=== PATIENT | male | born 1955 | race African-American/Black ===

== ENCOUNTER 2016-10-24 07:45 | Inpatient (IN) | payer OTHER ==
[~2016-10-24] VITALS: Ht 167.6 cm; Wt 65.9 kg
[~2016-10-24 07:45] MED LIST: ASPI-556 PO; METF1000 PO; SIMV-261 PO; TRIL8 PO
[2016-10-24] MEDS ORDERED: BENZ0.5T6 PO (07:58)
[2016-10-24] MEDS ORDERED: GLIP5 PO (07:58)
[2016-10-24 08:06] LABS: BASOPHILS # (AUTO) 0.03 K/uL (0.00-0.20); BASOPHILS % (AUTO) 0.3 % (0.0-2.0); EOSINOPHILS # (AUTO) 0.08 K/uL (0.00-0.70); EOSINOPHILS % (AUTO) 0.86 % (1.0-6.0); HEMATOCRIT 41.6 % (41-53); LYMPHOCYTES # (AUTO) 1.4 K/uL (1.0-4.8); LYMPHOCYTES % (AUTO) 14.7 % (22.0-44.0); MEAN CORPUSCULAR HEMOGLOBIN 28.6 pg (26.0-34.0); MEAN CORPUSCULAR HGB CONC 33.6 G/dL (31.0-37.0); MEAN CORPUSCULAR VOLUME 85 fL (80-100); MONOCYTES # (AUTO) 0.2 K/uL (0.1-1.0); MONOCYTES % (AUTO) 2.2 % (2.0-9.0); NEUTROPHILS # (AUTO) 7.8 K/uL (1.8-7.7); PLATELET COUNT (AUTO) 394 K/uL (150-450); RED BLOOD CELL COUNT(AUTO) 4.88 MIL/uL (4.50-5.90); RED CELL DISTRIBUTION WIDTH 14.5 % (11.5-14.5); WHITE BLOOD COUNT (AUTO) 9.5 K/uL (4.5-11.0)
[2016-10-24 08:06] LABS: GLUCOSE,POINT OF CARE 411 MG/DL (70-110)
[2016-10-24] MEDS ORDERED: LORazepam 2 MG/ML VIAL ONE (08:09)
[2016-10-24] MEDS ORDERED: DiphenhydrAMINE HCL 50 MG/ML VIAL ONE (08:09)
[2016-10-24] MEDS ORDERED: HALOPERIDOL LACTATE 5 MG/ML VIAL ONE (08:09)
[2016-10-24] MEDS ORDERED: INSULIN REGULAR, HUMAN 100 UNITS/ML IVP ONE (08:15)
[2016-10-24] MEDS ORDERED: HALOPERIDOL LACTATE 5 MG/ML VIAL IM ONE (08:15)
[2016-10-24] MEDS ORDERED: SODIUM CHLORIDE 0.9% 500 ML IV ONE (08:15)
[2016-10-24] MEDS ORDERED: LORazepam 2 MG/ML VIAL IM ONE (08:15)
[2016-10-24] MEDS ORDERED: DiphenhydrAMINE HCL 50 MG/ML VIAL IM ONE (08:15)
[2016-10-24 08:37] LABS: ALANINE AMINOTRANSFERASE 22 U/L (12-78); ALBUMIN 3.2 g/dL (3.4-5.0); ANION GAP 5 mmol/L (8-16); ASPARTATE AMINOTRANSFERASE 12 U/L (15-37); BILIRUBIN,TOTAL 0.3 mg/dL (0.1-1.0); CALCIUM, TOTAL 9.2 mg/dL (8.8-10.5); CARBON DIOXIDE 31 mmol/L (22-29); CHLORIDE 100 mmol/L (98-107); CREATININE 1.58 mg/dL (0.60-1.30); GLOMERULAR FILTR. RATE CALC 54 mL/min (>60); POTASSIUM 5.1 mmol/L (3.5-5.1); SODIUM SERUM 136 mmol/L (136-145); TOTAL PROTEIN, SERUM 8.5 g/dL (6.4-8.2); UREA NITROGEN, BLOOD 24 mg/dL (7-18)
[2016-10-24] MEDS ORDERED: ZOLPIDEM TARTRATE 10 MG TABLET PO PRN (09:00)
[2016-10-24] MEDS ORDERED: ACETAMINOPHEN 325 MG TABLET PO PRN (09:00)
[2016-10-24] MEDS: PANTOPRAZOLE SODIUM 40 MG DR TABLET PO SCH (09:00)
[2016-10-24] MEDS ORDERED: OxyCODONE HCL/ACETAMINOPHEN 5-325 MG TABLET PO PRN (09:00)
[2016-10-24] MEDS: BENZTROPINE MESYLATE 0.5 MG TABLET PO SCH (09:00)
[2016-10-24] MEDS ORDERED: DEXTROSE 50%-WATER 25 GM/50 ML SYRINGE IVP PRN (09:00)
[2016-10-24] MEDS: PIPERACILLIN/TAZO 3.375 GM/D5W 50 ML IV SCH ×3 (09:52→21:05)
[2016-10-24] MEDS ORDERED: VANCOMYCIN HCL 1 GM/D5% WATER 200 ML IV ONE (10:00)
[2016-10-24 10:07] LABS: GLUCOSE,POINT OF CARE 136 MG/DL (70-110)
[2016-10-24] MEDS ORDERED: IOVERSOL 350 MG/ML 100 ML VIAL ONE (10:25)
[2016-10-24] MEDS ORDERED: SODIUM CHLORIDE 0.9% 100 ML ONE (10:25)
[2016-10-24] MEDS ORDERED: VANCOMYCIN HCL 1.5 GM in DEXTROSE 5%-WATER 250 ML IV ONE (10:30)
[2016-10-24 12:07] VITALS: BP 141/95
[2016-10-24 15:06] LABS: GLUCOSE COMMENT 1 Received Meds; GLUCOSE,POINT OF CARE 153 MG/DL (70-110)
[2016-10-24] MEDS: MetFORMIN HCL 500 MG TABLET PO SCH (15:46)
[2016-10-24 15:51] VITALS: BP 119/68
[2016-10-24] MEDS: HEPARIN SODIUM,PORCINE 5,000 UNITS/ML VIAL SQ SCH ×2 (16:08→23:33)
[2016-10-24] MEDS: INSULIN ASPART 100 UNITS/ML SQ PRN ×2 (16:09→17:41)
[2016-10-24] MEDS: GlipiZIDE 5 MG TABLET PO SCH (17:39)
[2016-10-24 17:51] LABS: GLUCOSE COMMENT 1 Received Meds; GLUCOSE,POINT OF CARE 162 MG/DL (70-110)
[2016-10-24 19:20] VITALS: BP 138/72
[2016-10-24] MEDS: ASPIRIN 81 MG EC TABLET PO SCH (21:04)
[2016-10-24] MEDS: SIMVASTATIN 40 MG TABLET PO SCH (21:04)
[2016-10-24] MEDS: PERPHENAZINE 8 MG TABLET PO SCH (21:04)
[2016-10-24 23:37] VITALS: BP 118/78
[2016-10-24 23:42] LABS: GLUCOSE,POINT OF CARE 126 MG/DL (70-110)
[2016-10-25] MEDS: PIPERACILLIN/TAZO 3.375 GM/D5W 50 ML IV SCH ×4 (04:00→21:47)
[2016-10-25 04:46] VITALS: BP 122/76
[2016-10-25] MEDS: GlipiZIDE 5 MG TABLET PO SCH ×2 (06:19→16:10)
[2016-10-25 07:18] VITALS: BP 128/80
[2016-10-25] MEDS: MetFORMIN HCL 500 MG TABLET PO SCH ×2 (07:54→16:10)
[2016-10-25] MEDS: BENZTROPINE MESYLATE 0.5 MG TABLET PO SCH (07:54)
[2016-10-25] MEDS: PANTOPRAZOLE SODIUM 40 MG DR TABLET PO SCH (07:54)
[2016-10-25] MEDS: HEPARIN SODIUM,PORCINE 5,000 UNITS/ML VIAL SQ SCH ×3 (07:54→23:39)
[2016-10-25] MEDS ORDERED: VANCOMYCIN HCL 1.25 GM in DEXTROSE 5%-WATER 250 ML IV SCH (08:00)
[2016-10-25 10:09] LABS: BASOPHILS # (AUTO) 0.05 K/uL (0.00-0.20); BASOPHILS % (AUTO) 0.6 % (0.0-2.0); EOSINOPHILS # (AUTO) 0.06 K/uL (0.00-0.70); EOSINOPHILS % (AUTO) 0.71 % (1.0-6.0); HEMATOCRIT 37.1 % (41-53); HEMOGLOBIN 12.4 g/dL (13.5-17.5); LYMPHOCYTES # (AUTO) 1.8 K/uL (1.0-4.8); LYMPHOCYTES % (AUTO) 20.8 % (22.0-44.0); MEAN CORPUSCULAR HEMOGLOBIN 28.5 pg (26.0-34.0); MEAN CORPUSCULAR HGB CONC 33.4 G/dL (31.0-37.0); MEAN CORPUSCULAR VOLUME 85 fL (80-100); MONOCYTES # (AUTO) 0.3 K/uL (0.1-1.0); MONOCYTES % (AUTO) 3.8 % (2.0-9.0); NEUTROPHILS # (AUTO) 6.3 K/uL (1.8-7.7); NEUTROPHILS % (AUTO) 74.2 % (40.0-70.0); PLATELET COUNT (AUTO) 353 K/uL (150-450); RED BLOOD CELL COUNT(AUTO) 4.35 MIL/uL (4.50-5.90); RED CELL DISTRIBUTION WIDTH 13.6 % (11.5-14.5); WHITE BLOOD COUNT (AUTO) 8.5 K/uL (4.5-11.0)
[2016-10-25 10:19] LABS: HEMOGLOBIN A1C 11.1 % (4.5-6.2)
[2016-10-25 10:20] LABS: APPEARANCE,URINE CLEAR (CLEAR); GLUCOSE, URINE (UA) 500 mg/dL (NEGATIVE); KETONES,URINE NEGATIVE (NEGATIVE); LEUKOCYTE ESTERASE ,URINE NEGATIVE (NEGATIVE); OCCULT BLOOD,URINE NEGATIVE (NEGATIVE); PH,URINE 5.5 (5.0-8.0); PROTEIN,URINE TRACE (NEGATIVE)
[2016-10-25 10:21] LABS: ADD UA MICROSCOPIC YES
[2016-10-25 10:28] LABS: ALBUMIN 2.3 g/dL (3.4-5.0); BILIRUBIN,TOTAL 0.3 mg/dL (0.1-1.0); CALCIUM, TOTAL 8.3 mg/dL (8.8-10.5); CREATININE 1.46 mg/dL (0.60-1.30); POTASSIUM 4.6 mmol/L (3.5-5.1); TOTAL PROTEIN, SERUM 6.7 g/dL (6.4-8.2)
[2016-10-25 10:29] LABS: RBC,URINE None Seen /HPF (0-2); SQUAMOUS EPITHELIAL CELL,UR Few /LPF (None Seen); WBC,URINE None Seen /HPF (0-5)
[2016-10-25] MEDS: INSULIN ASPART 100 UNITS/ML SQ PRN ×2 (11:29→20:24)
[2016-10-25 11:51] VITALS: BP 125/75
[2016-10-25 12:52] LABS: GLUCOSE COMMENT 1 Received Meds; GLUCOSE,POINT OF CARE 194 MG/DL (70-110)
[2016-10-25 16:15] VITALS: BP 130/81
[2016-10-25] MEDS ORDERED: 0.9% SODIUM CHLORIDE 10 ML SYRINGE IVP PRN (19:30)
[2016-10-25 19:46] VITALS: BP 139/79
[2016-10-25] MEDS: SIMVASTATIN 40 MG TABLET PO SCH (20:22)
[2016-10-25] MEDS: ASPIRIN 81 MG EC TABLET PO SCH (20:22)
[2016-10-25] MEDS: PERPHENAZINE 8 MG TABLET PO SCH (20:22)
[2016-10-25 23:52] VITALS: BP 137/75
[2016-10-26 00:17] LABS: GLUCOSE COMMENT 1 Received Meds; GLUCOSE,POINT OF CARE 175 MG/DL (70-110)
[2016-10-26] MEDS: PIPERACILLIN/TAZO 3.375 GM/D5W 50 ML IV SCH ×4 (03:18→22:00)
[2016-10-26 05:27] VITALS: BP 133/72
[2016-10-26] MEDS: GlipiZIDE 5 MG TABLET PO SCH ×2 (05:31→16:43)
[2016-10-26] MEDS: INSULIN ASPART 100 UNITS/ML SQ PRN ×3 (05:32→20:14)
[2016-10-26 06:06] LABS: GLUCOSE COMMENT 1 Received Meds; GLUCOSE,POINT OF CARE 222 MG/DL (70-110)
[2016-10-26 07:32] LABS: BASOPHILS # (AUTO) 0.06 K/uL (0.00-0.20); BASOPHILS % (AUTO) 1.1 % (0.0-2.0); EOSINOPHILS # (AUTO) 0.06 K/uL (0.00-0.70); EOSINOPHILS % (AUTO) 1.02 % (1.0-6.0); HEMATOCRIT 34.8 % (41-53); HEMOGLOBIN 11.7 g/dL (13.5-17.5); LYMPHOCYTES # (AUTO) 1.7 K/uL (1.0-4.8); MEAN CORPUSCULAR HEMOGLOBIN 28.5 pg (26.0-34.0); MEAN CORPUSCULAR HGB CONC 33.5 G/dL (31.0-37.0); MEAN CORPUSCULAR VOLUME 85 fL (80-100); MONOCYTES # (AUTO) 0.3 K/uL (0.1-1.0); MONOCYTES % (AUTO) 5.4 % (2.0-9.0); NEUTROPHILS # (AUTO) 3.8 K/uL (1.8-7.7); NEUTROPHILS % (AUTO) 64.5 % (40.0-70.0); PLATELET COUNT (AUTO) 319 K/uL (150-450); RED BLOOD CELL COUNT(AUTO) 4.09 MIL/uL (4.50-5.90); RED CELL DISTRIBUTION WIDTH 13.9 % (11.5-14.5); WHITE BLOOD COUNT (AUTO) 5.9 K/uL (4.5-11.0)
[2016-10-26 07:35] VITALS: BP 153/84
[2016-10-26] MEDS ORDERED: VANCOMYCIN HCL 1.5 GM in DEXTROSE 5%-WATER 250 ML IV SCH (08:00)
[2016-10-26 08:01] LABS: ALANINE AMINOTRANSFERASE 16 U/L (12-78); ALBUMIN 2.3 g/dL (3.4-5.0); ANION GAP 8 mmol/L (8-16); ASPARTATE AMINOTRANSFERASE 17 U/L (15-37); BILIRUBIN,TOTAL 0.2 mg/dL (0.1-1.0); CALCIUM, TOTAL 8.1 mg/dL (8.8-10.5); CARBON DIOXIDE 25 mmol/L (22-29); CHLORIDE 100 mmol/L (98-107); CREATININE 1.28 mg/dL (0.60-1.30); GLOMERULAR FILTR. RATE CALC > 60 mL/min (>60); SODIUM SERUM 133 mmol/L (136-145); TOTAL PROTEIN, SERUM 6.5 g/dL (6.4-8.2); UREA NITROGEN, BLOOD 20 mg/dL (7-18)
[2016-10-26] MEDS: MetFORMIN HCL 500 MG TABLET PO SCH ×2 (08:28→16:44)
[2016-10-26] MEDS: HEPARIN SODIUM,PORCINE 5,000 UNITS/ML VIAL SQ SCH ×3 (08:29→23:43)
[2016-10-26] MEDS: PANTOPRAZOLE SODIUM 40 MG DR TABLET PO SCH (08:29)
[2016-10-26] MEDS: BENZTROPINE MESYLATE 0.5 MG TABLET PO SCH (08:29)
[2016-10-26] MEDS ORDERED: SODIUM CHLORIDE 0.9% 500 ML IV ONE (09:04)
[2016-10-26] MEDS ORDERED: INFLUENZA VIRUS VACCINE QVS 2016-17 (3YR+)/PF 60 MCG/0.5 ML SYRINGE IM ONE (12:00)
[2016-10-26] MEDS ORDERED: LIDOCAINE HCL 1% 10 ML VIAL INJ ONE (14:00)
[2016-10-26] MEDS: NYSTATIN 15 GM POWDER BOTTLE TP SCH (15:04)
[2016-10-26] MEDS ORDERED: SODIUM CL IRRIG SOLN BOTTLE 250 ML IRRIG ONE (15:43)
[2016-10-26 16:33] VITALS: BP 145/75
[2016-10-26] MEDS ORDERED: DEXTROSE 5%-0.45% SODIUM CHL 1,000 ML IV SCH (18:30)
[2016-10-26 19:00] VITALS: BP 139/78
[2016-10-26 19:16] LABS: GLUCOSE COMMENT 1 Received Meds; GLUCOSE,POINT OF CARE 200 MG/DL (70-110)
[2016-10-26] MEDS: PERPHENAZINE 8 MG TABLET PO SCH (20:12)
[2016-10-26] MEDS: SIMVASTATIN 40 MG TABLET PO SCH (20:13)
[2016-10-26] MEDS: ASPIRIN 81 MG EC TABLET PO SCH (20:13)
[2016-10-27] VITALS: BP 141/75
[2016-10-27] MEDS: PIPERACILLIN/TAZO 3.375 GM/D5W 50 ML IV SCH ×3 (03:20→15:13)
[2016-10-27 05:22] VITALS: BP 131/72
[2016-10-27 06:02] LABS: GLUCOSE COMMENT 1 Received Meds; GLUCOSE,POINT OF CARE 259 MG/DL (70-110)
[2016-10-27 06:11] LABS: GLUCOSE COMMENT 1 Received Meds; GLUCOSE,POINT OF CARE 164 MG/DL (70-110)
[2016-10-27 06:11] LABS: BASOPHILS % (AUTO) 0.8 % (0.0-2.0); EOSINOPHILS % (AUTO) 1.3 % (1.0-6.0); HEMATOCRIT 35.1 % (41-53); HEMOGLOBIN 11.4 g/dL (13.5-17.5); LYMPHOCYTES # (AUTO) 1.3 K/uL (1.0-4.8); LYMPHOCYTES % (AUTO) 26.8 % (22.0-44.0); MEAN CORPUSCULAR HEMOGLOBIN 27.9 pg (26.0-34.0); MEAN CORPUSCULAR HGB CONC 32.5 G/dL (31.0-37.0); MEAN CORPUSCULAR VOLUME 86 fL (80-100); MONOCYTES # (AUTO) 0.3 K/uL (0.1-1.0); MONOCYTES % (AUTO) 5.7 % (2.0-9.0); NEUTROPHILS # (AUTO) 3.3 K/uL (1.8-7.7); NEUTROPHILS % (AUTO) 65.4 % (40.0-70.0); PLATELET COUNT (AUTO) 310 K/uL (150-450); RED BLOOD CELL COUNT(AUTO) 4.08 MIL/uL (4.50-5.90); RED CELL DISTRIBUTION WIDTH 13.4 % (11.5-14.5)
[2016-10-27] MEDS: GlipiZIDE 5 MG TABLET PO SCH (06:24)
[2016-10-27] MEDS: INSULIN ASPART 100 UNITS/ML SQ PRN (06:26)
[2016-10-27 07:12] LABS: ALANINE AMINOTRANSFERASE 15 U/L (12-78); ALBUMIN 2.3 g/dL (3.4-5.0); ANION GAP 6 mmol/L (8-16); ASPARTATE AMINOTRANSFERASE 15 U/L (15-37); BILIRUBIN,TOTAL 0.2 mg/dL (0.1-1.0); CALCIUM, TOTAL 8.3 mg/dL (8.8-10.5); CARBON DIOXIDE 28 mmol/L (22-29); CHLORIDE 100 mmol/L (98-107); CREATININE 1.25 mg/dL (0.60-1.30); GLOMERULAR FILTR. RATE CALC > 60 mL/min (>60); POTASSIUM 4.6 mmol/L (3.5-5.1); SODIUM SERUM 134 mmol/L (136-145); TOTAL PROTEIN, SERUM 6.4 g/dL (6.4-8.2); UREA NITROGEN, BLOOD 13 mg/dL (7-18)
[2016-10-27 07:36] VITALS: BP 139/81
[2016-10-27] MEDS: HEPARIN SODIUM,PORCINE 5,000 UNITS/ML VIAL SQ SCH (08:00)
[2016-10-27] MEDS: MetFORMIN HCL 500 MG TABLET PO SCH (08:00)
[2016-10-27] MEDS ORDERED: VANCOMYCIN HCL 1 GM/D5% WATER 200 ML IV SCH (08:00)
[2016-10-27] MEDS: PANTOPRAZOLE SODIUM 40 MG DR TABLET PO SCH (09:00)
[2016-10-27] MEDS: BENZTROPINE MESYLATE 0.5 MG TABLET PO SCH (09:00)
[2016-10-27] MEDS: NYSTATIN 15 GM POWDER BOTTLE TP SCH (09:00)
[2016-10-27 11:57] LABS: GLUCOSE,POINT OF CARE 106 MG/DL (70-110)
[2016-10-27] MEDS ORDERED: LIDOCAINE HCL/PF 1% 30 ML VIAL ONE (13:15)
[2016-10-27] MEDS ORDERED: SODIUM CL IRRIG SOLN BAG 0 ML IRRIG ONE (13:16)
[2016-10-27] MEDS ORDERED: BACITRACIN 50,000 UNITS/VIAL ONE (13:17)
[2016-10-27] MEDS ORDERED: SODIUM CHLORIDE 0.9% 0 ML ONE (13:17)
[2016-10-27] MEDS ORDERED: BUPIVACAINE HCL/PF 0.25% 30 ML VIAL ONE (13:26)
[2016-10-27] MEDS ORDERED: RINGERS SOLUTION,LACTATED 1,000 ML IV ONE (15:12)
[2016-10-27 15:33] VITALS: BP 158/91
== END 2016-10-27 16:00 | disposition left against medical advice (07) | DRG 728 ==
LOC: EMS 07:47 → 6N 10:53
PROVIDERS: ADMIT Hospitalist; ATTEND Hospitalist
PROC: 0V95XZZ Drainage of Scrotum, External Approach (ICD-10-PCS; principal; 2016-10-24)
DX: N49.2 Inflammatory disorders of scrotum (principal); L03.314 Cellulitis of groin; E44.1 Mild protein-calorie malnutrition; F20.0 Paranoid schizophrenia; N18.9 Chronic kidney disease, unspecified; I25.10 Atherosclerotic heart disease of native coronary artery without angina pectoris; I12.9 Hypertensive chronic kidney disease with stage 1 through stage 4 chronic kidney disease, or unspecified chronic kidney disease; F31.9 Bipolar disorder, unspecified; E78.5 Hyperlipidemia, unspecified; E88.09 Other disorders of plasma-protein metabolism, not elsewhere classified; E78.00 Pure hypercholesterolemia, unspecified; K76.9 Liver disease, unspecified; E11.65 Type 2 diabetes mellitus with hyperglycemia; I25.2 Old myocardial infarction; E11.22 Type 2 diabetes mellitus with diabetic chronic kidney disease; Z95.5 Presence of coronary angioplasty implant and graft; Z79.82 Long term (current) use of aspirin; Z79.899 Other long term (current) drug therapy; Z91.14 Patient's other noncompliance with medication regimen; Z87.01 Personal history of pneumonia (recurrent); Z68.23 Body mass index [BMI] 23.0-23.9, adult
CPT/HCPCS: 74177; 76870; 82962; 83036; 87040; 87070; 87205; 90471; 96361; 96365; 96372; 96375; 99285; G0480; J1200; J1630; J1644; J2060; J2543; J3370; J3490; J7040; J7050; J7060; J7120

== ENCOUNTER 2016-11-01 03:01 | Inpatient (IN) | payer OTHER ==
[~2016-11-01] VITALS: Ht 167.6 cm; Wt 73.4 kg
[~2016-11-01 03:01] MED LIST changes: +BENZ0.5T6 PO; +GLIP5 PO
[2016-11-01] MEDS ORDERED: INSULIN REGULAR, HUMAN 100 UNITS/ML IVP ONE (03:30)
[2016-11-01] MEDS ORDERED: SODIUM CHLORIDE 0.9% 500 ML IV ONE (03:30)
[2016-11-01 04:07] LABS: BASOPHILS % (AUTO) 0.9 % (0.0-2.0); EOSINOPHILS % (AUTO) 1.1 % (1.0-6.0); HEMATOCRIT 40.1 % (41-53); LYMPHOCYTES # (AUTO) 1.5 K/uL (1.0-4.8); LYMPHOCYTES % (AUTO) 21.1 % (22.0-44.0); MEAN CORPUSCULAR HEMOGLOBIN 27.8 pg (26.0-34.0); MEAN CORPUSCULAR HGB CONC 32.4 G/dL (31.0-37.0); MEAN CORPUSCULAR VOLUME 86 fL (80-100); MONOCYTES # (AUTO) 0.3 K/uL (0.1-1.0); MONOCYTES % (AUTO) 4.4 % (2.0-9.0); NEUTROPHILS # (AUTO) 5.3 K/uL (1.8-7.7); NEUTROPHILS % (AUTO) 72.5 % (40.0-70.0); PLATELET COUNT (AUTO) 401 K/uL (150-450); RED BLOOD CELL COUNT(AUTO) 4.68 MIL/uL (4.50-5.90); RED CELL DISTRIBUTION WIDTH 14.2 % (11.5-14.5); WHITE BLOOD COUNT (AUTO) 7.3 K/uL (4.5-11.0)
[2016-11-01 04:22] LABS: ANION GAP 10 mmol/L (8-16); CALCIUM, TOTAL 9.7 mg/dL (8.8-10.5); CARBON DIOXIDE 28 mmol/L (22-29); CHLORIDE 102 mmol/L (98-107); CREATININE 1.37 mg/dL (0.60-1.30); GLOMERULAR FILTR. RATE CALC > 60 mL/min (>60); POTASSIUM 4.4 mmol/L (3.5-5.1); SODIUM SERUM 140 mmol/L (136-145); UREA NITROGEN, BLOOD 34 mg/dL (7-18)
[2016-11-01 04:30] LABS: ALANINE AMINOTRANSFERASE 25 U/L (12-78); ALBUMIN 3.6 g/dL (3.4-5.0); ASPARTATE AMINOTRANSFERASE 17 U/L (15-37); BILIRUBIN,TOTAL 0.2 mg/dL (0.1-1.0); TOTAL PROTEIN, SERUM 8.7 g/dL (6.4-8.2)
[2016-11-01] MEDS ORDERED: LORazepam 2 MG/ML VIAL IM ONE (05:00)
[2016-11-01] MEDS ORDERED: HALOPERIDOL LACTATE 5 MG/ML VIAL IM ONE (05:00)
[2016-11-01] MEDS ORDERED: DiphenhydrAMINE HCL 50 MG/ML VIAL IM ONE (05:00)
[2016-11-01 05:19] LABS: APPEARANCE,URINE CLEAR (CLEAR); GLUCOSE, URINE (UA) >=1000 mg/dL (NEGATIVE); KETONES,URINE NEGATIVE (NEGATIVE); LEUKOCYTE ESTERASE ,URINE NEGATIVE (NEGATIVE); OCCULT BLOOD,URINE MODERATE (NEGATIVE); PH,URINE 6.5 (5.0-8.0); PROTEIN,URINE POS 1+ (NEGATIVE)
[2016-11-01 05:23] LABS: ADD UA MICROSCOPIC YES
[2016-11-01 05:39] LABS: SQUAMOUS EPITHELIAL CELL,UR Rare /LPF (None Seen)
[2016-11-01 06:42] LABS: GLUCOSE,POINT OF CARE 108 MG/DL (70-110)
[2016-11-01] MEDS ORDERED: LORazepam 2 MG TABLET PO PRN (07:45)
[2016-11-01] MEDS ORDERED: HALOPERIDOL 5 MG TABLET PO PRN (07:45)
[2016-11-01] MEDS ORDERED: ZOLPIDEM TARTRATE 10 MG TABLET PO PRN (07:45)
[2016-11-01 12:51] LABS: GLUCOSE,POINT OF CARE 252 MG/DL (70-110)
[2016-11-01] MEDS ORDERED: INSULIN REGULAR, HUMAN 100 UNITS/ML SQ ONE (13:00)
[2016-11-01 13:21] LABS: GLUCOSE,POINT OF CARE 306 MG/DL (70-110)
[2016-11-01 13:57] LABS: GLUCOSE,POINT OF CARE 228 MG/DL (70-110)
[2016-11-01 14:31] VITALS: BP 126/85
[2016-11-01] MEDS ORDERED: INFLUENZA VIRUS VACCINE QVS 2016-17 (3YR+)/PF 60 MCG/0.5 ML SYRINGE IM ONE (15:15)
[2016-11-01] MEDS ORDERED: PNEUMOCOCCAL VACCINE POLYVALENT 0.5 ML VIAL [PPSV23] IM ONE (15:15)
[2016-11-01] MEDS ORDERED: DEXTROSE 50%-WATER 25 GM/50 ML SYRINGE IVP PRN (16:00)
[2016-11-01] MEDS ORDERED: INSULIN ASPART 100 UNITS/ML SQ PRN (16:00)
[2016-11-01] MEDS: MetFORMIN HCL 500 MG TABLET PO SCH (17:53)
[2016-11-01] MEDS: GlipiZIDE 5 MG TABLET PO SCH (17:53)
[2016-11-01] MEDS: DOXYCYCLINE 100 MG CAPSULE PO SCH (20:59)
[2016-11-01] MEDS ORDERED: SIMVASTATIN 40 MG TABLET PO SCH (21:00)
[2016-11-01 21:07] LABS: GLUCOSE,POINT OF CARE 127 MG/DL (70-110)
[2016-11-01 21:07] LABS: GLUCOSE,POINT OF CARE 122 MG/DL (70-110)
[2016-11-02 06:32] LABS: GLUCOSE COMMENT 1 Juice/Food/D50 Given; GLUCOSE,POINT OF CARE 65 MG/DL (70-110)
[2016-11-02 06:32] LABS: GLUCOSE COMMENT 1 Repeated; GLUCOSE,POINT OF CARE 142 MG/DL (70-110)
[2016-11-02] MEDS: GlipiZIDE 5 MG TABLET PO SCH ×2 (06:38→16:44)
[2016-11-02] MEDS: MetFORMIN HCL 500 MG TABLET PO SCH ×2 (06:38→16:44)
[2016-11-02 08:00] VITALS: BP 128/74
[2016-11-02] MEDS: ASPIRIN 81 MG CHEWABLE TABLET PO SCH (09:35)
[2016-11-02] MEDS: DOXYCYCLINE 100 MG CAPSULE PO SCH ×2 (09:35→20:41)
[2016-11-02 12:07] LABS: GLUCOSE,POINT OF CARE 67 MG/DL (70-110)
[2016-11-02] MEDS ORDERED: PERPHENAZINE 4 MG TABLET PO SCH (13:00)
[2016-11-02 13:16] LABS: GLUCOSE,POINT OF CARE 111 MG/DL (70-110)
[2016-11-02 16:00] VITALS: BP 130/90
[2016-11-02 16:52] LABS: GLUCOSE COMMENT 1 Received Meds; GLUCOSE,POINT OF CARE 92 MG/DL (70-110)
[2016-11-02] MEDS ORDERED: DEXTROSE 50%-WATER 25 GM/50 ML SYRINGE IVP PRN (20:00)
[2016-11-02 20:17] LABS: GLUCOSE,POINT OF CARE 165 MG/DL (70-110)
[2016-11-02] MEDS: SIMVASTATIN 20 MG TABLET PO SCH (20:42)
[2016-11-02] MEDS: BENZTROPINE MESYLATE 1 MG TABLET PO SCH (20:43)
[2016-11-02] MEDS: HALOPERIDOL 5 MG TABLET PO SCH (20:43)
[2016-11-02] MEDS ORDERED: BENZTROPINE MESYLATE 1 MG TABLET PO SCH (21:00)
[2016-11-03 05:48] LABS: GLUCOSE,POINT OF CARE 208 MG/DL (70-110)
[2016-11-03] MEDS: INSULIN ASPART 100 UNITS/ML SQ PRN ×4 (07:09→20:45)
[2016-11-03 08:38] VITALS: BP 140/69
[2016-11-03] MEDS: DOXYCYCLINE 100 MG CAPSULE PO SCH ×2 (09:18→21:52)
[2016-11-03] MEDS: ASPIRIN 81 MG CHEWABLE TABLET PO SCH (09:18)
[2016-11-03 11:42] LABS: GLUCOSE,POINT OF CARE 147 MG/DL (70-110)
[2016-11-03 16:00] VITALS: BP 133/79
[2016-11-03 16:11] LABS: GLUCOSE COMMENT 1 Received Meds; GLUCOSE,POINT OF CARE 182 MG/DL (70-110)
[2016-11-03 20:47] LABS: GLUCOSE COMMENT 1 Received Meds; GLUCOSE,POINT OF CARE 191 MG/DL (70-110)
[2016-11-03] MEDS: BENZTROPINE MESYLATE 1 MG TABLET PO SCH (21:51)
[2016-11-03] MEDS: HALOPERIDOL 5 MG TABLET PO SCH (21:52)
[2016-11-03] MEDS: SIMVASTATIN 20 MG TABLET PO SCH (21:53)
[2016-11-03 22:49] VITALS: BP 137/90
[2016-11-04 05:22] LABS: GLUCOSE,POINT OF CARE 148 MG/DL (70-110)
[2016-11-04] MEDS: INSULIN ASPART 100 UNITS/ML SQ PRN ×2 (06:55→11:49)
[2016-11-04 08:00] VITALS: BP 130/76
[2016-11-04] MEDS: DOXYCYCLINE 100 MG CAPSULE PO SCH ×2 (08:45→22:05)
[2016-11-04] MEDS: ASPIRIN 81 MG CHEWABLE TABLET PO SCH (08:45)
[2016-11-04 11:36] LABS: GLUCOSE,POINT OF CARE 166 MG/DL (70-110)
[2016-11-04 16:31] VITALS: BP 149/79
[2016-11-04 18:27] LABS: GLUCOSE COMMENT 1 FASTING; GLUCOSE,POINT OF CARE 87 MG/DL (70-110)
[2016-11-04] MEDS: BENZTROPINE MESYLATE 1 MG TABLET PO SCH (22:05)
[2016-11-04] MEDS: SIMVASTATIN 20 MG TABLET PO SCH (22:05)
[2016-11-04] MEDS: HALOPERIDOL 5 MG TABLET PO SCH (22:05)
[2016-11-04 22:26] LABS: GLUCOSE,POINT OF CARE 138 MG/DL (70-110)
[2016-11-05 06:32] LABS: GLUCOSE,POINT OF CARE 188 MG/DL (70-110)
[2016-11-05] MEDS: INSULIN ASPART 100 UNITS/ML SQ PRN ×3 (07:05→17:52)
[2016-11-05 08:33] VITALS: BP 152/83
[2016-11-05] MEDS: ASPIRIN 81 MG CHEWABLE TABLET PO SCH (08:53)
[2016-11-05] MEDS: DOXYCYCLINE 100 MG CAPSULE PO SCH ×2 (08:53→20:14)
[2016-11-05 11:32] LABS: GLUCOSE,POINT OF CARE 155 MG/DL (70-110)
[2016-11-05 17:36] LABS: GLUCOSE COMMENT 1 FASTING; GLUCOSE,POINT OF CARE 253 MG/DL (70-110)
[2016-11-05] MEDS: HALOPERIDOL 5 MG TABLET PO SCH (20:14)
[2016-11-05] MEDS: SIMVASTATIN 20 MG TABLET PO SCH (20:14)
[2016-11-05] MEDS: BENZTROPINE MESYLATE 1 MG TABLET PO SCH (20:14)
[2016-11-05 22:41] LABS: GLUCOSE COMMENT 1 FASTING; GLUCOSE,POINT OF CARE 129 MG/DL (70-110)
[2016-11-05 22:42] VITALS: BP 117/74
[2016-11-06 05:52] LABS: GLUCOSE,POINT OF CARE 156 MG/DL (70-110)
[2016-11-06] MEDS: INSULIN ASPART 100 UNITS/ML SQ PRN ×2 (07:07→12:46)
[2016-11-06] MEDS: ASPIRIN 81 MG CHEWABLE TABLET PO SCH (08:03)
[2016-11-06] MEDS: DOXYCYCLINE 100 MG CAPSULE PO SCH (08:03)
[2016-11-06 08:13] VITALS: BP 140/85
[2016-11-06] MEDS ORDERED: HALO5 PO (12:08)
[2016-11-06] MEDS ORDERED: BENZ1TAB10 PO (12:08)
[2016-11-06] MEDS ORDERED: DOXY100C PO (12:17)
[2016-11-06] MEDS ORDERED: SIMV-260 PO (12:17)
[2016-11-06 12:51] LABS: GLUCOSE,POINT OF CARE 242 MG/DL (70-110)
== END 2016-11-06 14:10 | disposition home or self-care (01) | DRG 885 ==
LOC: EMS 03:02 → 3EC 12:00
DX: F25.0 Schizoaffective disorder, bipolar type (principal); I25.10 Atherosclerotic heart disease of native coronary artery without angina pectoris; E78.00 Pure hypercholesterolemia, unspecified; I25.2 Old myocardial infarction; K76.9 Liver disease, unspecified; F15.10 Other stimulant abuse, uncomplicated; N49.2 Inflammatory disorders of scrotum; B95.62 Methicillin resistant Staphylococcus aureus infection as the cause of diseases classified elsewhere; N18.9 Chronic kidney disease, unspecified; E78.5 Hyperlipidemia, unspecified; N50.89 Other specified disorders of the male genital organs; I12.9 Hypertensive chronic kidney disease with stage 1 through stage 4 chronic kidney disease, or unspecified chronic kidney disease; E11.22 Type 2 diabetes mellitus with diabetic chronic kidney disease; Z71.51 Drug abuse counseling and surveillance of drug abuser; Z79.899 Other long term (current) drug therapy; Z79.82 Long term (current) use of aspirin; Z79.84 Long term (current) use of oral hypoglycemic drugs; Z95.5 Presence of coronary angioplasty implant and graft; Z98.890 Other specified postprocedural states; Z28.21 Immunization not carried out because of patient refusal; Z59.0 Homelessness; Z87.09 Personal history of other diseases of the respiratory system; Z87.01 Personal history of pneumonia (recurrent); Z81.8 Family history of other mental and behavioral disorders
CPT/HCPCS: 82962; 87070; 87081; 87147; 87205; 96372; 96374; 99285; G0480; J1200; J1630; J1815; J2060; J7040

== ENCOUNTER 2017-01-09 11:00 | Inpatient (IN) | payer OTHER ==
[~2017-01-09] VITALS: Ht 170.2 cm; Wt 77.3 kg
[~2017-01-09 11:00] MED LIST changes: -BENZ0.5T6 PO; +BENZ1TAB10 PO; +DOXY100C PO; -GLIP5 PO; +HALO5 PO; -METF1000 PO; +SIMV-260 PO; -SIMV-261 PO; -TRIL8 PO
[2017-01-09 11:12] LABS: GLUCOSE,POINT OF CARE 132 MG/DL (70-110)
[2017-01-09] MEDS ORDERED: HALOPERIDOL LACTATE 5 MG/ML VIAL IM ONE (11:30)
[2017-01-09] MEDS ORDERED: LORazepam 2 MG/ML VIAL IM ONE (11:30)
[2017-01-09] MEDS ORDERED: DiphenhydrAMINE HCL 50 MG/ML VIAL IM ONE (11:30)
[2017-01-09 11:37] LABS: BASOPHILS # (AUTO) 0.03 K/uL (0.00-0.20); BASOPHILS % (AUTO) 0.6 % (0.0-2.0); EOSINOPHILS # (AUTO) 0.05 K/uL (0.00-0.70); EOSINOPHILS % (AUTO) 0.87 % (1.0-6.0); HEMATOCRIT 41.1 % (41-53); HEMOGLOBIN 13.4 g/dL (13.5-17.5); LYMPHOCYTES # (AUTO) 1.9 K/uL (1.0-4.8); LYMPHOCYTES % (AUTO) 34.8 % (22.0-44.0); MEAN CORPUSCULAR HEMOGLOBIN 28.4 pg (26.0-34.0); MEAN CORPUSCULAR HGB CONC 32.5 G/dL (31.0-37.0); MEAN CORPUSCULAR VOLUME 87 fL (80-100); MONOCYTES # (AUTO) 0.2 K/uL (0.1-1.0); NEUTROPHILS # (AUTO) 3.3 K/uL (1.8-7.7); NEUTROPHILS % (AUTO) 59.8 % (40.0-70.0); PLATELET COUNT (AUTO) 294 K/uL (150-450); RED BLOOD CELL COUNT(AUTO) 4.71 MIL/uL (4.50-5.90); RED CELL DISTRIBUTION WIDTH 14.3 % (11.5-14.5); WHITE BLOOD COUNT (AUTO) 5.6 K/uL (4.5-11.0)
[2017-01-09 11:52] LABS: ANION GAP 8 mmol/L (8-16); CALCIUM, TOTAL 8.9 mg/dL (8.8-10.5); CARBON DIOXIDE 27 mmol/L (22-29); CHLORIDE 103 mmol/L (98-107); CREATININE 1.02 mg/dL (0.60-1.30); GLOMERULAR FILTR. RATE CALC > 60 mL/min (>60); POTASSIUM 3.8 mmol/L (3.5-5.1); SODIUM SERUM 138 mmol/L (136-145); UREA NITROGEN, BLOOD 17 mg/dL (7-18)
[2017-01-09 11:58] LABS: ALANINE AMINOTRANSFERASE 25 U/L (12-78); ALBUMIN 3.6 g/dL (3.4-5.0); ASPARTATE AMINOTRANSFERASE 18 U/L (15-37); BILIRUBIN,TOTAL 0.4 mg/dL (0.1-1.0); TOTAL PROTEIN, SERUM 7.5 g/dL (6.4-8.2)
[2017-01-09] MEDS ORDERED: ZOLPIDEM TARTRATE 10 MG TABLET PO PRN (13:30)
[2017-01-10] MEDS: HALOPERIDOL 5 MG TABLET PO PRN (20:51)
[2017-01-10] MEDS: LORazepam 2 MG TABLET PO PRN (20:51)
[2017-01-10 22:00] VITALS: BP 138/86
[2017-01-10] MEDS ORDERED: DEXTROSE 50%-WATER 25 GM/50 ML SYRINGE IVP PRN (22:30)
[2017-01-10 22:35] VITALS: BP 132/95
[2017-01-11 05:58] LABS: GLUCOSE,POINT OF CARE 141 MG/DL (70-110)
[2017-01-11] MEDS: GlipiZIDE 5 MG TABLET PO SCH ×2 (06:57→17:00)
[2017-01-11] MEDS: MetFORMIN HCL 500 MG TABLET PO SCH ×2 (06:57→17:30)
[2017-01-11] MEDS: INSULIN ASPART 100 UNITS/ML SQ PRN (07:06)
[2017-01-11 07:35] LABS: CHOL/HDL RATIO 6.2 (4.2-7.3)
[2017-01-11] MEDS: ASPIRIN 81 MG CHEWABLE TABLET PO SCH (08:16)
[2017-01-11 08:30] VITALS: BP 142/84
[2017-01-11 11:17] LABS: GLUCOSE,POINT OF CARE 78 MG/DL (70-110)
[2017-01-11] MEDS ORDERED: LORazepam 2 MG/ML VIAL ONE (16:28)
[2017-01-11] MEDS ORDERED: HALOPERIDOL LACTATE 5 MG/ML VIAL ONE (16:28)
[2017-01-11] MEDS ORDERED: DiphenhydrAMINE HCL 50 MG/ML VIAL ONE (16:29)
[2017-01-11] MEDS ORDERED: LORazepam 2 MG/ML VIAL IM ONE (16:30)
[2017-01-11] MEDS ORDERED: DiphenhydrAMINE HCL 50 MG/ML VIAL IM ONE (16:30)
[2017-01-11] MEDS ORDERED: HALOPERIDOL LACTATE 5 MG/ML VIAL IM ONE (16:30)
[2017-01-11 17:09] VITALS: BP 126/96
[2017-01-11] MEDS: SIMVASTATIN 40 MG TABLET PO SCH (20:40)
[2017-01-11] MEDS: OLANZapine 7.5 MG TABLET PO SCH (20:41)
[2017-01-11 20:47] LABS: GLUCOSE,POINT OF CARE 78 MG/DL (70-110)
[2017-01-12] MEDS: GlipiZIDE 5 MG TABLET PO SCH ×2 (06:53→17:12)
[2017-01-12] MEDS: MetFORMIN HCL 500 MG TABLET PO SCH ×2 (06:53→17:12)
[2017-01-12 06:57] LABS: GLUCOSE,POINT OF CARE 136 MG/DL (70-110)
[2017-01-12 08:58] VITALS: BP 152/95
[2017-01-12] MEDS: ASPIRIN 81 MG CHEWABLE TABLET PO SCH (09:28)
[2017-01-12] MEDS: LORazepam 2 MG TABLET PO PRN (09:28)
[2017-01-12] MEDS: HALOPERIDOL 5 MG TABLET PO PRN (09:28)
[2017-01-12] MEDS: MUPIROCIN CALCIUM 2% 22 GM OINTMENT NASAL SCH ×2 (09:32→17:12)
[2017-01-12 11:41] LABS: GLUCOSE,POINT OF CARE 82 MG/DL (70-110)
[2017-01-12 17:17] LABS: GLUCOSE,POINT OF CARE 80 MG/DL (70-110)
[2017-01-12] MEDS: SIMVASTATIN 40 MG TABLET PO SCH (20:57)
[2017-01-12] MEDS: OLANZapine 7.5 MG TABLET PO SCH (20:57)
[2017-01-12 21:03] LABS: GLUCOSE,POINT OF CARE 132 MG/DL (70-110)
[2017-01-13 05:52] LABS: GLUCOSE,POINT OF CARE 77 MG/DL (70-110)
[2017-01-13] MEDS: MetFORMIN HCL 500 MG TABLET PO SCH ×2 (07:04→17:16)
[2017-01-13] MEDS: GlipiZIDE 5 MG TABLET PO SCH ×2 (07:04→16:34)
[2017-01-13] MEDS: INSULIN ASPART 100 UNITS/ML SQ PRN (07:05)
[2017-01-13 08:04] VITALS: BP 165/93
[2017-01-13] MEDS: MUPIROCIN CALCIUM 2% 22 GM OINTMENT NASAL SCH ×2 (08:05→16:34)
[2017-01-13] MEDS: ASPIRIN 81 MG CHEWABLE TABLET PO SCH (08:05)
[2017-01-13 11:27] LABS: GLUCOSE,POINT OF CARE 100 MG/DL (70-110)
[2017-01-13 16:11] LABS: GLUCOSE,POINT OF CARE 134 MG/DL (70-110)
[2017-01-13 19:34] VITALS: BP 156/94
[2017-01-13] MEDS: OLANZapine 7.5 MG TABLET PO SCH (21:10)
[2017-01-13] MEDS: SIMVASTATIN 40 MG TABLET PO SCH (21:10)
[2017-01-14 05:17] LABS: GLUCOSE,POINT OF CARE 136 MG/DL (70-110)
[2017-01-14] MEDS: GlipiZIDE 5 MG TABLET PO SCH ×2 (07:01→16:16)
[2017-01-14] MEDS: MetFORMIN HCL 500 MG TABLET PO SCH ×2 (07:01→16:16)
[2017-01-14] MEDS: INSULIN ASPART 100 UNITS/ML SQ PRN ×2 (07:03→17:47)
[2017-01-14 08:02] VITALS: BP 167/86
[2017-01-14] MEDS: ASPIRIN 81 MG CHEWABLE TABLET PO SCH (09:31)
[2017-01-14] MEDS: MUPIROCIN CALCIUM 2% 22 GM OINTMENT NASAL SCH ×2 (09:32→16:16)
[2017-01-14 16:28] LABS: GLUCOSE COMMENT 1 FASTING; GLUCOSE,POINT OF CARE 141 MG/DL (70-110)
[2017-01-14] MEDS ORDERED: OLAN7.5T2 PO (17:52)
[2017-01-14] MEDS ORDERED: SIMV-261 PO (17:54)
[2017-01-14] MEDS ORDERED: ASPI81TA2 PO (17:55)
[2017-01-14] MEDS ORDERED: METF500T4 PO (17:56)
[2017-01-14] MEDS ORDERED: GLIP5 PO (17:56)
[2017-01-14] MEDS ORDERED: MUPI1OIN5 NASAL (18:07)
== END 2017-01-14 19:00 | disposition home or self-care (01) | DRG 885 ==
LOC: EMS 11:01 → EEVIPCON 11:01 → 3EC 01-10 20:24
PROVIDERS: ADMIT Psychiatry & Neurology Psychiatry; ATTEND Psychiatry & Neurology Psychiatry
DX: F20.0 Paranoid schizophrenia (principal); R45.851 Suicidal ideations; I25.10 Atherosclerotic heart disease of native coronary artery without angina pectoris; E11.9 Type 2 diabetes mellitus without complications; E78.00 Pure hypercholesterolemia, unspecified; I10 Essential (primary) hypertension; K76.9 Liver disease, unspecified; I25.2 Old myocardial infarction; F15.90 Other stimulant use, unspecified, uncomplicated; F31.9 Bipolar disorder, unspecified; Z95.5 Presence of coronary angioplasty implant and graft; Z87.01 Personal history of pneumonia (recurrent)
CPT/HCPCS: 82962; 83036; 87081; 96372; 99285; G0480; J1200; J1630; J2060

== ENCOUNTER 2017-12-27 14:40 | Inpatient (IN) | payer MEDICAID ==
[~2017-12-27] VITALS: Ht 170.2 cm; Wt 79.4 kg
[~2017-12-27 14:40] MED LIST changes: -ASPI-556 PO; -BENZ1TAB10 PO; +DIVA500T52 PO; -DOXY100C PO; +GLIP5 PO; -HALO5 PO; +METF500T6 PO; +OLAN5TAB40 PO; +OLAN7.5T2 PO; -SIMV-260 PO; +SIMV-261 PO
[2017-12-27 16:43] LABS: GLUCOSE,POINT OF CARE 237 MG/DL (70-110)
[2017-12-27] MEDS ORDERED: DiphenhydrAMINE HCL 50 MG/ML VIAL IM ONE (16:45)
[2017-12-27] MEDS ORDERED: LORazepam 2 MG/ML VIAL IM ONE (16:45)
[2017-12-27] MEDS ORDERED: HALOPERIDOL LACTATE 5 MG/ML VIAL IM ONE (16:45)
[2017-12-27] MEDS ORDERED: OLAN10TA3 PO (16:45)
[2017-12-27 16:56] LABS: BASOPHILS % (AUTO) 0.5 % (0.0-2.0); EOSINOPHILS % (AUTO) 0.4 % (1.0-6.0); HEMATOCRIT 47.7 % (41-53); HEMOGLOBIN 16.7 g/dL (13.5-17.5); LYMPHOCYTES # (AUTO) 0.8 K/uL (1.0-4.8); LYMPHOCYTES % (AUTO) 8.8 % (22.0-44.0); MEAN CORPUSCULAR HEMOGLOBIN 29.9 pg (26.0-34.0); MEAN CORPUSCULAR VOLUME 86 fL (80-100); MONOCYTES # (AUTO) 0.5 K/uL (0.1-1.0); MONOCYTES % (AUTO) 5.2 % (2.0-9.0); NEUTROPHILS # (AUTO) 7.5 K/uL (1.8-7.7); NEUTROPHILS % (AUTO) 85.1 % (40.0-70.0); PLATELET COUNT (AUTO) 273 K/uL (150-450); RED BLOOD CELL COUNT(AUTO) 5.57 MIL/uL (4.50-5.90); RED CELL DISTRIBUTION WIDTH 13.1 % (11.5-14.5)
[2017-12-27] MEDS ORDERED: LOPERAMIDE HCL 2 MG CAPSULE PO PRN (17:00)
[2017-12-27] MEDS ORDERED: MAGNESIUM HYDROXIDE SUSPENSION 30 ML UDCUP PO PRN (17:00)
[2017-12-27] MEDS ORDERED: TUBERCULIN, PURIFIED PROTEIN DERIVATIVE 5 TU/0.1 ML SYG ID ONE (17:00)
[2017-12-27] MEDS ORDERED: ZOLPIDEM TARTRATE 10 MG TABLET PO PRN (17:00)
[2017-12-27] MEDS ORDERED: GuaiFENesin/D-METHORPHAN [SUGAR-FREE] 200-20MG/10 ML SYRUP UDCUP PO PRN (17:00)
[2017-12-27] MEDS ORDERED: PROMETHAZINE HCL 25 MG TABLET PO PRN (17:00)
[2017-12-27] MEDS ORDERED: ACETAMINOPHEN 325 MG TABLET PO PRN (17:00)
[2017-12-27] MEDS ORDERED: MAG HYDROX/AL HYDROX/SIMETH ES 30 ML SUSPENSION UDCUP PO PRN (17:00)
[2017-12-27 17:06] LABS: ANION GAP 10 mmol/L (8-16); CALCIUM, TOTAL 9.4 mg/dL (8.8-10.5); CARBON DIOXIDE 27 mmol/L (22-29); CHLORIDE 98 mmol/L (98-107); CREATININE 1.72 mg/dL (0.60-1.30); GLOMERULAR FILTR. RATE CALC 49 mL/min (>60); GLUCOSE,RANDOM 242 mg/dL (70-110); POTASSIUM 4.1 mmol/L (3.5-5.1); SODIUM SERUM 135 mmol/L (136-145); UREA NITROGEN, BLOOD 38 mg/dL (7-18)
[2017-12-27 17:12] LABS: ALANINE AMINOTRANSFERASE 25 U/L (12-78); ALBUMIN 3.9 g/dL (3.4-5.0); ALKALINE PHOSPHATASE 110 U/L (46-116); ASPARTATE AMINOTRANSFERASE 18 U/L (15-37); BILIRUBIN,TOTAL 0.3 mg/dL (0.1-1.0); TOTAL PROTEIN, SERUM 7.9 g/dL (6.4-8.2)
[2017-12-27 17:36] LABS: VALPROIC ACID 4 mcg/mL (50-100)
[2017-12-28 09:16] LABS: BASOPHILS % (AUTO) 0.7 % (0.0-2.0); EOSINOPHILS % (AUTO) 0.6 % (1.0-6.0); HEMATOCRIT 45.9 % (41-53); HEMOGLOBIN 15.9 g/dL (13.5-17.5); LYMPHOCYTES % (AUTO) 17.6 % (22.0-44.0); MEAN CORPUSCULAR HEMOGLOBIN 29.7 pg (26.0-34.0); MEAN CORPUSCULAR HGB CONC 34.7 G/dL (31.0-37.0); MEAN CORPUSCULAR VOLUME 86 fL (80-100); MONOCYTES # (AUTO) 0.3 K/uL (0.1-1.0); NEUTROPHILS # (AUTO) 4.3 K/uL (1.8-7.7); NEUTROPHILS % (AUTO) 75.1 % (40.0-70.0); PLATELET COUNT (AUTO) 251 K/uL (150-450); RED BLOOD CELL COUNT(AUTO) 5.37 MIL/uL (4.50-5.90); RED CELL DISTRIBUTION WIDTH 13.1 % (11.5-14.5)
[2017-12-28] MEDS: NALTREXONE HCL 50 MG TABLET PO SCH (09:18)
[2017-12-28] MEDS: MULTIVITAMINS WITH MINERALS, THERAPEUTIC TABLET PO SCH (09:18)
[2017-12-28 09:19] LABS: GLUCOSE,POINT OF CARE 265 MG/DL (70-110)
[2017-12-28] MEDS: FOLIC ACID 1 MG TABLET PO SCH (09:20)
[2017-12-28] MEDS: THIAMINE HCL 100 MG TABLET PO SCH ×3 (09:20→17:28)
[2017-12-28 09:29] LABS: HEMOGLOBIN A1C 9.3 % (4.5-6.2)
[2017-12-28 09:40] LABS: ALANINE AMINOTRANSFERASE 23 U/L (12-78); ALBUMIN 3.5 g/dL (3.4-5.0); ALKALINE PHOSPHATASE 94 U/L (46-116); ANION GAP 8 mmol/L (8-16); ASPARTATE AMINOTRANSFERASE 18 U/L (15-37); BILIRUBIN,TOTAL 0.4 mg/dL (0.1-1.0); CARBON DIOXIDE 29 mmol/L (22-29); CHLORIDE 100 mmol/L (98-107); CHOL/HDL RATIO 4.9 (4.2-7.3); CHOLESTEROL 186 mg/dL (131-200); CREATININE 1.46 mg/dL (0.60-1.30); FREE T4 (FREE THYROXINE) 0.95 ng/dL (0.76-1.46); GLOMERULAR FILTR. RATE CALC 59 mL/min (>60); GLUCOSE,RANDOM 229 mg/dL (70-110); HDL CHOLESTEROL 38 mg/dL (40-60); LDL CHOL (CALC.) 122 mg/dL (0-130); POTASSIUM 3.4 mmol/L (3.5-5.1); SODIUM SERUM 137 mmol/L (136-145); THYROID STIMULATING HORMONE 0.58 uIU/mL (0.36-3.74); TOTAL PROTEIN, SERUM 7.4 g/dL (6.4-8.2); TRIGLYCERIDES 131 mg/dL (15-150); UREA NITROGEN, BLOOD 40 mg/dL (7-18); VALPROIC ACID < 3 mcg/mL (50-100)
[2017-12-28] MEDS ORDERED: GLUCAGON,HUMAN RECOMBINANT 1 MG VIAL IM PRN (10:00)
[2017-12-28 12:38] LABS: GLUCOSE,POINT OF CARE 326 MG/DL (70-110)
[2017-12-28] MEDS: MetFORMIN HCL 500 MG TABLET PO SCH ×2 (12:53→17:00)
[2017-12-28] MEDS: INSULIN LISPRO 100 UNITS/ML SQ PRN (13:01)
[2017-12-28 15:28] LABS: AMPHET/METH SCREEN,URINE POSITIVE (NEGATIVE); BARBITURATE SCREEN, URINE NEGATIVE (NEGATIVE); BENZODIAZEPINES SCREEN,URINE NEGATIVE (NEGATIVE); CANNABINOID SCREEN,URINE NEGATIVE (NEGATIVE); COCAINE SCREEN,URINE NEGATIVE (NEGATIVE); METHADONE SCREEN, URINE NEGATIVE (NEGATIVE); OPIATE SCREEN,URINE NEGATIVE (NEGATIVE)
[2017-12-28 15:30] LABS: PHENCYCLIDINE SCREEN,URINE NEGATIVE (NEGATIVE)
[2017-12-28 16:18] VITALS: BP 142/84
[2017-12-28] MEDS ORDERED: LORazepam 2 MG/ML VIAL IM ONE (19:15)
[2017-12-28] MEDS ORDERED: HALOPERIDOL LACTATE 5 MG/ML VIAL IM ONE (19:15)
[2017-12-28] MEDS ORDERED: DiphenhydrAMINE HCL 50 MG/ML VIAL IM ONE (19:15)
[2017-12-28] MEDS: OLANZapine 5 MG RAPDIS TABLET PO SCH (20:41)
[2017-12-28] MEDS: DIVALPROEX SODIUM 500 MG ER TABLET PO SCH (20:41)
[2017-12-29] MEDS: MetFORMIN HCL 500 MG TABLET PO SCH ×2 (06:53→16:52)
[2017-12-29] MEDS: INSULIN LISPRO 100 UNITS/ML SQ PRN (06:57)
[2017-12-29 07:12] LABS: GLUCOMETER DEV NAME(LOC) BV3N5; GLUCOSE,POINT OF CARE 193 MG/DL (70-110)
[2017-12-29 08:08] VITALS: BP 117/73
[2017-12-29] MEDS: OLANZapine 5 MG RAPDIS TABLET PO PRN ×2 (08:32→10:31)
[2017-12-29] MEDS: NALTREXONE HCL 50 MG TABLET PO SCH (08:32)
[2017-12-29] MEDS: FOLIC ACID 1 MG TABLET PO SCH (08:33)
[2017-12-29] MEDS: MULTIVITAMINS WITH MINERALS, THERAPEUTIC TABLET PO SCH (08:33)
[2017-12-29] MEDS: THIAMINE HCL 100 MG TABLET PO SCH ×2 (08:33→16:52)
[2017-12-29] MEDS: LORazepam 2 MG TABLET PO PRN ×2 (08:33→10:31)
[2017-12-29] MEDS: POTASSIUM CHLORIDE 20 MEQ ER TABLET PO ONE ×2 (08:33→16:51)
[2017-12-29] MEDS ORDERED: ALBUTEROL SULFATE HFA 90 MCG/PUFF 8 GM INHALER IH PRN (09:30)
[2017-12-29] MEDS ORDERED: CloNIDine HCL 0.1 MG TABLET PO PRN (09:30)
[2017-12-29 11:48] LABS: GLUCOMETER DEV NAME(LOC) BV3N5; GLUCOSE,POINT OF CARE 114 MG/DL (70-110)
[2017-12-29] MEDS: DOXYCYCLINE 100 MG CAPSULE PO SCH (16:52)
[2017-12-29] MEDS: OLANZapine 5 MG RAPDIS TABLET PO SCH (21:00)
[2017-12-29] MEDS: DIVALPROEX SODIUM 500 MG ER TABLET PO SCH (21:00)
[2017-12-30 06:38] LABS: GLUCOMETER DEV NAME(LOC) BV3N5; GLUCOSE,POINT OF CARE 125 MG/DL (70-110)
[2017-12-30] MEDS: MetFORMIN HCL 500 MG TABLET PO SCH ×2 (06:40→17:07)
[2017-12-30 08:00] VITALS: BP 145/86
[2017-12-30] MEDS: DOXYCYCLINE 100 MG CAPSULE PO SCH ×2 (08:36→17:07)
[2017-12-30] MEDS: MULTIVITAMINS WITH MINERALS, THERAPEUTIC TABLET PO SCH (08:36)
[2017-12-30] MEDS: FOLIC ACID 1 MG TABLET PO SCH (08:36)
[2017-12-30] MEDS: NALTREXONE HCL 50 MG TABLET PO SCH (08:36)
[2017-12-30] MEDS: ATENOLOL 25 MG TABLET PO SCH (08:36)
[2017-12-30] MEDS: THIAMINE HCL 100 MG TABLET PO SCH ×2 (08:37→17:07)
[2017-12-30 09:48] LABS: ANION GAP 8 mmol/L (8-16); CALCIUM, TOTAL 8.8 mg/dL (8.8-10.5); CARBON DIOXIDE 29 mmol/L (22-29); CHLORIDE 102 mmol/L (98-107); CREATININE 1.33 mg/dL (0.60-1.30); GLOMERULAR FILTR. RATE CALC > 60 mL/min (>60); GLUCOSE,RANDOM 218 mg/dL (70-110); POTASSIUM 3.9 mmol/L (3.5-5.1); SODIUM SERUM 139 mmol/L (136-145); UREA NITROGEN, BLOOD 32 mg/dL (7-18)
[2017-12-30 11:22] LABS: GLUCOMETER DEV NAME(LOC) BV3N5; GLUCOSE,POINT OF CARE 192 MG/DL (70-110)
[2017-12-30] MEDS: INSULIN LISPRO 100 UNITS/ML SQ PRN ×3 (11:33→20:46)
[2017-12-30 16:44] VITALS: BP 139/82
[2017-12-30] MEDS: HydrOXYzine PAMOATE 50 MG CAPSULE PO PRN (17:07)
[2017-12-30] MEDS: LORazepam 2 MG TABLET PO PRN (17:07)
[2017-12-30] MEDS: DIVALPROEX SODIUM 500 MG ER TABLET PO SCH (20:43)
[2017-12-30] MEDS: OLANZapine 5 MG RAPDIS TABLET PO SCH (20:44)
[2017-12-30 21:22] LABS: GLUCOMETER DEV NAME(LOC) BV3N5; GLUCOSE,POINT OF CARE 170 MG/DL (70-110)
[2017-12-30 21:22] LABS: GLUCOMETER DEV NAME(LOC) BV3N5; GLUCOSE,POINT OF CARE 147 MG/DL (70-110)
[2017-12-31] MEDS: MetFORMIN HCL 500 MG TABLET PO SCH ×2 (06:03→16:59)
[2017-12-31 06:07] LABS: GLUCOMETER DEV NAME(LOC) BV3N5; GLUCOSE,POINT OF CARE 111 MG/DL (70-110)
[2017-12-31 06:32] VITALS: BP 136/76
[2017-12-31 08:14] VITALS: BP 140/60
[2017-12-31] MEDS: MULTIVITAMINS WITH MINERALS, THERAPEUTIC TABLET PO SCH (08:20)
[2017-12-31] MEDS: FOLIC ACID 1 MG TABLET PO SCH (08:20)
[2017-12-31] MEDS: ATENOLOL 25 MG TABLET PO SCH (08:20)
[2017-12-31] MEDS: NALTREXONE HCL 50 MG TABLET PO SCH (08:20)
[2017-12-31] MEDS: DOXYCYCLINE 100 MG CAPSULE PO SCH ×2 (08:20→17:00)
[2017-12-31] MEDS: THIAMINE HCL 100 MG TABLET PO SCH ×2 (08:20→17:00)
[2017-12-31] MEDS: INSULIN LISPRO 100 UNITS/ML SQ PRN (11:29)
[2017-12-31 11:32] LABS: GLUCOMETER DEV NAME(LOC) BV3N5; GLUCOSE,POINT OF CARE 174 MG/DL (70-110)
[2017-12-31 16:20] VITALS: BP 138/82
[2017-12-31 16:53] LABS: GLUCOMETER DEV NAME(LOC) BV3N5; GLUCOSE,POINT OF CARE 119 MG/DL (70-110)
[2017-12-31] MEDS: LORazepam 2 MG TABLET PO PRN (16:59)
[2017-12-31] MEDS: HydrOXYzine PAMOATE 50 MG CAPSULE PO PRN (16:59)
[2017-12-31] MEDS: MUPIROCIN CALCIUM 2% 22 GM OINTMENT NASAL SCH (17:00)
[2017-12-31] MEDS: OLANZapine 10 MG RAPDIS TABLET PO SCH (20:22)
[2017-12-31] MEDS: DIVALPROEX SODIUM 500 MG ER TABLET PO SCH (20:22)
[2018-01-01] MEDS: MetFORMIN HCL 500 MG TABLET PO SCH ×2 (06:28→17:14)
[2018-01-01 06:32] LABS: GLUCOMETER DEV NAME(LOC) BV3N5; GLUCOSE,POINT OF CARE 109 MG/DL (70-110)
[2018-01-01 06:34] VITALS: BP 140/77
[2018-01-01 08:23] VITALS: BP 144/79
[2018-01-01] MEDS: NALTREXONE HCL 50 MG TABLET PO SCH (08:46)
[2018-01-01] MEDS: MULTIVITAMINS WITH MINERALS, THERAPEUTIC TABLET PO SCH (08:46)
[2018-01-01] MEDS: ATENOLOL 25 MG TABLET PO SCH (08:46)
[2018-01-01] MEDS: MUPIROCIN CALCIUM 2% 22 GM OINTMENT NASAL SCH ×2 (08:46→17:14)
[2018-01-01] MEDS: FOLIC ACID 1 MG TABLET PO SCH (08:46)
[2018-01-01] MEDS: LORazepam 2 MG TABLET PO PRN ×2 (08:47→17:15)
[2018-01-01] MEDS: DOXYCYCLINE 100 MG CAPSULE PO SCH ×2 (08:47→17:14)
[2018-01-01] MEDS: THIAMINE HCL 100 MG TABLET PO SCH ×2 (08:47→17:14)
[2018-01-01] MEDS: INSULIN LISPRO 100 UNITS/ML SQ PRN ×2 (11:55→17:16)
[2018-01-01 12:17] LABS: GLUCOMETER DEV NAME(LOC) BV3N5; GLUCOSE,POINT OF CARE 177 MG/DL (70-110)
[2018-01-01 16:10] VITALS: BP 135/83
[2018-01-01 17:26] LABS: GLUCOMETER DEV NAME(LOC) BV3N5; GLUCOSE,POINT OF CARE 158 MG/DL (70-110)
[2018-01-01] MEDS: DIVALPROEX SODIUM 500 MG ER TABLET PO SCH (20:34)
[2018-01-01] MEDS: OLANZapine 10 MG RAPDIS TABLET PO SCH (20:34)
[2018-01-01 20:47] LABS: GLUCOMETER DEV NAME(LOC) BV3N5; GLUCOSE,POINT OF CARE 97 MG/DL (70-110)
[2018-01-02 06:23] VITALS: BP 140/85
[2018-01-02 06:28] LABS: GLUCOMETER DEV NAME(LOC) BV3N5; GLUCOSE,POINT OF CARE 129 MG/DL (70-110)
[2018-01-02] MEDS: MetFORMIN HCL 500 MG TABLET PO SCH ×2 (06:28→17:09)
[2018-01-02 08:15] VITALS: BP 138/75
[2018-01-02] MEDS: ATENOLOL 25 MG TABLET PO SCH (09:06)
[2018-01-02] MEDS: NALTREXONE HCL 50 MG TABLET PO SCH (09:06)
[2018-01-02] MEDS: FOLIC ACID 1 MG TABLET PO SCH (09:06)
[2018-01-02] MEDS: THIAMINE HCL 100 MG TABLET PO SCH ×2 (09:06→17:09)
[2018-01-02] MEDS: MULTIVITAMINS WITH MINERALS, THERAPEUTIC TABLET PO SCH (09:06)
[2018-01-02] MEDS: DOXYCYCLINE 100 MG CAPSULE PO SCH ×2 (09:06→17:08)
[2018-01-02] MEDS: MUPIROCIN CALCIUM 2% 22 GM OINTMENT NASAL SCH ×2 (09:07→17:08)
[2018-01-02] MEDS ORDERED: ONDANSETRON HCL 4 MG TABLET PO PRN (11:30)
[2018-01-02 12:23] LABS: GLUCOMETER DEV NAME(LOC) BV3N5; GLUCOSE,POINT OF CARE 131 MG/DL (70-110)
[2018-01-02 16:30] VITALS: BP 141/85
[2018-01-02] MEDS: LORazepam 2 MG TABLET PO PRN (17:09)
[2018-01-02] MEDS: OLANZapine 10 MG RAPDIS TABLET PO SCH (20:37)
[2018-01-02] MEDS: DIVALPROEX SODIUM 500 MG ER TABLET PO SCH (20:37)
[2018-01-02] MEDS: INSULIN LISPRO 100 UNITS/ML SQ PRN (20:40)
[2018-01-02 21:02] LABS: GLUCOMETER DEV NAME(LOC) BV3N5; GLUCOSE,POINT OF CARE 158 MG/DL (70-110)
[2018-01-02 21:02] LABS: GLUCOMETER DEV NAME(LOC) BV3N5; GLUCOSE,POINT OF CARE 90 MG/DL (70-110)
[2018-01-03 06:13] VITALS: BP 135/88
[2018-01-03 06:22] LABS: GLUCOMETER DEV NAME(LOC) BV3N5; GLUCOSE,POINT OF CARE 103 MG/DL (70-110)
[2018-01-03] MEDS: MetFORMIN HCL 500 MG TABLET PO SCH ×2 (06:33→16:30)
[2018-01-03 08:19] VITALS: BP 137/79
[2018-01-03] MEDS: MUPIROCIN CALCIUM 2% 22 GM OINTMENT NASAL SCH ×2 (08:27→16:30)
[2018-01-03] MEDS: NALTREXONE HCL 50 MG TABLET PO SCH (08:27)
[2018-01-03] MEDS: FOLIC ACID 1 MG TABLET PO SCH (08:27)
[2018-01-03] MEDS: DOXYCYCLINE 100 MG CAPSULE PO SCH ×2 (08:27→16:30)
[2018-01-03] MEDS: THIAMINE HCL 100 MG TABLET PO SCH ×2 (08:27→16:30)
[2018-01-03] MEDS: ATENOLOL 25 MG TABLET PO SCH (08:27)
[2018-01-03] MEDS: MULTIVITAMINS WITH MINERALS, THERAPEUTIC TABLET PO SCH (08:27)
[2018-01-03 08:40] LABS: ANION GAP 7 mmol/L (8-16); CALCIUM, TOTAL 9.5 mg/dL (8.8-10.5); CARBON DIOXIDE 29 mmol/L (22-29); CHLORIDE 104 mmol/L (98-107); CREATININE 1.13 mg/dL (0.60-1.30); GLOMERULAR FILTR. RATE CALC > 60 mL/min (>60); GLUCOSE,RANDOM 98 mg/dL (70-110); POTASSIUM 4.4 mmol/L (3.5-5.1); SODIUM SERUM 140 mmol/L (136-145); UREA NITROGEN, BLOOD 24 mg/dL (7-18); VALPROIC ACID 70 mcg/mL (50-100)
[2018-01-03 11:13] LABS: GLUCOMETER DEV NAME(LOC) BV3N5; GLUCOSE,POINT OF CARE 110 MG/DL (70-110)
[2018-01-03] MEDS ORDERED: OLAN10TA22 PO (13:46)
[2018-01-03] MEDS ORDERED: NALT50TA PO (13:46)
[2018-01-03] MEDS ORDERED: DIVA500T52 PO (13:46)
[2018-01-03] MEDS ORDERED: DOXY150T PO (16:12)
[2018-01-03] MEDS ORDERED: METF500T6 PO (16:12)
[2018-01-03] MEDS ORDERED: ATEN25TA PO (16:13)
[2018-01-03] MEDS ORDERED: MUPI15CR TP (16:16)
== END 2018-01-03 16:55 | disposition home or self-care (01) | DRG 885 ==
LOC: EMS 14:41 → B3A 12-28 13:58
PROVIDERS: ADMIT Psychiatry & Neurology Psychiatry; ATTEND Psychiatry & Neurology Psychiatry
DX: F20.0 Paranoid schizophrenia (principal); N17.9 Acute kidney failure, unspecified; E11.65 Type 2 diabetes mellitus with hyperglycemia; R45.850 Homicidal ideations; R45.851 Suicidal ideations; F39 Unspecified mood [affective] disorder; E55.9 Vitamin D deficiency, unspecified; E78.00 Pure hypercholesterolemia, unspecified; E78.5 Hyperlipidemia, unspecified; E87.6 Hypokalemia; J44.9 Chronic obstructive pulmonary disease, unspecified; F17.210 Nicotine dependence, cigarettes, uncomplicated; F15.10 Other stimulant abuse, uncomplicated; K76.9 Liver disease, unspecified; G47.00 Insomnia, unspecified; I10 Essential (primary) hypertension; I25.10 Atherosclerotic heart disease of native coronary artery without angina pectoris; I25.2 Old myocardial infarction; Z65.3 Problems related to other legal circumstances; Z79.82 Long term (current) use of aspirin; Z79.84 Long term (current) use of oral hypoglycemic drugs; Z79.899 Other long term (current) drug therapy; Z82.49 Family history of ischemic heart disease and other diseases of the circulatory system; Z83.3 Family history of diabetes mellitus; Z91.14 Patient's other noncompliance with medication regimen; Z91.19 Patient's noncompliance with other medical treatment and regimen; Z91.5 Personal history of self-harm; Z95.5 Presence of coronary angioplasty implant and graft
CPT/HCPCS: 83036; 84439; 84443; 86592; 87081; 99285; G0480; J1200; J1630; J1815; J2060

== ENCOUNTER 2020-08-19 10:52 | Inpatient (IN) | payer MEDICAID ==
[~2020-08-19] VITALS: Ht 160 cm; Wt 83.9 kg
[~2020-08-19 10:52] MED LIST changes: +ATEN-73 PO; +DIVA-80 PO; -DIVA500T52 PO; +DOXY150T5 PO; -GLIP5 PO; +METF-960 PO; -METF500T6 PO; +MUPI15CR TP; +NALT50TA PO; +OLAN10TA22 PO; -OLAN5TAB40 PO; -OLAN7.5T2 PO; -SIMV-261 PO
[2020-08-19] MEDS ORDERED: HALO5TAB2 PO (15:31)
[2020-08-19 18:43] LABS: BASOPHILS % (AUTO) 0.7 % (0.0-2.0); EOSINOPHILS % (AUTO) 0.8 % (1.0-6.0); HEMATOCRIT 39.7 % (41-53); HEMOGLOBIN 12.9 g/dL (13.5-17.5); LYMPHOCYTES # (AUTO) 1.5 K/uL (1.0-4.8); LYMPHOCYTES % (AUTO) 25.7 % (22.0-44.0); MEAN CORPUSCULAR HEMOGLOBIN 29.2 pg (26.0-34.0); MEAN CORPUSCULAR HGB CONC 32.4 G/dL (31.0-37.0); MEAN CORPUSCULAR VOLUME 90 fL (80-100); MONOCYTES # (AUTO) 0.5 K/uL (0.1-1.0); MONOCYTES % (AUTO) 8.4 % (2.0-9.0); NEUTROPHILS # (AUTO) 3.8 K/uL (1.8-7.7); NEUTROPHILS % (AUTO) 64.4 % (40.0-70.0); PLATELET COUNT (AUTO) 344 K/uL (150-450); RED BLOOD CELL COUNT(AUTO) 4.42 MIL/uL (4.50-5.90); RED CELL DISTRIBUTION WIDTH 13.9 % (11.5-14.5)
[2020-08-19 18:53] LABS: ANION GAP 8 mmol/L (8-16); CALCIUM, TOTAL 8.8 mg/dL (8.8-10.5); CARBON DIOXIDE 26 mmol/L (22-29); CHLORIDE 107 mmol/L (98-107); CREATININE 1.13 mg/dL (0.60-1.30); GLOMERULAR FILTR. RATE CALC > 60 mL/min (>60); GLUCOSE,RANDOM 141 mg/dL (70-110); POTASSIUM 4.6 mmol/L (3.5-5.1); SODIUM SERUM 141 mmol/L (136-145); UREA NITROGEN, BLOOD 26 mg/dL (7-18)
[2020-08-19 18:55] LABS: ALANINE AMINOTRANSFERASE 76 U/L (12-78); ALBUMIN 3.3 g/dL (3.4-5.0); ALKALINE PHOSPHATASE 105 U/L (46-116); ASPARTATE AMINOTRANSFERASE 34 U/L (15-37); BILIRUBIN,TOTAL 0.6 mg/dL (0.1-1.0); TOTAL PROTEIN, SERUM 7.2 g/dL (6.4-8.2)
[2020-08-19] MEDS: LORazepam 2 MG/ML VIAL IM ONE ×2 (19:31→20:40)
[2020-08-19] MEDS: HALOPERIDOL LACTATE 5 MG/ML VIAL IM ONE ×2 (19:32→20:41)
[2020-08-19] MEDS: DiphenhydrAMINE HCL 50 MG/ML VIAL IM ONE ×2 (19:32→20:41)
[2020-08-19 20:04] LABS: AMPHET/METH SCREEN,URINE NEGATIVE (NEGATIVE); BARBITURATE SCREEN, URINE NEGATIVE (NEGATIVE); BENZODIAZEPINES SCREEN,URINE NEGATIVE (NEGATIVE); CANNABINOID SCREEN,URINE NEGATIVE (NEGATIVE); COCAINE SCREEN,URINE NEGATIVE (NEGATIVE); METHADONE SCREEN, URINE NEGATIVE (NEGATIVE); OPIATE SCREEN,URINE NEGATIVE (NEGATIVE)
[2020-08-19 20:06] LABS: PHENCYCLIDINE SCREEN,URINE NEGATIVE (NEGATIVE)
[2020-08-19] MEDS ORDERED: SODIUM CHLORIDE 0.9% 500 ML IV ONE (20:46)
[2020-08-19 21:07] LABS: COVID AG,FIA SOURCE NASOPHARYNGEAL
[2020-08-19] MEDS ORDERED: PROMETHAZINE HCL 25 MG TABLET PO PRN (21:45)
[2020-08-19] MEDS ORDERED: ACETAMINOPHEN 325 MG TABLET PO PRN (21:45)
[2020-08-19] MEDS ORDERED: GuaiFENesin/D-METHORPHAN [SUGAR-FREE] 200-20MG/10 ML SYRUP UDCUP PO PRN (21:45)
[2020-08-19] MEDS ORDERED: TUBERCULIN, PURIFIED PROTEIN DERIVATIVE 5 TU/0.1 ML SYRINGE ID ONE (21:45)
[2020-08-19] MEDS ORDERED: MAG HYDROX/AL HYDROX/SIMETH ES 30 ML SUSPENSION UDCUP PO PRN (21:45)
[2020-08-19] MEDS ORDERED: LOPERAMIDE HCL 2 MG CAPSULE PO PRN (21:45)
[2020-08-20] MEDS ORDERED: ZOLPIDEM TARTRATE 10 MG TABLET PO PRN
[2020-08-20] MEDS ORDERED: INFLUENZA VIRUS VACCINE QVS 2020-21 (6MO+)/PF 60 MCG/0.5 ML SYRINGE IM ONE (01:00)
[2020-08-20] MEDS ORDERED: -PHARMACY VACCINE NOTE- MISC ONE (01:00)
[2020-08-20 08:00] VITALS: BP 149/87
[2020-08-20] MEDS: NALTREXONE HCL 50 MG TABLET PO SCH (08:32)
[2020-08-20] MEDS: FOLIC ACID 1 MG TABLET PO SCH (08:33)
[2020-08-20] MEDS: THIAMINE 100 MG TABLET PO SCH ×2 (08:33→16:51)
[2020-08-20] MEDS: MULTIVITAMINS WITH MINERALS, THERAPEUTIC TABLET PO SCH (08:33)
[2020-08-20] MEDS: FLUoxetine HCL 20 MG CAPSULE PO SCH (08:33)
[2020-08-20] MEDS: OMEGA-3/DHA/EPA/FISH OIL 1,000 MG CAPSULE PO SCH (08:33)
[2020-08-20] MEDS: ATENOLOL 25 MG TABLET PO SCH (09:41)
[2020-08-20] MEDS ORDERED: DEXTROSE 50%-WATER 25 GM/50 ML SYRINGE IVP PRN (09:45)
[2020-08-20 11:33] LABS: GLUCOMETER DEV NAME(LOC) 3E.C; GLUCOSE,POINT OF CARE 254 MG/DL (70-110)
[2020-08-20] MEDS: INSULIN LISPRO 100 UNITS/ML SQ PRN ×3 (12:17→20:47)
[2020-08-20 16:23] LABS: GLUCOMETER DEV NAME(LOC) 3E.C; GLUCOSE,POINT OF CARE 173 MG/DL (70-110)
[2020-08-20 16:42] VITALS: BP 112/60
[2020-08-20] MEDS: MetFORMIN HCL 500 MG TABLET PO SCH (16:51)
[2020-08-20] MEDS: OLANZapine 5 MG RAPDIS TABLET PO SCH (20:39)
[2020-08-20 20:54] LABS: GLUCOMETER DEV NAME(LOC) 3E.C; GLUCOSE,POINT OF CARE 229 MG/DL (70-110)
[2020-08-21 06:50] LABS: GLUCOMETER DEV NAME(LOC) 3E.C; GLUCOSE,POINT OF CARE 183 MG/DL (70-110)
[2020-08-21] MEDS: MetFORMIN HCL 500 MG TABLET PO SCH ×2 (06:52→17:30)
[2020-08-21] MEDS: INSULIN LISPRO 100 UNITS/ML SQ PRN ×2 (06:53→11:53)
[2020-08-21] MEDS: FOLIC ACID 1 MG TABLET PO SCH (10:14)
[2020-08-21] MEDS: OMEGA-3/DHA/EPA/FISH OIL 1,000 MG CAPSULE PO SCH (10:14)
[2020-08-21] MEDS: THIAMINE 100 MG TABLET PO SCH ×2 (10:14→17:00)
[2020-08-21] MEDS: FLUoxetine HCL 20 MG CAPSULE PO SCH (10:14)
[2020-08-21] MEDS: ATENOLOL 25 MG TABLET PO SCH (10:14)
[2020-08-21] MEDS: MULTIVITAMINS WITH MINERALS, THERAPEUTIC TABLET PO SCH (10:14)
[2020-08-21] MEDS: NALTREXONE HCL 50 MG TABLET PO SCH (10:14)
[2020-08-21 12:02] LABS: GLUCOMETER DEV NAME(LOC) 3E.C; GLUCOSE,POINT OF CARE 196 MG/DL (70-110)
[2020-08-21 17:08] VITALS: BP 105/60
[2020-08-21] MEDS: OLANZapine 5 MG RAPDIS TABLET PO SCH (21:00)
[2020-08-21] MEDS: DIVALPROEX SODIUM 500 MG ER TABLET PO SCH (21:00)
[2020-08-22 06:36] LABS: GLUCOMETER DEV NAME(LOC) 3E.C; GLUCOSE,POINT OF CARE 156 MG/DL (70-110)
[2020-08-22] MEDS: INSULIN LISPRO 100 UNITS/ML SQ PRN ×3 (06:55→21:28)
[2020-08-22] MEDS: MetFORMIN HCL 500 MG TABLET PO SCH ×2 (06:59→16:56)
[2020-08-22] MEDS: FLUoxetine HCL 20 MG CAPSULE PO SCH (07:39)
[2020-08-22] MEDS: FOLIC ACID 1 MG TABLET PO SCH (07:39)
[2020-08-22] MEDS: OMEGA-3/DHA/EPA/FISH OIL 1,000 MG CAPSULE PO SCH (07:39)
[2020-08-22] MEDS: MULTIVITAMINS WITH MINERALS, THERAPEUTIC TABLET PO SCH (07:39)
[2020-08-22] MEDS: THIAMINE 100 MG TABLET PO SCH ×2 (07:39→16:56)
[2020-08-22] MEDS: OLANZapine 5 MG RAPDIS TABLET PO PRN (07:39)
[2020-08-22] MEDS: ATENOLOL 25 MG TABLET PO SCH (07:39)
[2020-08-22] MEDS: HydrOXYzine PAMOATE 50 MG CAPSULE PO PRN ×2 (07:39→16:56)
[2020-08-22 08:00] VITALS: BP 163/84
[2020-08-22] MEDS: NALTREXONE HCL 50 MG TABLET PO SCH (08:29)
[2020-08-22 11:58] LABS: GLUCOMETER DEV NAME(LOC) 3E.C; GLUCOSE,POINT OF CARE 329 MG/DL (70-110)
[2020-08-22 16:13] VITALS: BP 130/74
[2020-08-22] MEDS: LORazepam 2 MG TABLET PO PRN (16:56)
[2020-08-22 17:07] LABS: GLUCOMETER DEV NAME(LOC) 3E.C; GLUCOSE,POINT OF CARE 105 MG/DL (70-110)
[2020-08-22] MEDS: OLANZapine 5 MG RAPDIS TABLET PO SCH (20:23)
[2020-08-22] MEDS: DIVALPROEX SODIUM 500 MG ER TABLET PO SCH (20:23)
[2020-08-22 21:33] LABS: GLUCOMETER DEV NAME(LOC) 3E.C; GLUCOSE,POINT OF CARE 228 MG/DL (70-110)
[2020-08-22] MEDS: OLANZapine 10 MG RAPDIS TABLET PO SCH (21:35)
[2020-08-23 05:28] LABS: GLUCOMETER DEV NAME(LOC) 3E.C; GLUCOSE,POINT OF CARE 190 MG/DL (70-110)
[2020-08-23 05:41] VITALS: BP 180/92
[2020-08-23] MEDS: MetFORMIN HCL 500 MG TABLET PO SCH ×2 (06:44→16:38)
[2020-08-23] MEDS: INSULIN LISPRO 100 UNITS/ML SQ PRN ×4 (06:45→21:00)
[2020-08-23 08:00] VITALS: BP 191/96
[2020-08-23] MEDS: OMEGA-3/DHA/EPA/FISH OIL 1,000 MG CAPSULE PO SCH (08:23)
[2020-08-23] MEDS: ATENOLOL 25 MG TABLET PO SCH (08:23)
[2020-08-23] MEDS: MULTIVITAMINS WITH MINERALS, THERAPEUTIC TABLET PO SCH (08:23)
[2020-08-23] MEDS: FOLIC ACID 1 MG TABLET PO SCH (08:23)
[2020-08-23] MEDS: FLUoxetine HCL 20 MG CAPSULE PO SCH (08:23)
[2020-08-23] MEDS: NALTREXONE HCL 50 MG TABLET PO SCH (08:23)
[2020-08-23] MEDS: OLANZapine 5 MG RAPDIS TABLET PO PRN (08:25)
[2020-08-23] MEDS: LORazepam 2 MG TABLET PO PRN (08:25)
[2020-08-23] MEDS: THIAMINE 100 MG TABLET PO SCH ×2 (08:28→16:38)
[2020-08-23 11:35] LABS: GLUCOMETER DEV NAME(LOC) 3E.C; GLUCOSE,POINT OF CARE 290 MG/DL (70-110)
[2020-08-23 16:00] VITALS: BP 136/84
[2020-08-23 17:17] LABS: GLUCOMETER DEV NAME(LOC) 3E.C; GLUCOSE,POINT OF CARE 268 MG/DL (70-110)
[2020-08-23] MEDS: OLANZapine 10 MG RAPDIS TABLET PO SCH (20:41)
[2020-08-23] MEDS: DIVALPROEX SODIUM 500 MG ER TABLET PO SCH (20:41)
[2020-08-23 21:32] LABS: GLUCOMETER DEV NAME(LOC) 3E.C; GLUCOSE,POINT OF CARE 205 MG/DL (70-110)
[2020-08-24] MEDS: LORazepam 2 MG TABLET PO PRN ×2 (02:14→08:44)
[2020-08-24] MEDS: MetFORMIN HCL 500 MG TABLET PO SCH ×2 (07:08→16:32)
[2020-08-24] MEDS: INSULIN LISPRO 100 UNITS/ML SQ PRN ×4 (07:09→21:01)
[2020-08-24 07:30] LABS: GLUCOMETER DEV NAME(LOC) 3E.C; GLUCOSE,POINT OF CARE 315 MG/DL (70-110)
[2020-08-24 08:00] VITALS: BP 173/96
[2020-08-24] MEDS: ATENOLOL 25 MG TABLET PO SCH (08:35)
[2020-08-24] MEDS: OMEGA-3/DHA/EPA/FISH OIL 1,000 MG CAPSULE PO SCH (08:35)
[2020-08-24] MEDS: FLUoxetine HCL 20 MG CAPSULE PO SCH (08:35)
[2020-08-24] MEDS: MULTIVITAMINS WITH MINERALS, THERAPEUTIC TABLET PO SCH (08:35)
[2020-08-24] MEDS: FOLIC ACID 1 MG TABLET PO SCH (08:35)
[2020-08-24] MEDS: THIAMINE 100 MG TABLET PO SCH ×2 (08:35→16:32)
[2020-08-24] MEDS: NALTREXONE HCL 50 MG TABLET PO SCH (08:35)
[2020-08-24 11:54] LABS: GLUCOMETER DEV NAME(LOC) 3E.C; GLUCOSE,POINT OF CARE 279 MG/DL (70-110)
[2020-08-24 16:13] VITALS: BP 129/78
[2020-08-24 17:13] LABS: GLUCOMETER DEV NAME(LOC) 3E.C; GLUCOSE,POINT OF CARE 205 MG/DL (70-110)
[2020-08-24] MEDS: OLANZapine 10 MG RAPDIS TABLET PO SCH (20:29)
[2020-08-24] MEDS: DIVALPROEX SODIUM 500 MG ER TABLET PO SCH (20:29)
[2020-08-24 21:23] LABS: GLUCOMETER DEV NAME(LOC) 3E.C; GLUCOSE,POINT OF CARE 171 MG/DL (70-110)
[2020-08-25 05:43] VITALS: BP 182/100
[2020-08-25 06:01] LABS: GLUCOMETER DEV NAME(LOC) 3E.C; GLUCOSE,POINT OF CARE 193 MG/DL (70-110)
[2020-08-25] MEDS: INSULIN LISPRO 100 UNITS/ML SQ PRN ×4 (06:47→21:30)
[2020-08-25] MEDS: MetFORMIN HCL 500 MG TABLET PO SCH ×2 (06:47→16:32)
[2020-08-25] MEDS: OMEGA-3/DHA/EPA/FISH OIL 1,000 MG CAPSULE PO SCH (08:32)
[2020-08-25] MEDS: FOLIC ACID 1 MG TABLET PO SCH (08:32)
[2020-08-25] MEDS: NALTREXONE HCL 50 MG TABLET PO SCH (08:33)
[2020-08-25] MEDS: LORazepam 2 MG TABLET PO PRN (08:33)
[2020-08-25] MEDS: ATENOLOL 25 MG TABLET PO SCH (08:33)
[2020-08-25] MEDS: MULTIVITAMINS WITH MINERALS, THERAPEUTIC TABLET PO SCH (08:33)
[2020-08-25] MEDS: FLUoxetine HCL 20 MG CAPSULE PO SCH (08:33)
[2020-08-25] MEDS: OLANZapine 5 MG RAPDIS TABLET PO PRN (08:33)
[2020-08-25] MEDS: THIAMINE 100 MG TABLET PO SCH ×2 (08:33→16:32)
[2020-08-25 09:07] VITALS: BP 171/86
[2020-08-25 12:12] LABS: GLUCOMETER DEV NAME(LOC) 3E.C; GLUCOSE,POINT OF CARE 301 MG/DL (70-110)
[2020-08-25 16:44] VITALS: BP 147/75
[2020-08-25 17:14] LABS: GLUCOMETER DEV NAME(LOC) 3E.C; GLUCOSE,POINT OF CARE 261 MG/DL (70-110)
[2020-08-25 19:50] LABS: COVID AG,FIA SOURCE NASOPHARYNGEAL
[2020-08-25] MEDS: DIVALPROEX SODIUM 500 MG ER TABLET PO SCH (20:56)
[2020-08-25] MEDS: OLANZapine 10 MG RAPDIS TABLET PO SCH (20:56)
[2020-08-25 21:50] LABS: GLUCOMETER DEV NAME(LOC) 3E.C; GLUCOSE,POINT OF CARE 218 MG/DL (70-110)
[2020-08-26 06:37] LABS: GLUCOMETER DEV NAME(LOC) 3E.C; GLUCOSE,POINT OF CARE 304 MG/DL (70-110)
[2020-08-26] MEDS: MetFORMIN HCL 500 MG TABLET PO SCH ×2 (06:53→16:41)
[2020-08-26] MEDS: INSULIN LISPRO 100 UNITS/ML SQ PRN ×4 (06:54→21:43)
[2020-08-26 08:00] VITALS: BP 143/74
[2020-08-26] MEDS: FLUoxetine HCL 20 MG CAPSULE PO SCH (08:36)
[2020-08-26] MEDS: MULTIVITAMINS WITH MINERALS, THERAPEUTIC TABLET PO SCH (08:36)
[2020-08-26] MEDS: OMEGA-3/DHA/EPA/FISH OIL 1,000 MG CAPSULE PO SCH (08:36)
[2020-08-26] MEDS: NALTREXONE HCL 50 MG TABLET PO SCH (08:36)
[2020-08-26] MEDS: FOLIC ACID 1 MG TABLET PO SCH (08:36)
[2020-08-26] MEDS: THIAMINE 100 MG TABLET PO SCH ×2 (08:36→16:41)
[2020-08-26] MEDS: ATENOLOL 25 MG TABLET PO SCH (08:37)
[2020-08-26 10:56] LABS: GLUCOMETER DEV NAME(LOC) 3E.C; GLUCOSE,POINT OF CARE 296 MG/DL (70-110)
[2020-08-26] MEDS: LORazepam 2 MG TABLET PO PRN (13:56)
[2020-08-26] MEDS: OLANZapine 5 MG RAPDIS TABLET PO PRN (16:41)
[2020-08-26 16:45] LABS: GLUCOMETER DEV NAME(LOC) 3E.C; GLUCOSE,POINT OF CARE 321 MG/DL (70-110)
[2020-08-26 17:04] VITALS: BP 154/84
[2020-08-26] MEDS ORDERED: OMEG-135 PO (18:33)
[2020-08-26] MEDS ORDERED: FLUO-191 PO (18:33)
[2020-08-26] MEDS ORDERED: DIVA-80 PO (18:33)
[2020-08-26] MEDS ORDERED: NALT50TA PO (18:33)
[2020-08-26] MEDS ORDERED: OLAN10TA22 PO (18:33)
[2020-08-26 20:46] LABS: GLUCOMETER DEV NAME(LOC) 3E.C; GLUCOSE,POINT OF CARE 204 MG/DL (70-110)
[2020-08-26] MEDS: DIVALPROEX SODIUM 500 MG ER TABLET PO SCH (21:14)
[2020-08-26] MEDS: OLANZapine 10 MG RAPDIS TABLET PO SCH (21:14)
[2020-08-27 06:09] LABS: GLUCOMETER DEV NAME(LOC) 3E.C; GLUCOSE,POINT OF CARE 274 MG/DL (70-110)
[2020-08-27] MEDS: MetFORMIN HCL 500 MG TABLET PO SCH ×2 (07:01→16:46)
[2020-08-27] MEDS: INSULIN LISPRO 100 UNITS/ML SQ PRN ×4 (07:04→21:15)
[2020-08-27] MEDS: FOLIC ACID 1 MG TABLET PO SCH (09:34)
[2020-08-27] MEDS: OLANZapine 5 MG RAPDIS TABLET PO PRN ×2 (09:34→16:46)
[2020-08-27] MEDS: FLUoxetine HCL 20 MG CAPSULE PO SCH (09:34)
[2020-08-27] MEDS: LORazepam 2 MG TABLET PO PRN (09:35)
[2020-08-27] MEDS: THIAMINE 100 MG TABLET PO SCH ×2 (09:35→16:46)
[2020-08-27] MEDS: MULTIVITAMINS WITH MINERALS, THERAPEUTIC TABLET PO SCH (09:35)
[2020-08-27] MEDS: OMEGA-3/DHA/EPA/FISH OIL 1,000 MG CAPSULE PO SCH (09:35)
[2020-08-27] MEDS: NALTREXONE HCL 50 MG TABLET PO SCH (09:35)
[2020-08-27] MEDS: ATENOLOL 25 MG TABLET PO SCH ×2 (09:35→16:57)
[2020-08-27 11:25] LABS: GLUCOMETER DEV NAME(LOC) 3E.C; GLUCOSE,POINT OF CARE 306 MG/DL (70-110)
[2020-08-27 16:51] LABS: GLUCOMETER DEV NAME(LOC) 3E.C; GLUCOSE,POINT OF CARE 288 MG/DL (70-110)
[2020-08-27 16:55] VITALS: BP 109/63
[2020-08-27] MEDS ORDERED: NYSTATIN 15 GM POWDER BOTTLE TP SCH (17:00)
[2020-08-27] MEDS: DIVALPROEX SODIUM 500 MG ER TABLET PO SCH (20:51)
[2020-08-27] MEDS: OLANZapine 10 MG RAPDIS TABLET PO SCH (20:51)
[2020-08-27] MEDS ORDERED: INSULIN GLARGINE,HUM.REC.ANLOG 100 UNITS/ML SQ SCH (21:00)
[2020-08-27 21:03] LABS: GLUCOMETER DEV NAME(LOC) 3E.C; GLUCOSE,POINT OF CARE 244 MG/DL (70-110)
[2020-08-28] MEDS: MetFORMIN HCL 500 MG TABLET PO SCH (07:05)
[2020-08-28] MEDS: INSULIN LISPRO 100 UNITS/ML SQ PRN ×2 (07:10→13:09)
[2020-08-28 07:54] LABS: GLUCOMETER DEV NAME(LOC) 3E.C; GLUCOSE,POINT OF CARE 202 MG/DL (70-110)
[2020-08-28 08:00] VITALS: BP 171/87
[2020-08-28] MEDS: FLUoxetine HCL 20 MG CAPSULE PO SCH (08:43)
[2020-08-28] MEDS: ATENOLOL 25 MG TABLET PO SCH (08:43)
[2020-08-28] MEDS: NALTREXONE HCL 50 MG TABLET PO SCH (08:43)
[2020-08-28] MEDS: FOLIC ACID 1 MG TABLET PO SCH (08:43)
[2020-08-28] MEDS: OMEGA-3/DHA/EPA/FISH OIL 1,000 MG CAPSULE PO SCH (08:43)
[2020-08-28] MEDS: THIAMINE 100 MG TABLET PO SCH (08:43)
[2020-08-28] MEDS: MULTIVITAMINS WITH MINERALS, THERAPEUTIC TABLET PO SCH (08:43)
[2020-08-28] MEDS ORDERED: ATEN-73 PO (10:48)
[2020-08-28] MEDS ORDERED: INSLAN SQ (10:49)
[2020-08-28] MEDS ORDERED: OMEG-136 PO (10:51)
[2020-08-28 11:54] LABS: GLUCOMETER DEV NAME(LOC) 3E.C; GLUCOSE,POINT OF CARE 298 MG/DL (70-110)
== END 2020-08-28 15:00 | disposition home or self-care (01) | DRG 750 ==
LOC: EMS 10:53 → 3EC 22:57
PROVIDERS: ADMIT Psychiatry & Neurology Psychiatry; ATTEND Psychiatry & Neurology Psychiatry
DX: F25.1 Schizoaffective disorder, depressive type (principal); J44.9 Chronic obstructive pulmonary disease, unspecified; E11.22 Type 2 diabetes mellitus with diabetic chronic kidney disease; I12.9 Hypertensive chronic kidney disease with stage 1 through stage 4 chronic kidney disease, or unspecified chronic kidney disease; E78.00 Pure hypercholesterolemia, unspecified; D64.9 Anemia, unspecified; Z87.01 Personal history of pneumonia (recurrent); E78.5 Hyperlipidemia, unspecified; N18.9 Chronic kidney disease, unspecified; F15.90 Other stimulant use, unspecified, uncomplicated; Z59.0 Homelessness; Z91.14 Patient's other noncompliance with medication regimen; I25.2 Old myocardial infarction; I25.10 Atherosclerotic heart disease of native coronary artery without angina pectoris; K76.9 Liver disease, unspecified; F17.210 Nicotine dependence, cigarettes, uncomplicated; Z91.19 Patient's noncompliance with other medical treatment and regimen; B35.3 Tinea pedis; Z20.828 Contact with and (suspected) exposure to other viral communicable diseases; Z23 Encounter for immunization
CPT/HCPCS: 87081; 87426; 90686; 99291; G0480; J1200; J1630; J1815; J2060; J7040

== ENCOUNTER 2020-09-14 20:31 | Emergency (ER) | payer MEDICAID ==
[~2020-09-14] VITALS: Ht 170.2 cm; Wt 79.1 kg
[~2020-09-14 20:31] MED LIST changes: -DOXY150T5 PO; +FLUO-191 PO; -MUPI15CR TP; +OMEG-135 PO
[2020-09-14 20:42] VITALS: BP 126/74
== END 2020-09-14 23:00 | disposition left against medical advice (07) ==
LOC: EMS 20:33
DX: M79.89 Other specified soft tissue disorders (principal); Z53.21 Procedure and treatment not carried out due to patient leaving prior to being seen by health care provider

== ENCOUNTER 2021-08-10 23:49 | Inpatient (IN) | payer MEDICAID ==
[~2021-08-10] VITALS: Ht 170.2 cm; Wt 81.2 kg
[~2021-08-10 23:49] MED LIST changes: +METF-1211 PO; -METF-960 PO
[2021-08-11] MEDS ORDERED: SODIUM CHLORIDE 0.9% 1,000 ML IV ONE ×2 (01:30→12:45)
[2021-08-11 01:35] LABS: BASOPHILS % (AUTO) 0.8 % (0.0-2.0); EOSINOPHILS % (AUTO) 0.6 % (1.0-6.0); HEMATOCRIT 42.3 % (41-53); HEMOGLOBIN 14.1 g/dL (13.5-17.5); LYMPHOCYTES # (AUTO) 1.4 K/uL (1.0-4.8); LYMPHOCYTES % (AUTO) 16.5 % (22.0-44.0); MEAN CORPUSCULAR HEMOGLOBIN 29.5 pg (26.0-34.0); MEAN CORPUSCULAR HGB CONC 33.2 G/dL (31.0-37.0); MEAN CORPUSCULAR VOLUME 89 fL (80-100); MONOCYTES # (AUTO) 0.5 K/uL (0.1-1.0); MONOCYTES % (AUTO) 5.5 % (2.0-9.0); NEUTROPHILS # (AUTO) 6.5 K/uL (1.8-7.7); NEUTROPHILS % (AUTO) 76.6 % (40.0-70.0); PLATELET COUNT (AUTO) 257 K/uL (150-450); RED BLOOD CELL COUNT(AUTO) 4.76 MIL/uL (4.50-5.90)
[2021-08-11 01:36] LABS: GLUCOMETER DEV NAME(LOC) ERT.5; GLUCOSE,POINT OF CARE > 600 MG/DL (70-110)
[2021-08-11 01:49] LABS: ALANINE AMINOTRANSFERASE 22 U/L (12-78); ALKALINE PHOSPHATASE 208 U/L (46-116); ANION GAP 8 mmol/L (8-16); ASPARTATE AMINOTRANSFERASE 10 U/L (15-37); BILIRUBIN,TOTAL 0.2 mg/dL (0.1-1.0); CARBON DIOXIDE 27 mmol/L (22-29); CHLORIDE 94 mmol/L (98-107); CREATININE 2.07 mg/dL (0.60-1.30); GLOMERULAR FILTR. RATE CALC 39 mL/min (>60); SODIUM SERUM 129 mmol/L (136-145); TOTAL PROTEIN, SERUM 6.9 g/dL (6.4-8.2); UREA NITROGEN, BLOOD 37 mg/dL (7-18)
[2021-08-11 01:51] LABS: ACETONE,BLOOD NEGATIVE (NEGATIVE)
[2021-08-11] MEDS ORDERED: INSULIN REGULAR, HUMAN 100 UNITS/ML IVP ONE (02:00)
[2021-08-11 02:04] LABS: POTASSIUM 6.2 mmol/L (3.5-5.1)
[2021-08-11 02:05] LABS: GLUCOSE,RANDOM 841 mg/dL (70-110)
[2021-08-11] MEDS ORDERED: CALCIUM GLUCONATE 0.465 MEQ/ML 10 ML VIAL IVP ONE (02:15)
[2021-08-11] MEDS ORDERED: ALBUTEROL SULFATE 2.5 MG/0.5 ML NEB SOLUTION NEB ONE (02:15)
[2021-08-11] MEDS ORDERED: 0.9% SODIUM CHLORIDE 5 ML NEB SOLUTION NEB ONE (02:40)
[2021-08-11] MEDS ORDERED: ONDANSETRON HCL 4 MG/2 ML VIAL IVP PRN ×2 (03:00→08:00)
[2021-08-11] MEDS ORDERED: ACETAMINOPHEN 325 MG TABLET PO PRN ×2 (03:00→08:00)
[2021-08-11] MEDS ORDERED: 0.9% SODIUM CHLORIDE 10 ML SYRINGE IVP PRN (03:00)
[2021-08-11 03:55] LABS: GLUCOMETER DEV NAME(LOC) ERT.5; GLUCOSE,POINT OF CARE 524 MG/DL (70-110)
[2021-08-11 04:27] LABS: GLUCOMETER DEV NAME(LOC) ERT.5; GLUCOSE,POINT OF CARE 408 MG/DL (70-110)
[2021-08-11 07:52] LABS: GLUCOSE,POINT OF CARE 340 MG/DL (70-110)
[2021-08-11 07:54] LABS: COVID AG,FIA SOURCE NASOPHARYNGEAL
[2021-08-11] MEDS ORDERED: CloNIDine HCL 0.1 MG TABLET PO PRN (08:00)
[2021-08-11] MEDS ORDERED: DEXTROSE 50%-WATER 25 GM/50 ML SYRINGE IVP PRN ×2 (08:00→12:15)
[2021-08-11] MEDS ORDERED: HEPARIN SODIUM,PORCINE 5,000 UNITS/ML VIAL SQ SCH (08:00)
[2021-08-11] MEDS ORDERED: SODIUM CHLORIDE 0.9% 1,000 ML IV SCH (08:00)
[2021-08-11] MEDS ORDERED: INSULIN LISPRO 100 UNITS/ML SQ PRN ×2 (08:00→12:15)
[2021-08-11] MEDS ORDERED: FAMOTIDINE 20 MG TABLET PO SCH (09:00)
[2021-08-11] MEDS ORDERED: INSULIN GLARGINE,HUM.REC.ANLOG 100 UNITS/ML SQ SCH ×2 (09:00→21:00)
[2021-08-11] MEDS ORDERED: AmLODIPine BESYLATE 10 MG TABLET PO SCH (09:00)
[2021-08-11] MEDS ORDERED: ASPIRIN 81 MG CHEWABLE TABLET PO SCH (09:00)
[2021-08-11] MEDS ORDERED: DOCUSATE SODIUM 100 MG CAPSULE PO SCH (09:00)
[2021-08-11 09:09] VITALS: BP 147/82
[2021-08-11 11:28] VITALS: BP 159/99
[2021-08-11] MEDS ORDERED: INSULIN LISPRO 100 UNITS/ML SQ ONE ×2 (12:15→14:00)
[2021-08-11 13:49] LABS: CALCIUM, TOTAL 8.5 mg/dL (8.8-10.5); CREATININE 1.55 mg/dL (0.60-1.30); POTASSIUM 5.1 mmol/L (3.5-5.1)
[2021-08-11 15:35] VITALS: BP 159/73
[2021-08-12 06:43] LABS: GLUCOMETER DEV NAME(LOC) 5N.3; GLUCOSE,POINT OF CARE 478 MG/DL (70-110)
== END 2021-08-11 15:50 | disposition left against medical advice (07) | DRG 420 ==
LOC: EMS 23:49 → 5S 08-11 07:10
PROVIDERS: ADMIT Internal Medicine; ATTEND Internal Medicine
DX: E11.00 Type 2 diabetes mellitus with hyperosmolarity without nonketotic hyperglycemic-hyperosmolar coma (NKHHC) (principal); N17.9 Acute kidney failure, unspecified; E11.65 Type 2 diabetes mellitus with hyperglycemia; E87.5 Hyperkalemia; I25.10 Atherosclerotic heart disease of native coronary artery without angina pectoris; I10 Essential (primary) hypertension; F31.9 Bipolar disorder, unspecified; F17.200 Nicotine dependence, unspecified, uncomplicated; E78.00 Pure hypercholesterolemia, unspecified; Z20.822 Contact with and (suspected) exposure to COVID-19; Z53.29 Procedure and treatment not carried out because of patient's decision for other reasons; F20.9 Schizophrenia, unspecified; F19.10 Other psychoactive substance abuse, uncomplicated; Z91.19 Patient's noncompliance with other medical treatment and regimen; I25.2 Old myocardial infarction; Z87.01 Personal history of pneumonia (recurrent); Z79.4 Long term (current) use of insulin; Z79.899 Other long term (current) drug therapy
CPT/HCPCS: 76770; 80048; 80053; 82009; 82962; 83036; 85025; 93005; 93041; 94640; 99285; J0610; J1644; J1815; J7030

== ENCOUNTER 2023-06-30 15:06 | Inpatient (IN) | payer MEDICAID ==
[~2023-06-30] VITALS: Ht 177.8 cm; Wt 74.9 kg
[2023-06-30] VITALS (8 sets, daily range): BP systolic 86–153; BP diastolic 51–91; PULSE 75–114; RESP 16–25; TEMP 97.7–97.8; O2SAT 92–100
[~2023-06-30 15:06] MED LIST changes: -DIVA-80 PO; +DIVA500T53 PO; +FLUO-177 PO; -FLUO-191 PO
[2023-06-30] MEDS ORDERED: DEXTROSE 50%-WATER 25 GM/50 ML SYRINGE IVP ONE ×3 (15:39→16:45)
[2023-06-30] MEDS ORDERED: LABETALOL HCL 5 MG/ML 20 ML VIAL IVP ONE (15:45)
[2023-06-30] MEDS ORDERED: NiCARDipine HCL 25 MG in SODIUM CHLORIDE 0.9% 240 ML IV PRN (15:45)
[2023-06-30 16:00] LABS: BASOPHILS % (AUTO) 0.4 % (0.0-2.0); EOSINOPHILS % (AUTO) 0.1 % (1.0-6.0); HEMATOCRIT 42.4 % (41-53); LYMPHOCYTES # (AUTO) 0.4 K/uL (1.0-4.8); LYMPHOCYTES % (AUTO) 4.8 % (22.0-44.0); MEAN CORPUSCULAR HEMOGLOBIN 28.4 pg (26.0-34.0); MEAN CORPUSCULAR VOLUME 86 fL (80-100); MONOCYTES # (AUTO) 0.4 K/uL (0.1-1.0); MONOCYTES % (AUTO) 4.9 % (2.0-9.0); NEUTROPHILS # (AUTO) 8.2 K/uL (1.8-7.7); PLATELET COUNT (AUTO) 320 K/uL (150-450); RED BLOOD CELL COUNT(AUTO) 4.92 MIL/uL (4.50-5.90); RED CELL DISTRIBUTION WIDTH 14.4 % (11.5-14.5); WHITE BLOOD COUNT (AUTO) 9.1 K/uL (4.5-11.0)
[2023-06-30 16:02] LABS: NEUTROPHILS % (AUTO) 89.8 % (40.0-70.0)
[2023-06-30] MEDS ORDERED: HydrALAZINE HCL 20 MG/ML VIAL IVP PRN (16:15)
[2023-06-30] MEDS ORDERED: DEXTROSE 50%-WATER 25 GM/50 ML SYRINGE IVP PRN (16:15)
[2023-06-30] MEDS ORDERED: DEXTROSE 5%-0.45% SODIUM CHL 1,000 ML IV ONE (16:15)
[2023-06-30 16:17] LABS: AMMONIA 17 umol/L (11-32); TROPONIN I-HIGH SENSITIVITY 54 ng/L (<76)
[2023-06-30] MEDS: PROPOFOL 1000 MG/ISO-OSM 100 ML IV PRN ×2 (16:17→19:34)
[2023-06-30] MEDS ORDERED: BISACODYL 10 MG RECTAL RECTAL SUPPOSITORY PR PRN (16:30)
[2023-06-30] MEDS ORDERED: ONDANSETRON HCL 4 MG/2 ML VIAL IVP PRN (16:30)
[2023-06-30 16:34] LABS: ALANINE AMINOTRANSFERASE 23 U/L (12-78); ALBUMIN 3.9 g/dL (3.4-5.0); ALKALINE PHOSPHATASE 100 U/L (46-116); ANION GAP 12 mmol/L (8-16); ASPARTATE AMINOTRANSFERASE 36 U/L (15-37); BILIRUBIN,TOTAL 0.4 mg/dL (0.1-1.0); CALCIUM, TOTAL 9.1 mg/dL (8.8-10.5); CARBON DIOXIDE 22 mmol/L (22-29); CHLORIDE 104 mmol/L (98-107); CREATINE KINASE, TOTAL ONLY 675 U/L (39-308); CREATININE 1.82 mg/dL (0.60-1.30); GLOMERULAR FILTR. RATE CALC 45 mL/min (>60); PHOSPHORUS 2.2 mg/dL (2.5-4.9); POTASSIUM 3.4 mmol/L (3.5-5.1); SODIUM SERUM 138 mmol/L (136-145); TOTAL PROTEIN, SERUM 8.2 g/dL (6.4-8.2); UREA NITROGEN, BLOOD 42 mg/dL (7-18)
[2023-06-30 16:40] LABS: LACTIC ACID 1.1 mmol/L (0.4-2.0)
[2023-06-30 16:42] LABS: ALCOHOL, BLOOD (SERUM) < 3 mg/dL (0-10)
[2023-06-30] MEDS: CefTRIAXone SODIUM 2 GM in DEXTROSE 5%-WATER 50 ML IV SCH (16:42)
[2023-06-30 16:55] LABS: GLUCOSE,RANDOM 21 mg/dL (70-110)
[2023-06-30 16:56] LABS: ALCOHOL, URINE DRUG SCREEN NEGATIVE (NEGATIVE); AMPHET/METH SCREEN,URINE POSITIVE (NEGATIVE); BARBITURATE SCREEN, URINE NEGATIVE (NEGATIVE); BENZODIAZEPINES SCREEN,URINE NEGATIVE (NEGATIVE); CANNABINOID SCREEN,URINE NEGATIVE (NEGATIVE); COCAINE SCREEN,URINE NEGATIVE (NEGATIVE); METHADONE SCREEN, URINE NEGATIVE (NEGATIVE); OPIATE SCREEN,URINE NEGATIVE (NEGATIVE); PHENCYCLIDINE SCREEN,URINE NEGATIVE (NEGATIVE)
[2023-06-30] MEDS: DOXYCYCLINE HYCLATE 100 MG in DEXTROSE 5%-WATER 100 ML IV SCH (17:04)
[2023-06-30 17:09] LABS: APPEARANCE,URINE CLEAR (CLEAR); BILIRUBIN,URINE NEGATIVE (NEGATIVE); COLOR,URINE LIGHT YELLOW (YELLOW); GLUCOSE, URINE (UA) 70-100 mg/dL (NEGATIVE); KETONES,URINE NEGATIVE (NEGATIVE); LEUKOCYTE ESTERASE ,URINE NEGATIVE (NEGATIVE); NITRATE,URINE NEGATIVE (NEGATIVE); OCCULT BLOOD,URINE LARGE (NEGATIVE); PH,URINE 5.5 (5.0-8.0); PH,URINE DRUG SCREEN 5.5 (5.0-8.0); PROTEIN,URINE 100-200,SEE CONFIRM mg/dL (NEGATIVE); SPECIFIC GRAVITIY, URINE 1.018 (1.003-1.030); UROBILINOGEN,URINE <=1.0 mg/dL (<=1.0)
[2023-06-30 17:12] LABS: SULFOSALICYLIC ACID,URINE 4+ (Negative)
[2023-06-30 17:13] LABS: BACTERIA,URINE None Seen /HPF (None Seen); RBC,URINE 0-2 /HPF (0-2); WBC,URINE 0-2 /HPF (0-5)
[2023-06-30 17:21] LABS: ABG BASE EXCESS -6.3 mmol/L (-2.0-3.0); ABG CARBOXYHEMOGLOBIN 0.5 % (0.0-1.5); ABG HCO3 20.6 mmol/L (22.0-26.0); ABG METHEMOGLOBIN 0.3 % (0.0-1.5); ABG OXYGEN CONTENT 21.8 mL/dL (15.0-23.0); ABG OXYGEN SATURATION 99.8 % (95.0-98.0); ABG PCO2 28 mmHg (35-45); ABG PH 7.435 (7.35-7.450); ABG TOTAL HEMOGLOBIN 14.7 G/dL (12.0-18.0); PO2, ARTERIAL BG 503.1 mmHg (79.0-87.0); SOURCE, BLOOD GAS ARTERIAL; TEMPERATURE, FAHRENHEIT, BG 96.8 FAHREN (96.0-98.6)
[2023-06-30 17:22] LABS: ALLEN TEST, BLOOD GAS Positive; O2 DEVICE,BLOOD GAS VENTILATOR (ROOM AIR); SITE, BLOOD GAS LFT RADIAL
[2023-06-30 17:23] LABS: PEEP,BG 5 cm H2O; SPONTANEOUS VT, BG 698 ml; VT, ABG 500 ml
[2023-06-30 18:29] LABS: TROPONIN I-HIGH SENSITIVITY 49 ng/L (<76)
[2023-06-30 19:26] LABS: GLUCOMETER DEV NAME(LOC) ERT.5; GLUCOSE,POINT OF CARE 53 MG/DL (70-110)
[2023-06-30 19:26] LABS: GLUCOMETER DEV NAME(LOC) ERT.5; GLUCOSE,POINT OF CARE 126 MG/DL (70-110)
[2023-06-30] MEDS: ETHYL ALCOHOL 62% ANTISEPTIC NASAL SANITIZER 0.6 ML AMPUL NASAL SCH (21:08)
[2023-06-30 21:32] LABS: GLUCOSE,POINT OF CARE 58 MG/DL (70-110)
[2023-06-30 22:21] LABS: GLUCOMETER DEV NAME(LOC) ICUN.5; GLUCOSE,POINT OF CARE 127 MG/DL (70-110)
[2023-06-30 22:26] LABS: GLUCOSE,POINT OF CARE 98 MG/DL (70-110)
[2023-06-30] MEDS: DOCUSATE SODIUM 100 MG CAPSULE PO SCH (23:33)
[2023-06-30] MEDS: HEPARIN SODIUM,PORCINE 5,000 UNITS/ML VIAL SQ SCH (23:36)
[2023-07-01] VITALS (14 sets, daily range): BP systolic 60–156; BP diastolic 40–79; PULSE 65–84; RESP 10–16; TEMP 99.2–100.8; O2SAT 97–100
[2023-07-01] MEDS: PROPOFOL 1000 MG/ISO-OSM 100 ML IV PRN ×2 (00:10→08:51)
[2023-07-01 00:31] LABS: GLUCOSE,POINT OF CARE 109 MG/DL (70-110)
[2023-07-01] MEDS ORDERED: SODIUM CHLORIDE 0.9% 250 ML IV ONE ×2 (00:45)
[2023-07-01] MEDS: DEXMEDETOMIDINE HCL 400 MCG in SODIUM CHLORIDE 0.9% 96 ML IV PRN ×2 (01:44→12:10)
[2023-07-01] MEDS: ACETAMINOPHEN 325 MG TABLET PO PRN ×3 (02:27→21:44)
[2023-07-01] MEDS ORDERED: PHENYLEPHRINE 200 MG/D5%-WATER 250 ML IV PRN (04:15)
[2023-07-01] MEDS: DOXYCYCLINE HYCLATE 100 MG in DEXTROSE 5%-WATER 100 ML IV SCH ×2 (05:50→17:53)
[2023-07-01 05:59] LABS: BASOPHILS % (AUTO) 0.4 % (0.0-2.0); EOSINOPHILS % (AUTO) 0.1 % (1.0-6.0); HEMATOCRIT 36.6 % (41-53); HEMOGLOBIN 12.2 g/dL (13.5-17.5); LYMPHOCYTES # (AUTO) 0.9 K/uL (1.0-4.8); LYMPHOCYTES % (AUTO) 11.6 % (22.0-44.0); MEAN CORPUSCULAR HEMOGLOBIN 28.4 pg (26.0-34.0); MEAN CORPUSCULAR HGB CONC 33.3 G/dL (31.0-37.0); MEAN CORPUSCULAR VOLUME 85 fL (80-100); MONOCYTES # (AUTO) 0.8 K/uL (0.1-1.0); MONOCYTES % (AUTO) 10.2 % (2.0-9.0); NEUTROPHILS # (AUTO) 6.2 K/uL (1.8-7.7); NEUTROPHILS % (AUTO) 77.7 % (40.0-70.0); PLATELET COUNT (AUTO) 306 K/uL (150-450); RED BLOOD CELL COUNT(AUTO) 4.29 MIL/uL (4.50-5.90); RED CELL DISTRIBUTION WIDTH 14.4 % (11.5-14.5)
[2023-07-01 06:07] LABS: CALCIUM, TOTAL 8.7 mg/dL (8.8-10.5); CREATININE 2.57 mg/dL (0.60-1.30); POTASSIUM 3.7 mmol/L (3.5-5.1)
[2023-07-01 06:12] LABS: GLUCOSE,POINT OF CARE 125 MG/DL (70-110)
[2023-07-01 06:12] LABS: GLUCOMETER DEV NAME(LOC) ICUN.5; GLUCOSE,POINT OF CARE 93 MG/DL (70-110)
[2023-07-01] MEDS: HEPARIN SODIUM,PORCINE 5,000 UNITS/ML VIAL SQ SCH ×3 (08:49→23:56)
[2023-07-01] MEDS: PANTOPRAZOLE SODIUM 40 MG/VIAL IVP SCH (08:50)
[2023-07-01] MEDS: ETHYL ALCOHOL 62% ANTISEPTIC NASAL SANITIZER 0.6 ML AMPUL NASAL SCH ×2 (08:50→21:41)
[2023-07-01] MEDS: DOCUSATE SODIUM 100 MG CAPSULE PO SCH (08:50)
[2023-07-01] MEDS ORDERED: DEXTROSE 5%-0.45% SODIUM CHL 1,000 ML IV SCH (09:00)
[2023-07-01 12:27] LABS: GLUCOSE,POINT OF CARE 127 MG/DL (70-110)
[2023-07-01] MEDS: INSULIN LISPRO 100 UNITS/ML SQ PRN (12:35)
[2023-07-01 12:46] LABS: GLUCOMETER DEV NAME(LOC) ICUN.5; GLUCOSE,POINT OF CARE 169 MG/DL (70-110)
[2023-07-01] MEDS: CefTRIAXone SODIUM 2 GM in DEXTROSE 5%-WATER 50 ML IV SCH (16:12)
[2023-07-01 19:37] LABS: GLUCOSE,POINT OF CARE 140 MG/DL (70-110)
[2023-07-01] MEDS: DOCUSATE SODIUM 100 MG/10 ML LIQUID UDCUP NG SCH (21:42)
[2023-07-02] VITALS (14 sets, daily range): BP systolic 82–159; BP diastolic 56–90; PULSE 58–77; RESP 10–18; TEMP 98.3–99.5; O2SAT 97–100
[2023-07-02 01:16] LABS: GLUCOMETER DEV NAME(LOC) ICUN.5; GLUCOSE,POINT OF CARE 124 MG/DL (70-110)
[2023-07-02] MEDS: DOXYCYCLINE HYCLATE 100 MG in DEXTROSE 5%-WATER 100 ML IV SCH ×2 (04:31→17:22)
[2023-07-02 06:10] LABS: BASOPHILS % (AUTO) 0.8 % (0.0-2.0); EOSINOPHILS % (AUTO) 0.4 % (1.0-6.0); HEMATOCRIT 33.9 % (41-53); HEMOGLOBIN 11.2 g/dL (13.5-17.5); LYMPHOCYTES # (AUTO) 1.7 K/uL (1.0-4.8); LYMPHOCYTES % (AUTO) 28.5 % (22.0-44.0); MEAN CORPUSCULAR HEMOGLOBIN 28.3 pg (26.0-34.0); MEAN CORPUSCULAR HGB CONC 33.1 G/dL (31.0-37.0); MEAN CORPUSCULAR VOLUME 86 fL (80-100); MONOCYTES # (AUTO) 0.7 K/uL (0.1-1.0); MONOCYTES % (AUTO) 11.7 % (2.0-9.0); NEUTROPHILS # (AUTO) 3.6 K/uL (1.8-7.7); NEUTROPHILS % (AUTO) 58.6 % (40.0-70.0); PLATELET COUNT (AUTO) 234 K/uL (150-450); RED BLOOD CELL COUNT(AUTO) 3.96 MIL/uL (4.50-5.90); RED CELL DISTRIBUTION WIDTH 14.7 % (11.5-14.5); WHITE BLOOD COUNT (AUTO) 6.1 K/uL (4.5-11.0)
[2023-07-02 06:22] LABS: CALCIUM, TOTAL 8.6 mg/dL (8.8-10.5); CREATININE 2.8 mg/dL (0.60-1.30); PHOSPHORUS 3.8 mg/dL (2.5-4.9); POTASSIUM 3.7 mmol/L (3.5-5.1)
[2023-07-02 06:32] LABS: HEMOGLOBIN A1C 6.6 % (3.8-5.6)
[2023-07-02 07:06] LABS: GLUCOMETER DEV NAME(LOC) ICUN.5; GLUCOSE,POINT OF CARE 109 MG/DL (70-110)
[2023-07-02] MEDS: ETHYL ALCOHOL 62% ANTISEPTIC NASAL SANITIZER 0.6 ML AMPUL NASAL SCH ×2 (08:12→21:38)
[2023-07-02] MEDS: DOCUSATE SODIUM 100 MG/10 ML LIQUID UDCUP NG SCH ×2 (08:12→21:38)
[2023-07-02] MEDS: HEPARIN SODIUM,PORCINE 5,000 UNITS/ML VIAL SQ SCH ×3 (08:12→23:37)
[2023-07-02] MEDS: PANTOPRAZOLE SODIUM 40 MG/VIAL IVP SCH (08:12)
[2023-07-02] MEDS: MIDODRINE HCL 5 MG TABLET PO SCH ×2 (09:34→21:38)
[2023-07-02 12:58] LABS: ABG BASE EXCESS -5.6 mmol/L (-2.0-3.0); ABG CARBOXYHEMOGLOBIN 0.4 % (0.0-1.5); ABG HCO3 20.7 mmol/L (22.0-26.0); ABG METHEMOGLOBIN 0.3 % (0.0-1.5); ABG OXYGEN CONTENT 17.1 mL/dL (15.0-23.0); ABG OXYHEMOGLOBIN 98.3 % (94.0-100.0); ABG PCO2 31 mmHg (35-45); ABG PH 7.411 (7.35-7.450); ABG TOTAL HEMOGLOBIN 12.2 G/dL (12.0-18.0); PO2, ARTERIAL BG 151.2 mmHg (79.0-87.0); SOURCE, BLOOD GAS ARTERIAL; TEMPERATURE, FAHRENHEIT, BG 98.7 FAHREN (96.0-98.6)
[2023-07-02 12:59] LABS: ABG A-A DIFF O2 26.6 mmHg (10-20.0); ALLEN TEST, BLOOD GAS Positive; O2 DEVICE,BLOOD GAS VENTILATOR (ROOM AIR); PEEP,BG 0 cm H2O; PRESSURE SUPPORT, BG 8 cm H2O; SITE, BLOOD GAS LFT RADIAL; VENT MODE, BG Press. Support Vent. (ROOM AIR)
[2023-07-02 13:00] LABS: SPONTANEOUS VT, BG 1280 ml
[2023-07-02 15:56] LABS: GLUCOSE,POINT OF CARE 113 MG/DL (70-110)
[2023-07-02] MEDS: CefTRIAXone SODIUM 2 GM in DEXTROSE 5%-WATER 50 ML IV SCH (16:36)
[2023-07-02 18:17] LABS: GLUCOSE,POINT OF CARE 114 MG/DL (70-110)
[2023-07-02] MEDS: DEXMEDETOMIDINE HCL 400 MCG in SODIUM CHLORIDE 0.9% 96 ML IV PRN (19:37)
[2023-07-03] VITALS (10 sets, daily range): BP systolic 108–177; BP diastolic 64–99; PULSE 60–83; RESP 12–24; TEMP 97.1–99; O2SAT 99–100
[2023-07-03 00:17] LABS: GLUCOSE,POINT OF CARE 136 MG/DL (70-110)
[2023-07-03] MEDS: DOXYCYCLINE HYCLATE 100 MG in DEXTROSE 5%-WATER 100 ML IV SCH ×2 (04:30→16:52)
[2023-07-03] MEDS: INSULIN LISPRO 100 UNITS/ML SQ PRN (06:09)
[2023-07-03 06:22] LABS: GLUCOMETER DEV NAME(LOC) ICUN.5; GLUCOSE,POINT OF CARE 153 MG/DL (70-110)
[2023-07-03 06:35] LABS: CALCIUM, TOTAL 8.2 mg/dL (8.8-10.5); CREATININE 1.98 mg/dL (0.60-1.30)
[2023-07-03 06:40] LABS: BASOPHILS % (AUTO) 0.9 % (0.0-2.0); EOSINOPHILS % (AUTO) 0.6 % (1.0-6.0); HEMATOCRIT 31.8 % (41-53); HEMOGLOBIN 10.7 g/dL (13.5-17.5); LYMPHOCYTES # (AUTO) 1.3 K/uL (1.0-4.8); LYMPHOCYTES % (AUTO) 30.3 % (22.0-44.0); MEAN CORPUSCULAR HEMOGLOBIN 28.7 pg (26.0-34.0); MEAN CORPUSCULAR HGB CONC 33.6 G/dL (31.0-37.0); MEAN CORPUSCULAR VOLUME 85 fL (80-100); MONOCYTES # (AUTO) 0.4 K/uL (0.1-1.0); MONOCYTES % (AUTO) 9.1 % (2.0-9.0); NEUTROPHILS # (AUTO) 2.6 K/uL (1.8-7.7); NEUTROPHILS % (AUTO) 59.1 % (40.0-70.0); PLATELET COUNT (AUTO) 199 K/uL (150-450); RED BLOOD CELL COUNT(AUTO) 3.73 MIL/uL (4.50-5.90); RED CELL DISTRIBUTION WIDTH 14.5 % (11.5-14.5); WHITE BLOOD COUNT (AUTO) 4.4 K/uL (4.5-11.0)
[2023-07-03] MEDS: HEPARIN SODIUM,PORCINE 5,000 UNITS/ML VIAL SQ SCH ×2 (08:49→16:06)
[2023-07-03] MEDS: DOCUSATE SODIUM 100 MG/10 ML LIQUID UDCUP NG SCH ×2 (08:51→21:01)
[2023-07-03] MEDS: MIDODRINE HCL 5 MG TABLET PO SCH ×2 (08:51→21:01)
[2023-07-03] MEDS: PANTOPRAZOLE SODIUM 40 MG/VIAL IVP SCH (08:51)
[2023-07-03] MEDS: ETHYL ALCOHOL 62% ANTISEPTIC NASAL SANITIZER 0.6 ML AMPUL NASAL SCH ×2 (08:51→21:01)
[2023-07-03 09:40] LABS: ABG BASE EXCESS -3.5 mmol/L (-2.0-3.0); ABG CARBOXYHEMOGLOBIN 0.3 % (0.0-1.5); ABG HCO3 22.5 mmol/L (22.0-26.0); ABG METHEMOGLOBIN 0.1 % (0.0-1.5); ABG OXYGEN CONTENT 17.7 mL/dL (15.0-23.0); ABG OXYGEN SATURATION 99.2 % (95.0-98.0); ABG OXYHEMOGLOBIN 98.8 % (94.0-100.0); ABG PCO2 30 mmHg (35-45); ABG PH 7.457 (7.35-7.450); ABG TOTAL HEMOGLOBIN 12.5 G/dL (12.0-18.0); PO2, ARTERIAL BG 180.7 mmHg (79.0-87.0); SOURCE, BLOOD GAS ARTERIAL; TEMPERATURE, FAHRENHEIT, BG 98.8 FAHREN (96.0-98.6)
[2023-07-03 09:41] LABS: ALLEN TEST, BLOOD GAS Positive; CPAP, BG 0 cm H2O; O2 DEVICE,BLOOD GAS VENTILATOR (ROOM AIR); PRESSURE SUPPORT, BG 8 cm H2O; SITE, BLOOD GAS LFT RADIAL; VENT MODE, BG CPAP (ROOM AIR)
[2023-07-03 09:42] LABS: SPONTANEOUS VT, BG 582 ml
[2023-07-03 12:45] LABS: GLUCOMETER DEV NAME(LOC) ICUN.5; GLUCOSE,POINT OF CARE 89 MG/DL (70-110)
[2023-07-03] MEDS: CefTRIAXone SODIUM 2 GM in DEXTROSE 5%-WATER 50 ML IV SCH (16:05)
[2023-07-03 17:36] LABS: GLUCOMETER DEV NAME(LOC) ICUN.5; GLUCOSE,POINT OF CARE 133 MG/DL (70-110)
[2023-07-04] VITALS: BP 156/64; PULSE 77; RESP 18; TEMP 98.8
[2023-07-04] MEDS: HEPARIN SODIUM,PORCINE 5,000 UNITS/ML VIAL SQ SCH ×4 (00:13→23:58)
[2023-07-04 00:35] LABS: GLUCOMETER DEV NAME(LOC) ICUN.5; GLUCOSE,POINT OF CARE 132 MG/DL (70-110)
[2023-07-04 04:00] VITALS: BP 138/73; PULSE 71; RESP 16
[2023-07-04] MEDS: DOXYCYCLINE HYCLATE 100 MG in DEXTROSE 5%-WATER 100 ML IV SCH ×2 (05:05→17:25)
[2023-07-04 05:39] LABS: BASOPHILS % (AUTO) 0.7 % (0.0-2.0); EOSINOPHILS % (AUTO) 1.1 % (1.0-6.0); HEMATOCRIT 33.8 % (41-53); HEMOGLOBIN 11.4 g/dL (13.5-17.5); LYMPHOCYTES # (AUTO) 1.7 K/uL (1.0-4.8); MEAN CORPUSCULAR HEMOGLOBIN 28.7 pg (26.0-34.0); MEAN CORPUSCULAR HGB CONC 33.7 G/dL (31.0-37.0); MEAN CORPUSCULAR VOLUME 85 fL (80-100); MONOCYTES # (AUTO) 0.6 K/uL (0.1-1.0); MONOCYTES % (AUTO) 9.2 % (2.0-9.0); NEUTROPHILS # (AUTO) 3.7 K/uL (1.8-7.7); PLATELET COUNT (AUTO) 225 K/uL (150-450); RED BLOOD CELL COUNT(AUTO) 3.98 MIL/uL (4.50-5.90); RED CELL DISTRIBUTION WIDTH 14.4 % (11.5-14.5); WHITE BLOOD COUNT (AUTO) 6.1 K/uL (4.5-11.0)
[2023-07-04 05:40] LABS: CALCIUM, TOTAL 8.5 mg/dL (8.8-10.5); CREATININE 1.64 mg/dL (0.60-1.30); POTASSIUM 3.8 mmol/L (3.5-5.1)
[2023-07-04 05:51] LABS: GLUCOSE,POINT OF CARE 105 MG/DL (70-110)
[2023-07-04 08:00] VITALS: BP 123/95; PULSE 79; RESP 23; TEMP 98.8
[2023-07-04] MEDS: DOCUSATE SODIUM 100 MG/10 ML LIQUID UDCUP NG SCH ×2 (08:22→21:00)
[2023-07-04] MEDS: ACETAMINOPHEN 325 MG TABLET PO PRN (08:23)
[2023-07-04] MEDS: MIDODRINE HCL 5 MG TABLET PO SCH (08:23)
[2023-07-04] MEDS: PANTOPRAZOLE SODIUM 40 MG/VIAL IVP SCH (08:24)
[2023-07-04] MEDS: ETHYL ALCOHOL 62% ANTISEPTIC NASAL SANITIZER 0.6 ML AMPUL NASAL SCH ×2 (08:25→21:12)
[2023-07-04 12:00] VITALS: BP 159/87; PULSE 84; RESP 10; TEMP 97.6
[2023-07-04] MEDS: CefTRIAXone SODIUM 2 GM in DEXTROSE 5%-WATER 50 ML IV SCH (15:57)
[2023-07-04 16:00] VITALS: BP 140/62; PULSE 76; RESP 18; TEMP 97.2
[2023-07-04] MEDS ORDERED: SODIUM CHLORIDE 0.9% 250 ML IV ONE (16:01)
[2023-07-04 19:27] VITALS: BP 163/79; PULSE 83; RESP 18; TEMP 98.9
[2023-07-04] MEDS: INSULIN LISPRO 100 UNITS/ML SQ PRN (21:13)
[2023-07-05] VITALS (7 sets, daily range): BP systolic 142–161; BP diastolic 73–89; PULSE 70–76; RESP 18–19; TEMP 98.1–99
[2023-07-05] MEDS ORDERED: SODIUM CHLORIDE 0.9% 250 ML IV ONE (04:47)
[2023-07-05] MEDS: DOXYCYCLINE HYCLATE 100 MG in DEXTROSE 5%-WATER 100 ML IV SCH ×2 (04:55→17:00)
[2023-07-05 06:41] LABS: GLUCOMETER DEV NAME(LOC) 5S.1B; GLUCOSE,POINT OF CARE 164 MG/DL (70-110)
[2023-07-05 07:00] LABS: BASOPHILS % (AUTO) 0.6 % (0.0-2.0); EOSINOPHILS % (AUTO) 0.7 % (1.0-6.0); HEMATOCRIT 32.1 % (41-53); HEMOGLOBIN 10.9 g/dL (13.5-17.5); LYMPHOCYTES # (AUTO) 1.2 K/uL (1.0-4.8); LYMPHOCYTES % (AUTO) 24.5 % (22.0-44.0); MEAN CORPUSCULAR HEMOGLOBIN 28.7 pg (26.0-34.0); MEAN CORPUSCULAR HGB CONC 33.9 G/dL (31.0-37.0); MEAN CORPUSCULAR VOLUME 85 fL (80-100); MONOCYTES # (AUTO) 0.4 K/uL (0.1-1.0); MONOCYTES % (AUTO) 8.4 % (2.0-9.0); NEUTROPHILS # (AUTO) 3.3 K/uL (1.8-7.7); NEUTROPHILS % (AUTO) 65.8 % (40.0-70.0); PLATELET COUNT (AUTO) 202 K/uL (150-450); RED BLOOD CELL COUNT(AUTO) 3.78 MIL/uL (4.50-5.90); RED CELL DISTRIBUTION WIDTH 14.2 % (11.5-14.5)
[2023-07-05 07:31] LABS: CALCIUM, TOTAL 8.2 mg/dL (8.8-10.5); CREATININE 1.42 mg/dL (0.60-1.30); POTASSIUM 3.7 mmol/L (3.5-5.1)
[2023-07-05] MEDS: PANTOPRAZOLE SODIUM 40 MG/VIAL IVP SCH (10:28)
[2023-07-05] MEDS: DOCUSATE SODIUM 100 MG/10 ML LIQUID UDCUP NG SCH ×2 (10:28→21:00)
[2023-07-05] MEDS: ETHYL ALCOHOL 62% ANTISEPTIC NASAL SANITIZER 0.6 ML AMPUL NASAL SCH ×2 (10:29→21:00)
[2023-07-05] MEDS: HEPARIN SODIUM,PORCINE 5,000 UNITS/ML VIAL SQ SCH ×2 (10:29→15:52)
[2023-07-05] MEDS: INSULIN LISPRO 100 UNITS/ML SQ PRN ×2 (12:31→22:01)
[2023-07-05] MEDS: VALPROIC ACID 250 MG/5 ML SOLUTION UDCUP PO SCH ×2 (15:52→21:00)
[2023-07-05] MEDS: CefTRIAXone SODIUM 2 GM in DEXTROSE 5%-WATER 50 ML IV SCH (15:56)
[2023-07-05] MEDS: OLANZapine 10 MG RAPDIS TABLET PO SCH (21:00)
[2023-07-06 04:36] VITALS: BP 137/82; PULSE 69; RESP 18; TEMP 98.3
[2023-07-06] MEDS: DOXYCYCLINE HYCLATE 100 MG in DEXTROSE 5%-WATER 100 ML IV SCH ×2 (05:00→17:00)
[2023-07-06] MEDS: INSULIN LISPRO 100 UNITS/ML SQ PRN (06:21)
[2023-07-06 07:30] VITALS: BP 146/78; PULSE 72; RESP 18; TEMP 98.9
[2023-07-06] MEDS: HEPARIN SODIUM,PORCINE 5,000 UNITS/ML VIAL SQ SCH ×3 (08:00→16:00)
[2023-07-06] MEDS: PANTOPRAZOLE SODIUM 40 MG/VIAL IVP SCH (09:00)
[2023-07-06] MEDS: ETHYL ALCOHOL 62% ANTISEPTIC NASAL SANITIZER 0.6 ML AMPUL NASAL SCH ×2 (09:00→21:00)
[2023-07-06] MEDS: DOCUSATE SODIUM 100 MG/10 ML LIQUID UDCUP NG SCH ×2 (09:00→21:00)
[2023-07-06] MEDS: VALPROIC ACID 250 MG/5 ML SOLUTION UDCUP PO SCH ×2 (09:00→21:00)
[2023-07-06 10:41] VITALS: BP 151/84; PULSE 74; RESP 18; TEMP 97.8
[2023-07-06 15:41] VITALS: BP 145/82; PULSE 76; RESP 18; TEMP 97.9
[2023-07-06] MEDS: CefTRIAXone SODIUM 2 GM in DEXTROSE 5%-WATER 50 ML IV SCH (16:00)
[2023-07-06] MEDS: OLANZapine 10 MG RAPDIS TABLET PO SCH (21:00)
[2023-07-06 23:41] LABS: GLUCOMETER DEV NAME(LOC) 5S.1B; GLUCOSE,POINT OF CARE 218 MG/DL (70-110)
[2023-07-07] MEDS: DOXYCYCLINE HYCLATE 100 MG in DEXTROSE 5%-WATER 100 ML IV SCH (05:00)
[2023-07-07 05:53] VITALS: BP 152/81; PULSE 70; RESP 20; TEMP 98.3
[2023-07-07 08:05] VITALS: BP 136/72; PULSE 68; RESP 20; TEMP 98.4
[2023-07-07] MEDS: DOCUSATE SODIUM 100 MG/10 ML LIQUID UDCUP NG SCH (08:09)
[2023-07-07] MEDS: VALPROIC ACID 250 MG/5 ML SOLUTION UDCUP PO SCH (08:10)
[2023-07-07] MEDS: HEPARIN SODIUM,PORCINE 5,000 UNITS/ML VIAL SQ SCH ×2 (08:11)
[2023-07-07] MEDS: ETHYL ALCOHOL 62% ANTISEPTIC NASAL SANITIZER 0.6 ML AMPUL NASAL SCH (08:12)
[2023-07-07] MEDS ORDERED: LEVOFLOXACIN 500 MG TABLET PO SCH (09:00)
[2023-07-07 12:32] LABS: GLUCOMETER DEV NAME(LOC) 5S.2C; GLUCOSE,POINT OF CARE 143 MG/DL (70-110)
[2023-07-07 12:40] LABS: GLUCOMETER DEV NAME(LOC) 6N.2B; GLUCOSE,POINT OF CARE 134 MG/DL (70-110)
[2023-07-07] MEDS ORDERED: VALP250C48 PO (14:38)
[2023-07-07] MEDS ORDERED: OLAN10TA26 PO (14:40)
[2023-07-07 15:25] VITALS: BP 145/78; PULSE 78; RESP 20; TEMP 98.6
== END 2023-07-07 18:43 | disposition home or self-care (01) | DRG 52 ==
LOC: EMS 15:06 → UNDOADMIN 16:19 → ICU 16:19 → ICUN 16:19 → 5S 07-04 19:15 → 6S 07-06 21:00
PROVIDERS: ADMIT Internal Medicine; ATTEND Internal Medicine
DX: G93.40 Encephalopathy, unspecified (principal); J96.00 Acute respiratory failure, unspecified whether with hypoxia or hypercapnia; J69.0 Pneumonitis due to inhalation of food and vomit; N17.9 Acute kidney failure, unspecified; F25.0 Schizoaffective disorder, bipolar type; E87.1 Hypo-osmolality and hyponatremia; F25.9 Schizoaffective disorder, unspecified; I25.10 Atherosclerotic heart disease of native coronary artery without angina pectoris; E78.00 Pure hypercholesterolemia, unspecified; I10 Essential (primary) hypertension; Z20.822 Contact with and (suspected) exposure to COVID-19; E11.65 Type 2 diabetes mellitus with hyperglycemia; I16.0 Hypertensive urgency; F15.10 Other stimulant abuse, uncomplicated; M62.82 Rhabdomyolysis; Z91.199 Patient's noncompliance with other medical treatment and regimen due to unspecified reason
CPT/HCPCS: 36600; 51702; 70450; 71045; 71250; 72125; 80048; 80053; 80307; 81001; 81002; 82140; 82550; 82805; 82962; 83036; 83605; 83735; 84100; 84484; 85025; 87040; 87070; 87081; 92610; 93005; 93306; 94002; 94003; 97110; 99291; C9113; G0480; J0696; J1644; J2370; J2704; J3490; J7050; J7060; Q9967; 36415-L1; 36415-TC

== ENCOUNTER 2023-12-25 14:53 | Inpatient (IN) | payer MEDICAID, OTHER ==
[~2023-12-25 14:53] MED LIST changes: -ATEN-73 PO; -DIVA500T53 PO; -FLUO-177 PO; -METF-1211 PO; -NALT50TA PO; -OLAN10TA22 PO; +OLAN10TA26 PO; -OMEG-135 PO; +VALP250C48 PO
[2023-12-25] MEDS ORDERED: INSLAN SQ (17:46)
[2023-12-25] MEDS ORDERED: INSU100V SQ (17:48)
[2023-12-26] MEDS: ZOLPIDEM TARTRATE 10 MG TABLET PO PRN (01:08)
[2023-12-26] MEDS: LORazepam 2 MG TABLET PO PRN (01:08)
[2023-12-26] MEDS: HALOPERIDOL 5 MG TABLET PO PRN (01:08)
[2023-12-26 05:49] VITALS: RESP 18
[2023-12-26 11:07] VITALS: RESP 18
[2023-12-26] MEDS ORDERED: IBUPROFEN 400 MG TABLET PO PRN (15:45)
[2023-12-26] MEDS ORDERED: ONDANSETRON HCL 4 MG TABLET PO PRN (15:45)
[2023-12-26] MEDS ORDERED: DEXTROSE 50%-WATER 25 GM/50 ML SYRINGE IVP PRN (15:45)
[2023-12-26] MEDS ORDERED: ALBUTEROL SULFATE HFA 90 MCG/PUFF 8 GM INHALER IH PRN (15:45)
[2023-12-26] MEDS ORDERED: DOCUSATE SODIUM 100 MG CAPSULE PO PRN (15:45)
[2023-12-26] MEDS ORDERED: LOPERAMIDE HCL 2 MG CAPSULE PO PRN (15:45)
[2023-12-26] MEDS ORDERED: ACETAMINOPHEN 325 MG TABLET PO PRN (15:45)
[2023-12-26] MEDS ORDERED: PETROLATUM,WHITE 28 GM JELLY TP PRN (15:45)
[2023-12-26] MEDS ORDERED: NICOTINE 14 MG/24 HOUR PATCH TD PRN (15:45)
[2023-12-26] MEDS ORDERED: MAGNESIUM HYDROXIDE SUSPENSION 30 ML UDCUP PO PRN (15:45)
[2023-12-26] MEDS ORDERED: GuaiFENesin/D-METHORPHAN [SUGAR-FREE] 200-20MG/10 ML SYRUP UDCUP PO PRN (15:45)
[2023-12-26] MEDS ORDERED: MAG HYDROX/ALUMINUM HYD/SIMETH ES 30 ML SUSPENSION UDCUP PO PRN (15:45)
[2023-12-26] MEDS: OLANZapine 10 MG TABLET PO SCH (21:00)
[2023-12-26] MEDS: VALPROIC ACID 250 MG CAPSULE PO SCH (21:00)
[2023-12-26] MEDS: INSULIN GLARGINE,HUM.REC.ANLOG 100 UNITS/ML SQ SCH (21:00)
[2023-12-27 07:54] LABS: EOSINOPHILS % (AUTO) 1.1 % (1.0-6.0); HEMATOCRIT 37.8 % (41-53); HEMOGLOBIN 12.5 g/dL (13.5-17.5); LYMPHOCYTES # (AUTO) 2.1 K/uL (1.0-4.8); MEAN CORPUSCULAR HEMOGLOBIN 29.3 pg (26.0-34.0); MEAN CORPUSCULAR HGB CONC 32.9 G/dL (31.0-37.0); MEAN CORPUSCULAR VOLUME 89 fL (80-100); MONOCYTES # (AUTO) 0.4 K/uL (0.1-1.0); MONOCYTES % (AUTO) 7.3 % (2.0-9.0); NEUTROPHILS # (AUTO) 3.1 K/uL (1.8-7.7); NEUTROPHILS % (AUTO) 54.6 % (40.0-70.0); PLATELET COUNT (AUTO) 299 K/uL (150-450); RED BLOOD CELL COUNT(AUTO) 4.26 MIL/uL (4.50-5.90); RED CELL DISTRIBUTION WIDTH 13.4 % (11.5-14.5); WHITE BLOOD COUNT (AUTO) 5.7 K/uL (4.5-11.0)
[2023-12-27 07:58] LABS: HEMOGLOBIN A1C 8.4 % (3.8-5.6)
[2023-12-27 08:06] LABS: ALBUMIN 3.5 g/dL (3.4-5.0); BILIRUBIN,TOTAL 0.1 mg/dL (0.1-1.0); CALCIUM, TOTAL 9.6 mg/dL (8.8-10.5); CREATININE 1.76 mg/dL (0.60-1.30); POTASSIUM 5.7 mmol/L (3.5-5.1); THYROID STIMULATING HORMONE 2.4 uIU/mL (0.36-3.74); TOTAL PROTEIN, SERUM 8.3 g/dL (6.4-8.2)
[2023-12-27 08:22] LABS: CHOL/HDL RATIO 4.9 (4.2-7.3)
[2023-12-27 08:42] VITALS: BP 155/85; PULSE 80; RESP 17; TEMP 97.2
[2023-12-27 08:45] VITALS: BP 155/85; PULSE 80; RESP 17; TEMP 97.2; O2SAT 98
[2023-12-27] MEDS: SODIUM POLYSTYRENE SULFONATE 15 GM/60 ML SUSPENSION BOTTLE PO ONE (11:02)
[2023-12-27 12:45] LABS: GLUCOMETER DEV NAME(LOC) 3E.C; GLUCOSE,POINT OF CARE 275 MG/DL (70-110)
[2023-12-27] MEDS: INSULIN LISPRO 100 UNITS/ML SQ PRN (12:48)
[2023-12-27 17:01] LABS: GLUCOMETER DEV NAME(LOC) 3E.C; GLUCOSE,POINT OF CARE 216 MG/DL (70-110)
[2023-12-27 20:21] LABS: GLUCOMETER DEV NAME(LOC) 3E.C; GLUCOSE,POINT OF CARE 290 MG/DL (70-110)
[2023-12-27 21:01] VITALS: RESP 18; TEMP 97.5
[2023-12-27] MEDS: INSULIN GLARGINE,HUM.REC.ANLOG 100 UNITS/ML SQ SCH (21:24)
[2023-12-28 06:46] LABS: GLUCOMETER DEV NAME(LOC) 3E.C; GLUCOSE,POINT OF CARE 321 MG/DL (70-110)
[2023-12-28 08:35] VITALS: BP 166/80; PULSE 95; RESP 17; TEMP 98.1; O2SAT 98
[2023-12-28 09:35] VITALS: BP 148/86; RESP 18
[2023-12-28 11:01] LABS: GLUCOMETER DEV NAME(LOC) 3E.C; GLUCOSE,POINT OF CARE 254 MG/DL (70-110)
[2023-12-28] MEDS: AmLODIPine BESYLATE 5 MG TABLET PO SCH (15:15)
[2023-12-28 16:11] LABS: GLUCOMETER DEV NAME(LOC) 3E.C; GLUCOSE,POINT OF CARE 396 MG/DL (70-110)
[2023-12-28 20:54] VITALS: RESP 18
[2023-12-29 06:10] LABS: GLUCOMETER DEV NAME(LOC) 3E.C; GLUCOSE,POINT OF CARE 385 MG/DL (70-110)
[2023-12-29 07:24] LABS: CALCIUM, TOTAL 8.8 mg/dL (8.8-10.5); CREATININE 1.76 mg/dL (0.60-1.30); POTASSIUM 4.5 mmol/L (3.5-5.1)
[2023-12-29] MEDS: CloNIDine HCL 0.1 MG TABLET PO PRN (08:03)
[2023-12-29 08:28] VITALS: BP 191/95; PULSE 95; RESP 19; TEMP 98; O2SAT 99
[2023-12-29 11:15] LABS: GLUCOMETER DEV NAME(LOC) 3E.C; GLUCOSE,POINT OF CARE 268 MG/DL (70-110)
[2023-12-29 17:10] LABS: GLUCOMETER DEV NAME(LOC) 3E.C; GLUCOSE,POINT OF CARE 391 MG/DL (70-110)
[2023-12-29 20:40] VITALS: BP 168/85; PULSE 107; RESP 18; TEMP 98.2; O2SAT 98
[2023-12-29 21:00] LABS: GLUCOMETER DEV NAME(LOC) 3E.C; GLUCOSE,POINT OF CARE 288 MG/DL (70-110)
[2023-12-29] MEDS: INSULIN GLARGINE,HUM.REC.ANLOG 100 UNITS/ML SQ SCH (21:23)
[2023-12-30 05:45] LABS: GLUCOMETER DEV NAME(LOC) 3E.C; GLUCOSE,POINT OF CARE 361 MG/DL (70-110)
[2023-12-30 08:32] VITALS: BP 164/91; PULSE 99; RESP 18; TEMP 97; O2SAT 98
[2023-12-30] MEDS: INSULIN LISPRO 100 UNITS/ML SQ ONE ×2 (11:18→18:31)
[2023-12-30 11:25] LABS: GLUCOMETER DEV NAME(LOC) 3E.C; GLUCOSE,POINT OF CARE 395 MG/DL (70-110)
[2023-12-30 17:26] LABS: GLUCOMETER DEV NAME(LOC) 3E.C; GLUCOSE,POINT OF CARE 423 MG/DL (70-110)
[2023-12-30 20:40] VITALS: BP 149/88; PULSE 101; RESP 18; TEMP 97.5; O2SAT 97
[2023-12-30] MEDS: INSULIN LISPRO 100 UNITS/ML SQ PRN (21:15)
[2023-12-30 21:21] LABS: GLUCOMETER DEV NAME(LOC) 3E.C; GLUCOSE,POINT OF CARE 246 MG/DL (70-110)
[2023-12-31 05:36] LABS: GLUCOMETER DEV NAME(LOC) 3E.C; GLUCOSE,POINT OF CARE 355 MG/DL (70-110)
[2023-12-31 08:00] VITALS: BP 128/68; PULSE 90; RESP 17; TEMP 98.3; O2SAT 97
[2023-12-31] MEDS: FUROSEMIDE 20 MG TABLET PO SCH (08:21)
[2023-12-31 11:15] LABS: GLUCOMETER DEV NAME(LOC) 3E.C; GLUCOSE,POINT OF CARE 269 MG/DL (70-110)
[2023-12-31 11:25] VITALS: BP 126/68; PULSE 90; RESP 18; TEMP 98.3; O2SAT 97
[2023-12-31] MEDS: MUPIROCIN CALCIUM 2% 15 GM CREAM TP SCH (13:09)
[2023-12-31 16:40] LABS: GLUCOMETER DEV NAME(LOC) 3E.C; GLUCOSE,POINT OF CARE 444 MG/DL (70-110)
[2023-12-31] MEDS: INSULIN LISPRO 100 UNITS/ML SQ ONE ×2 (17:27→18:29)
[2023-12-31 17:30] LABS: GLUCOMETER DEV NAME(LOC) 3E.C; GLUCOSE,POINT OF CARE 460 MG/DL (70-110)
[2023-12-31 18:16] LABS: GLUCOMETER DEV NAME(LOC) 3EX.2; GLUCOSE,POINT OF CARE 384 MG/DL (70-110)
[2023-12-31 19:31] LABS: GLUCOMETER DEV NAME(LOC) 3EX.2; GLUCOSE,POINT OF CARE 307 MG/DL (70-110)
[2023-12-31] MEDS: DOXYCYCLINE HYCLATE 100 MG TABLET PO SCH (20:29)
[2023-12-31 20:40] LABS: GLUCOMETER DEV NAME(LOC) 3E.C; GLUCOSE,POINT OF CARE 215 MG/DL (70-110)
[2023-12-31 20:46] VITALS: BP 120/72; PULSE 85; RESP 18; TEMP 97.9
[2023-12-31] MEDS: INSULIN GLARGINE,HUM.REC.ANLOG 100 UNITS/ML SQ SCH (21:06)
[2024-01-01 05:40] LABS: GLUCOMETER DEV NAME(LOC) 3E.C; GLUCOSE,POINT OF CARE 355 MG/DL (70-110)
[2024-01-01 08:45] VITALS: BP_DIAS 68; PULSE 97; RESP 18; TEMP 98.3; O2SAT 97
[2024-01-01 12:16] LABS: GLUCOMETER DEV NAME(LOC) 3E.C; GLUCOSE,POINT OF CARE 345 MG/DL (70-110)
[2024-01-01 17:31] LABS: GLUCOMETER DEV NAME(LOC) 3E.C; GLUCOSE,POINT OF CARE 328 MG/DL (70-110)
[2024-01-01 21:05] LABS: GLUCOMETER DEV NAME(LOC) 3E.C; GLUCOSE,POINT OF CARE 295 MG/DL (70-110)
[2024-01-02 06:21] LABS: GLUCOMETER DEV NAME(LOC) 3E.C; GLUCOSE,POINT OF CARE 319 MG/DL (70-110)
[2024-01-02] MEDS: MUPIROCIN CALCIUM 2% 22 GM OINTMENT NASAL SCH (10:28)
[2024-01-02 11:46] LABS: GLUCOMETER DEV NAME(LOC) 3E.C; GLUCOSE,POINT OF CARE 398 MG/DL (70-110)
[2024-01-02 13:29] VITALS: BP 183/95; PULSE 103; RESP 18; TEMP 97; O2SAT 97
[2024-01-02 14:36] VITALS: BP 149/77; PULSE 90; RESP 18
[2024-01-02 17:30] LABS: GLUCOMETER DEV NAME(LOC) 3E.C; GLUCOSE,POINT OF CARE 282 MG/DL (70-110)
[2024-01-02 20:25] LABS: GLUCOMETER DEV NAME(LOC) 3E.C; GLUCOSE,POINT OF CARE 233 MG/DL (70-110)
[2024-01-02 20:50] VITALS: BP 138/79; PULSE 84; RESP 18; TEMP 97.5
[2024-01-03 05:56] LABS: GLUCOMETER DEV NAME(LOC) 3E.C; GLUCOSE,POINT OF CARE 212 MG/DL (70-110)
[2024-01-03 10:02] VITALS: BP 174/89; PULSE 102; RESP 18; TEMP 98.5; O2SAT 99
[2024-01-03 11:31] LABS: GLUCOMETER DEV NAME(LOC) 3E.C; GLUCOSE,POINT OF CARE 341 MG/DL (70-110)
[2024-01-03 16:25] LABS: GLUCOMETER DEV NAME(LOC) 3E.C; GLUCOSE,POINT OF CARE 392 MG/DL (70-110)
[2024-01-03 21:11] LABS: GLUCOMETER DEV NAME(LOC) 3E.C; GLUCOSE,POINT OF CARE 396 MG/DL (70-110)
[2024-01-03 21:21] VITALS: BP 144/76; PULSE 91; RESP 18; TEMP 97.9
[2024-01-04 05:55] LABS: GLUCOMETER DEV NAME(LOC) 3E.C; GLUCOSE,POINT OF CARE 197 MG/DL (70-110)
[2024-01-04 11:06] LABS: GLUCOMETER DEV NAME(LOC) 3E.C; GLUCOSE,POINT OF CARE 311 MG/DL (70-110)
[2024-01-04 11:54] VITALS: RESP 18; TEMP 98
[2024-01-04] MEDS: SitaGLIPtin PHOSPHATE 25 MG TABLET PO SCH (16:07)
[2024-01-04 18:01] LABS: GLUCOMETER DEV NAME(LOC) 3E.C; GLUCOSE,POINT OF CARE 282 MG/DL (70-110)
[2024-01-04 20:45] VITALS: BP 119/61; PULSE 97; RESP 18; TEMP 98.7; O2SAT 99
[2024-01-04 21:06] LABS: GLUCOMETER DEV NAME(LOC) 3E.C; GLUCOSE,POINT OF CARE 176 MG/DL (70-110)
[2024-01-05 06:35] LABS: GLUCOMETER DEV NAME(LOC) 3E.C; GLUCOSE,POINT OF CARE 182 MG/DL (70-110)
[2024-01-05 08:28] LABS: CALCIUM, TOTAL 8.7 mg/dL (8.8-10.5); CREATININE 1.93 mg/dL (0.60-1.30); POTASSIUM 4.6 mmol/L (3.5-5.1)
[2024-01-05 10:19] VITALS: BP 126/54; PULSE 92; RESP 16; TEMP 97.5; O2SAT 97
[2024-01-05 11:31] LABS: GLUCOMETER DEV NAME(LOC) 3E.C; GLUCOSE,POINT OF CARE 283 MG/DL (70-110)
[2024-01-05 17:10] LABS: GLUCOMETER DEV NAME(LOC) 3E.C; GLUCOSE,POINT OF CARE 206 MG/DL (70-110)
[2024-01-05 20:46] LABS: GLUCOMETER DEV NAME(LOC) 3E.C; GLUCOSE,POINT OF CARE 98 MG/DL (70-110)
[2024-01-05] MEDS ORDERED: DOXYCYCLINE HYCLATE 100 MG TABLET PO SCH (23:00)
[2024-01-05 23:21] VITALS: BP 108/57; PULSE 95; RESP 18; TEMP 98.6; O2SAT 96
[2024-01-06 06:36] LABS: GLUCOMETER DEV NAME(LOC) 3E.C; GLUCOSE,POINT OF CARE 205 MG/DL (70-110)
[2024-01-06 08:24] VITALS: BP 161/85; PULSE 96; RESP 18; TEMP 98.4; O2SAT 98
[2024-01-06] MEDS: MUPIROCIN CALCIUM 2% 22 GM OINTMENT NASAL SCH (09:27)
[2024-01-06 11:31] LABS: GLUCOMETER DEV NAME(LOC) 3E.C; GLUCOSE,POINT OF CARE 256 MG/DL (70-110)
[2024-01-06 17:36] LABS: GLUCOMETER DEV NAME(LOC) 3E.C; GLUCOSE,POINT OF CARE 253 MG/DL (70-110)
[2024-01-06 20:14] VITALS: BP 132/84; PULSE 78; RESP 18; TEMP 98.1; O2SAT 98
[2024-01-06 21:05] LABS: GLUCOMETER DEV NAME(LOC) 3E.C; GLUCOSE,POINT OF CARE 141 MG/DL (70-110)
[2024-01-07 07:11] LABS: GLUCOMETER DEV NAME(LOC) 3E.C; GLUCOSE,POINT OF CARE 113 MG/DL (70-110)
[2024-01-07 09:30] VITALS: BP 156/66; PULSE 88; RESP 16; TEMP 98; O2SAT 98
[2024-01-07 11:55] LABS: GLUCOMETER DEV NAME(LOC) 3E.C; GLUCOSE,POINT OF CARE 161 MG/DL (70-110)
[2024-01-07 17:15] LABS: GLUCOMETER DEV NAME(LOC) 3E.C; GLUCOSE,POINT OF CARE 311 MG/DL (70-110)
[2024-01-07 20:46] LABS: GLUCOMETER DEV NAME(LOC) 3E.C; GLUCOSE,POINT OF CARE 117 MG/DL (70-110)
[2024-01-08 06:25] LABS: GLUCOMETER DEV NAME(LOC) 3E.C; GLUCOSE,POINT OF CARE 151 MG/DL (70-110)
[2024-01-08 10:49] VITALS: BP 149/81; PULSE 86; RESP 17; TEMP 97.8; O2SAT 99
[2024-01-08 11:25] LABS: GLUCOMETER DEV NAME(LOC) 3E.C; GLUCOSE,POINT OF CARE 194 MG/DL (70-110)
[2024-01-08 18:56] LABS: GLUCOMETER DEV NAME(LOC) 3E.C; GLUCOSE,POINT OF CARE 212 MG/DL (70-110)
[2024-01-08 20:15] LABS: GLUCOMETER DEV NAME(LOC) 3E.C; GLUCOSE,POINT OF CARE 139 MG/DL (70-110)
[2024-01-09 06:31] LABS: GLUCOMETER DEV NAME(LOC) 3E.C; GLUCOSE,POINT OF CARE 93 MG/DL (70-110)
[2024-01-09 10:10] VITALS: BP 150/77; PULSE 87; RESP 18; TEMP 97.6; O2SAT 98
[2024-01-09 12:05] LABS: GLUCOMETER DEV NAME(LOC) 3E.C; GLUCOSE,POINT OF CARE 278 MG/DL (70-110)
[2024-01-09 17:41] LABS: GLUCOMETER DEV NAME(LOC) 3E.C; GLUCOSE,POINT OF CARE 173 MG/DL (70-110)
[2024-01-09 21:03] VITALS: BP 148/78; PULSE 96; RESP 18; TEMP 97.2; O2SAT 97
[2024-01-09 21:25] LABS: GLUCOMETER DEV NAME(LOC) 3E.C; GLUCOSE,POINT OF CARE 142 MG/DL (70-110)
[2024-01-10 07:30] LABS: GLUCOMETER DEV NAME(LOC) 3E.C; GLUCOSE,POINT OF CARE 128 MG/DL (70-110)
[2024-01-10 09:32] VITALS: BP 160/69; PULSE 89; RESP 18; TEMP 97.7; O2SAT 98
[2024-01-10 11:15] LABS: GLUCOMETER DEV NAME(LOC) 3E.C; GLUCOSE,POINT OF CARE 158 MG/DL (70-110)
[2024-01-10] MEDS ORDERED: VALP250C48 PO (12:42)
[2024-01-10] MEDS ORDERED: OLAN10TA74 PO (12:42)
[2024-01-10] MEDS ORDERED: SITA25 PO (13:51)
[2024-01-10] MEDS ORDERED: AMLO-257 PO (13:54)
== END 2024-01-10 17:28 | disposition home or self-care (01) | DRG 750 ==
LOC: 3EI 22:58 → 3EC 12-26 06:01
PROVIDERS: ADMIT Psychiatry & Neurology Child & Adolescent Psychiatry; ATTEND Psychiatry & Neurology Child & Adolescent Psychiatry
PROC: GZHZZZZ Group Psychotherapy (ICD-10-PCS; principal; 2023-12-26)
DX: F20.0 Paranoid schizophrenia (principal); D63.8 Anemia in other chronic diseases classified elsewhere; I12.0 Hypertensive chronic kidney disease with stage 5 chronic kidney disease or end stage renal disease; E11.22 Type 2 diabetes mellitus with diabetic chronic kidney disease; N18.6 End stage renal disease; E78.5 Hyperlipidemia, unspecified; E87.5 Hyperkalemia; G47.00 Insomnia, unspecified; E87.6 Hypokalemia; Z20.822 Contact with and (suspected) exposure to COVID-19; N45.2 Orchitis; Z87.820 Personal history of traumatic brain injury; F15.90 Other stimulant use, unspecified, uncomplicated; I25.10 Atherosclerotic heart disease of native coronary artery without angina pectoris; Z95.5 Presence of coronary angioplasty implant and graft; F41.9 Anxiety disorder, unspecified
CPT/HCPCS: 76870; 80048; 80053; 80061; 82962; 83036; 84132; 84443; 85025; 87081; J1815

== ENCOUNTER 2024-06-27 19:57 | Emergency (ER) | payer MEDICAID, OTHER ==
[~2024-06-27] VITALS: Ht 171.4 cm; Wt 84.1 kg
[~2024-06-27 19:57] MED LIST changes: +AMLO-257 PO; +INSLAN SQ; +OLAN10TA74 PO; +SITA25 PO
[2024-06-27 20:05] VITALS: BP 151/98; PULSE 95; RESP 20; TEMP 99.1; O2SAT 100
[2024-06-27 20:25] LABS: GLUCOMETER DEV NAME(LOC) ER.7; GLUCOSE,POINT OF CARE 120 MG/DL (70-110)
== END 2024-06-27 21:56 | disposition left against medical advice (07) ==
LOC: EMS 20:01
DX: Z76.0 Encounter for issue of repeat prescription (principal); Z53.21 Procedure and treatment not carried out due to patient leaving prior to being seen by health care provider
CPT/HCPCS: 82962

== ENCOUNTER 2024-11-22 23:24 | Inpatient (IN) | payer OTHER ==
[~2024-11-22] VITALS: Ht 185.4 cm; Wt 79.0 kg
[2024-11-22 23:48] VITALS: PULSE 156; RESP 49; O2SAT 99
[2024-11-22 23:55] LABS: ABG BASE EXCESS -21.1 mmol/L (-2.0-3.0); ABG CARBOXYHEMOGLOBIN 2.9 % (0.5-1.5); ABG METHEMOGLOBIN 0.7 % (0.0-1.5); ABG OXYGEN CONTENT 15.7 mL/dL (15.0-23.0); ABG OXYGEN SATURATION 99.7 % (94.0-98.0); ABG OXYHEMOGLOBIN 96.1 % (94.0-98.0); ABG PCO2 21 mmHg (32.0-48.0); ABG TOTAL HEMOGLOBIN 10.4 G/dL (13.5-17.5); SOURCE, BLOOD GAS ARTERIAL; TEMPERATURE, FAHRENHEIT, BG 98.6 FAHREN (96.0-98.6)
[2024-11-22 23:57] LABS: BASOPHILS % (AUTO) 1.5 % (0.0-2.0); EOSINOPHILS % (AUTO) 0.6 % (1.0-6.0); HEMATOCRIT 36.1 % (41-53); HEMOGLOBIN 10.8 g/dL (13.5-17.5); LYMPHOCYTES # (AUTO) 5.2 K/uL (1.0-4.8); LYMPHOCYTES % (AUTO) 45.1 % (22.0-44.0); MEAN CORPUSCULAR HEMOGLOBIN 25.3 pg (26.0-34.0); MEAN CORPUSCULAR HGB CONC 29.9 G/dL (31.0-37.0); MEAN CORPUSCULAR VOLUME 84 fL (80-100); MONOCYTES # (AUTO) 0.8 K/uL (0.1-1.0); MONOCYTES % (AUTO) 7.2 % (2.0-9.0); NEUTROPHILS # (AUTO) 5.2 K/uL (1.8-7.7); NEUTROPHILS % (AUTO) 45.6 % (40.0-70.0); PLATELET COUNT (AUTO) 346 K/uL (150-450); RED BLOOD CELL COUNT(AUTO) 4.27 MIL/uL (4.50-5.90); RED CELL DISTRIBUTION WIDTH 16.1 % (11.5-14.5); WHITE BLOOD COUNT (AUTO) 11.5 K/uL (4.5-11.0)
[2024-11-23] VITALS (12 sets, daily range): BP systolic 104–150; BP diastolic 67–85; PULSE 61–104; RESP 20–38; TEMP 94–95.5; O2SAT 0–100
[2024-11-23] MEDS ORDERED: ASPIRIN 81 MG CHEWABLE TABLET PO ONE
[2024-11-23] MEDS ORDERED: ONDANSETRON HCL 4 MG/2 ML VIAL IVP PRN
[2024-11-23] MEDS ORDERED: ATORVASTATIN CALCIUM 40 MG TABLET PO ONE
[2024-11-23] MEDS: ASPIRIN 325 MG TABLET NG ONE (00:04)
[2024-11-23] MEDS: HEPARIN SODIUM,PORCINE 5,000 UNITS/ML VIAL IVP ONE (00:04)
[2024-11-23 00:05] LABS: ANION GAP 18 mmol/L (8-16); CALCIUM, TOTAL 8.4 mg/dL (8.8-10.5); CARBON DIOXIDE 17 mmol/L (22-29); CHLORIDE 100 mmol/L (98-107); CREATININE 2.48 mg/dL (0.60-1.30); GLOMERULAR FILTR. RATE CALC 32 mL/min (>60); GLUCOSE,RANDOM 375 mg/dL (70-110); POTASSIUM 4.2 mmol/L (3.5-5.1); SODIUM SERUM 135 mmol/L (136-145); UREA NITROGEN, BLOOD 37 mg/dL (7-18)
[2024-11-23] MEDS: ATORVASTATIN CALCIUM 40 MG TABLET PO ONE (00:05)
[2024-11-23] MEDS ORDERED: VERAPAMIL HCL 2.5 MG/ML 2 ML VIAL ONE (00:09)
[2024-11-23] MEDS ORDERED: NITROGLYCERIN 50 MG/D5% WATER 0 ML ONE (00:10)
[2024-11-23] MEDS ORDERED: LIDOCAINE/PF 1% 30 ML VIAL ONE (00:10)
[2024-11-23] MEDS ORDERED: HEPARIN SODIUM 1000 UNITS/NS 1,000 ML ONE (00:10)
[2024-11-23] MEDS ORDERED: SODIUM BICARBONATE 50 MEQ/50 ML VIAL ONE (00:10)
[2024-11-23] MEDS ORDERED: IOHEXOL 300 MG/ML 100 ML VIAL ONE (00:10)
[2024-11-23 00:11] LABS: ALBUMIN 3.1 g/dL (3.4-5.0); BILIRUBIN,DIRECT 0.1 mg/dL (0.00-0.20); BILIRUBIN,TOTAL 0.2 mg/dL (0.1-1.0); TOTAL PROTEIN, SERUM 7.7 g/dL (6.4-8.2)
[2024-11-23 00:12] LABS: ALCOHOL, URINE DRUG SCREEN NEGATIVE (NEGATIVE); AMPHET/METH SCREEN,URINE POSITIVE (NEGATIVE); BARBITURATE SCREEN, URINE NEGATIVE (NEGATIVE); BENZODIAZEPINES SCREEN,URINE NEGATIVE (NEGATIVE); CANNABINOID SCREEN,URINE NEGATIVE (NEGATIVE); COCAINE SCREEN,URINE NEGATIVE (NEGATIVE); METHADONE SCREEN, URINE NEGATIVE (NEGATIVE); OPIATE SCREEN,URINE NEGATIVE (NEGATIVE); PHENCYCLIDINE SCREEN,URINE NEGATIVE (NEGATIVE)
[2024-11-23 00:14] LABS: ABG PH 7.166 (7.350-7.450)
[2024-11-23 00:15] LABS: ABG A-A DIFF O2 107.5 mmHg (10-20.0); ALLEN TEST, BLOOD GAS Positive; O2 DEVICE,BLOOD GAS VENTILATOR (ROOM AIR); PEEP,BG 5 cm H2O; PO2, ARTERIAL BG 584.3 mmHg (83.0-108.0); SITE, BLOOD GAS RT RADIAL; SPONTANEOUS VT, BG 786 ml; VT, ABG 400 ml
[2024-11-23] MEDS: PROPOFOL 1000 MG/ISO-OSM 100 ML IV PRN ×2 (00:17→21:09)
[2024-11-23 00:20] LABS: ALCOHOL, BLOOD (SERUM) < 3 mg/dL (0-10)
[2024-11-23 00:22] LABS: CREATINE KINASE, TOTAL ONLY 204 U/L (39-308)
[2024-11-23 00:24] LABS: B-TYPE NATRIURETIC PEPTIDE 158 pg/mL (0-100)
[2024-11-23 00:26] LABS: TROPONIN I-HIGH SENSITIVITY 175 ng/L (<76)
[2024-11-23] MEDS ORDERED: DEXTROSE 50%-WATER 25 GM/50 ML SYRINGE IVP PRN (00:30)
[2024-11-23] MEDS ORDERED: HEPARIN SODIUM,PORCINE 1,000 UNITS/ML 10 ML VIAL ONE (00:45)
[2024-11-23] MEDS ORDERED: TICAGRELOR 90 MG TABLET ONE (00:47)
[2024-11-23 00:59] LABS: PROTHROMBIN TIME 10.9 SEC (9.4-11.6)
[2024-11-23] MEDS: [UNRECOGNIZED DRUG - OTHER] IV PRN (01:19)
[2024-11-23] MEDS: SODIUM CHLORIDE 0.9% IV PRN (01:19)
[2024-11-23] MEDS: LIDOCAINE 1% 30 ML/SOD BICARB 8.4% 4 ML SQ ONE (01:30)
[2024-11-23] MEDS: IOHEXOL 300 MG/ML 100 ML VIAL IARTER ONE (01:30)
[2024-11-23] MEDS: HEPARIN SODIUM,PORCINE 1,000 UNITS/ML 10 ML VIAL IVP ONE ×2 (01:30→02:00)
[2024-11-23] MEDS: SODIUM CHLORIDE 0.9% 500 ML IV ONE ×2 (01:30→02:27)
[2024-11-23] MEDS: HEPARIN SODIUM 1000 UNITS/NS 1,000 ML IARTER ONE (01:30)
[2024-11-23] MEDS: SODIUM BICARBONATE [ADULT] 8.4% 50 MEQ/50 ML SYRINGE IVP ONE (02:27)
[2024-11-23] MEDS: DEXMEDETOMIDINE 400 MCG/NS 100 ML IV PRN (02:44)
[2024-11-23] MEDS: LevETIRAcetam 750 MG in DEXTROSE 5%-WATER 100 ML IV ONE (03:07)
[2024-11-23] MEDS: TICAGRELOR 90 MG TABLET PO ONE (03:51)
[2024-11-23] MEDS: NOREPINEPHRINE 8 MG/0.9 % NACL 250 ML IV PRN (04:11)
[2024-11-23] MEDS: FentaNYL CIT 1000MCG/0.9% NACL 100 ML IV PRN (04:21)
[2024-11-23 07:09] LABS: BASOPHILS % (AUTO) 0.2 % (0.0-2.0); EOSINOPHILS % (AUTO) 0 % (1.0-6.0); HEMATOCRIT 28.5 % (41-53); LYMPHOCYTES # (AUTO) 0.6 K/uL (1.0-4.8); LYMPHOCYTES % (AUTO) 5.3 % (22.0-44.0); MEAN CORPUSCULAR HGB CONC 31.5 G/dL (31.0-37.0); MEAN CORPUSCULAR VOLUME 79 fL (80-100); MONOCYTES # (AUTO) 0.7 K/uL (0.1-1.0); NEUTROPHILS # (AUTO) 9.8 K/uL (1.8-7.7); PLATELET COUNT (AUTO) 333 K/uL (150-450); RED BLOOD CELL COUNT(AUTO) 3.59 MIL/uL (4.50-5.90); RED CELL DISTRIBUTION WIDTH 15.8 % (11.5-14.5); WHITE BLOOD COUNT (AUTO) 11.1 K/uL (4.5-11.0)
[2024-11-23 07:13] LABS: NEUTROPHILS % (AUTO) 88.5 % (40.0-70.0)
[2024-11-23 07:19] LABS: CALCIUM, TOTAL 7.5 mg/dL (8.8-10.5); CREATININE 2.43 mg/dL (0.60-1.30); MAGNESIUM 2.1 mg/dL (1.80-2.40)
[2024-11-23 07:22] LABS: POTASSIUM 7.2 mmol/L (3.5-5.1)
[2024-11-23] MEDS ORDERED: CALCIUM GLUCONATE 0.465 MEQ/ML 10 ML VIAL ONE (08:44)
[2024-11-23] MEDS: VALPROIC ACID 250 MG CAPSULE PO SCH (09:00)
[2024-11-23] MEDS: DOCUSATE SODIUM 100 MG CAPSULE PO SCH (09:00)
[2024-11-23] MEDS: DEXTROSE 50%-WATER 25 GM/50 ML SYRINGE IVP ONE ×2 (09:11→15:11)
[2024-11-23] MEDS: INSULIN REGULAR, HUMAN 100 UNITS/ML IVP ONE ×2 (09:12→15:17)
[2024-11-23] MEDS: CALCIUM GLUCONATE 100 MG/ML 10 ML IVP ONE ×2 (09:12→12:45)
[2024-11-23 09:33] LABS: ABG BASE EXCESS -9.6 mmol/L (-2.0-3.0); ABG CARBOXYHEMOGLOBIN 0.2 % (0.5-1.5); ABG HCO3 17.3 mmol/L (21.0-28.0); ABG METHEMOGLOBIN 0.9 % (0.0-1.5); ABG OXYGEN CONTENT 13.7 mL/dL (15.0-23.0); ABG OXYGEN SATURATION 99.7 % (94.0-98.0); ABG OXYHEMOGLOBIN 98.6 % (94.0-98.0); ABG PCO2 37 mmHg (32.0-48.0); ABG PH 7.285 (7.350-7.450); ABG TOTAL HEMOGLOBIN 9.4 G/dL (13.5-17.5); SOURCE, BLOOD GAS ARTERIAL
[2024-11-23 09:34] LABS: ABG A-A DIFF O2 48.6 mmHg (10-20.0); O2 DEVICE,BLOOD GAS VENTILATOR (ROOM AIR); PEEP,BG 5 cm H2O; SITE, BLOOD GAS ARTERIAL LINE; VT, ABG 400 ml
[2024-11-23] MEDS: ASPIRIN 81 MG CHEWABLE TABLET PO SCH (09:39)
[2024-11-23] MEDS: TICAGRELOR 90 MG TABLET PO SCH (09:39)
[2024-11-23] MEDS: METOPROLOL TARTRATE 25 MG TABLET GT SCH (09:39)
[2024-11-23] MEDS: HEPARIN SODIUM,PORCINE 5,000 UNITS/ML VIAL SQ SCH (09:40)
[2024-11-23] MEDS: SODIUM ZIRCONIUM CYCLOSILICATE 5 GM POWDER PACKET PO ONE (10:23)
[2024-11-23] MEDS: SODIUM CHLORIDE 0.9% 1,000 ML IV SCH (10:50)
[2024-11-23] MEDS: LevETIRAcetam 250 MG in DEXTROSE 5%-WATER 100 ML IV SCH (10:56)
[2024-11-23] MEDS ORDERED: CALCIUM CHLORIDE 100 MG/ML 10 ML SYRINGE IVP ONE (11:00)
[2024-11-23] MEDS ORDERED: EPINEPHrine 1:10,000 [1 MG/10 ML] SYRINGE ONE (11:00)
[2024-11-23] MEDS ORDERED: NALOXONE HCL 1 MG/ML 2 ML SYRINGE ONE (11:00)
[2024-11-23] MEDS ORDERED: 0.9% SODIUM CHLORIDE 1,000 ML BAG ONE (11:00)
[2024-11-23] MEDS ORDERED: SODIUM BICARBONATE [ADULT] 8.4% 50 MEQ/50 ML SYRINGE IVP ONE (11:00)
[2024-11-23] MEDS ORDERED: DEXTROSE 50%-WATER 25 GM/50 ML SYRINGE IVP ONE (12:45)
[2024-11-23] MEDS ORDERED: FUROSEMIDE 40 MG/4 ML VIAL IVP ONE (12:45)
[2024-11-23] MEDS: ALBUTEROL SULFATE 2.5 MG/0.5 ML NEB SOLUTION NEB ONE (12:45)
[2024-11-23] MEDS ORDERED: INSULIN REGULAR, HUMAN 100 UNITS/ML IVP ONE (12:45)
[2024-11-23 12:46] LABS: LACTIC ACID 0.9 mmol/L (0.4-2.0)
[2024-11-23 12:51] LABS: GLUCOMETER DEV NAME(LOC) ER.7; GLUCOSE,POINT OF CARE 248 MG/DL (70-110)
[2024-11-23 12:51] LABS: GLUCOMETER DEV NAME(LOC) ER.7; GLUCOSE,POINT OF CARE 281 MG/DL (70-110)
[2024-11-23 13:29] LABS: TROPONIN I-HIGH SENSITIVITY Greater than 25000 ng/L (<76)
[2024-11-23 14:18] LABS: ABG CARBOXYHEMOGLOBIN 0.3 % (0.5-1.5); ABG HCO3 16.4 mmol/L (21.0-28.0); ABG METHEMOGLOBIN 0.3 % (0.0-1.5); ABG OXYGEN CONTENT 15.6 mL/dL (15.0-23.0); ABG OXYGEN SATURATION 99.9 % (94.0-98.0); ABG OXYHEMOGLOBIN 99.3 % (94.0-98.0); ABG PCO2 33 mmHg (32.0-48.0); ABG PH 7.293 (7.350-7.450); ABG TOTAL HEMOGLOBIN 10.2 G/dL (13.5-17.5); SOURCE, BLOOD GAS ARTERIAL
[2024-11-23 14:18] LABS: ALBUMIN 2.7 g/dL (3.4-5.0); BILIRUBIN,TOTAL 0.3 mg/dL (0.1-1.0); CALCIUM, TOTAL 8.1 mg/dL (8.8-10.5); CREATININE 2.57 mg/dL (0.60-1.30); MAGNESIUM 2.1 mg/dL (1.80-2.40); PHOSPHORUS 6.4 mg/dL (2.5-4.9); TOTAL PROTEIN, SERUM 6.4 g/dL (6.4-8.2)
[2024-11-23 14:19] LABS: O2 DEVICE,BLOOD GAS VENTILATOR (ROOM AIR); PO2, ARTERIAL BG 491.3 mmHg (83.0-108.0); SITE, BLOOD GAS ARTERIAL LINE
[2024-11-23 14:20] LABS: ABG A-A DIFF O2 189.7 mmHg (10-20.0); PEEP,BG 5 cm H2O; SPONTANEOUS VT, BG 335 ml; VT, ABG 400 ml
[2024-11-23 14:24] LABS: POTASSIUM 6.4 mmol/L (3.5-5.1)
[2024-11-23] MEDS: SODIUM ZIRCONIUM CYCLOSILICATE 10 GM POWDER PACKET PO SCH (15:11)
[2024-11-23] MEDS: FUROSEMIDE 20 MG/2 ML VIAL IVP ONE (15:17)
[2024-11-23] MEDS: HEPARIN SODIUM 25000 UNITS/D5W 250 ML IV PRN (16:05)
[2024-11-23 16:14] LABS: APPEARANCE,URINE HAZY (CLEAR); BILIRUBIN,URINE NEGATIVE (NEGATIVE); COLOR,URINE YELLOW (YELLOW); GLUCOSE, URINE (UA) TRACE mg/dL (NEGATIVE); KETONES,URINE NEGATIVE (NEGATIVE); LEUKOCYTE ESTERASE ,URINE NEGATIVE (NEGATIVE); NITRATE,URINE NEGATIVE (NEGATIVE); OCCULT BLOOD,URINE LARGE (NEGATIVE); PH,URINE 5.5 (5.0-8.0); PROTEIN,URINE 100-200,SEE CONFIRM mg/dL (NEGATIVE); SPECIFIC GRAVITIY, URINE 1.038 (1.003-1.030); UROBILINOGEN,URINE <=1.0 mg/dL (<=1.0)
[2024-11-23 16:17] LABS: CREATININE,URINE RANDOM 152.4 mg/dL (30.0-125.0); PROTEIN,URINE RANDOM 204 mg/dL (0-11.9); SODIUM,URINE RANDOM 11 mmol/l (20-110)
[2024-11-23 16:27] LABS: SULFOSALICYLIC ACID,URINE 1+ (Negative)
[2024-11-23 16:28] LABS: BACTERIA,URINE None Seen /HPF (None Seen); SQUAMOUS EPITHELIAL CELL,UR Rare /LPF (None Seen); WBC,URINE 0-2 /HPF (0-5)
[2024-11-23 20:30] LABS: MAGNESIUM 2.3 mg/dL (1.80-2.40); PHOSPHORUS 6.8 mg/dL (2.5-4.9)
[2024-11-23 20:32] LABS: ALBUMIN 2.8 g/dL (3.4-5.0); BILIRUBIN,TOTAL 0.3 mg/dL (0.1-1.0); CALCIUM, TOTAL 8.7 mg/dL (8.8-10.5); CREATININE 2.67 mg/dL (0.60-1.30); POTASSIUM 5.1 mmol/L (3.5-5.1); TOTAL PROTEIN, SERUM 6.8 g/dL (6.4-8.2)
[2024-11-23 20:45] LABS: GLUCOMETER DEV NAME(LOC) ICUN.5; GLUCOSE,POINT OF CARE 151 MG/DL (70-110)
[2024-11-23] MEDS ORDERED: ATORVASTATIN CALCIUM 40 MG TABLET PO SCH (21:00)
[2024-11-23] MEDS: ATORVASTATIN CALCIUM 40 MG TABLET PO SCH (21:06)
[2024-11-23] MEDS: CHLORHEXIDINE GLUCONATE 2% TOWELETTE [2'S/6'S] TP SCH (22:26)
[2024-11-24] VITALS (16 sets, daily range): BP systolic 100–145; BP diastolic 50–88; PULSE 58–86; RESP 24–31; TEMP 89.8–98.6; O2SAT 0–99
[2024-11-24 00:01] LABS: GLUCOMETER DEV NAME(LOC) ICUN.5; GLUCOSE,POINT OF CARE 95 MG/DL (70-110)
[2024-11-24 00:20] LABS: GLUCOMETER DEV NAME(LOC) ICU.S6; GLUCOSE,POINT OF CARE 181 MG/DL (70-110)
[2024-11-24 01:02] LABS: SOURCE, BLOOD GAS ARTERIAL
[2024-11-24 01:06] LABS: ABG OXYGEN CONTENT 13.9 mL/dL (15.0-23.0)
[2024-11-24 01:11] LABS: ABG HCO3 15.8 mmol/L (21.0-28.0); ABG PCO2 30 mmHg (32.0-48.0); ABG PH 7.307 (7.350-7.450); PO2, ARTERIAL BG 224.4 mmHg (83.0-108.0); TEMPERATURE, FAHRENHEIT, BG 94.5 FAHREN (96.0-98.6)
[2024-11-24 01:12] LABS: ABG BASE EXCESS -11.8 mmol/L (-2.0-3.0); ABG CARBOXYHEMOGLOBIN 0.1 % (0.5-1.5); ABG METHEMOGLOBIN 0.3 % (0.0-1.5); ABG OXYHEMOGLOBIN 99.5 % (94.0-98.0); ABG TOTAL HEMOGLOBIN 9.5 G/dL (13.5-17.5); O2 DEVICE,BLOOD GAS VENT (ROOM AIR); VT, ABG 450 ml
[2024-11-24 01:13] LABS: PEEP,BG 5 cm H2O
[2024-11-24 02:45] LABS: ALBUMIN 2.6 g/dL (3.4-5.0); BILIRUBIN,TOTAL 0.3 mg/dL (0.1-1.0); CALCIUM, TOTAL 8.3 mg/dL (8.8-10.5); CREATININE 2.53 mg/dL (0.60-1.30); MAGNESIUM 2.1 mg/dL (1.80-2.40); PHOSPHORUS 6.7 mg/dL (2.5-4.9); POTASSIUM 5.1 mmol/L (3.5-5.1); TOTAL PROTEIN, SERUM 6.3 g/dL (6.4-8.2)
[2024-11-24 06:15] LABS: SITE, BLOOD GAS ARTERIAL LINE
[2024-11-24 06:21] LABS: BASOPHILS % (AUTO) 0.4 % (0.0-2.0); EOSINOPHILS % (AUTO) 0 % (1.0-6.0); HEMATOCRIT 31.9 % (41-53); HEMOGLOBIN 10.1 g/dL (13.5-17.5); LYMPHOCYTES # (AUTO) 1.1 K/uL (1.0-4.8); LYMPHOCYTES % (AUTO) 16.7 % (22.0-44.0); MEAN CORPUSCULAR HEMOGLOBIN 25.4 pg (26.0-34.0); MEAN CORPUSCULAR HGB CONC 31.5 G/dL (31.0-37.0); MEAN CORPUSCULAR VOLUME 81 fL (80-100); MONOCYTES # (AUTO) 0.4 K/uL (0.1-1.0); MONOCYTES % (AUTO) 6.4 % (2.0-9.0); NEUTROPHILS # (AUTO) 5.1 K/uL (1.8-7.7); NEUTROPHILS % (AUTO) 76.5 % (40.0-70.0); PLATELET COUNT (AUTO) 268 K/uL (150-450); RED BLOOD CELL COUNT(AUTO) 3.96 MIL/uL (4.50-5.90); RED CELL DISTRIBUTION WIDTH 15.7 % (11.5-14.5); WHITE BLOOD COUNT (AUTO) 6.7 K/uL (4.5-11.0)
[2024-11-24 06:55] LABS: GLUCOMETER DEV NAME(LOC) ICU.S6; GLUCOSE,POINT OF CARE 73 MG/DL (70-110)
[2024-11-24 07:49] LABS: ABG BASE EXCESS -12.8 mmol/L (-2.0-3.0); ABG CARBOXYHEMOGLOBIN 0.2 % (0.5-1.5); ABG HCO3 15.2 mmol/L (21.0-28.0); ABG OXYGEN CONTENT 15.7 mL/dL (15.0-23.0); ABG OXYGEN SATURATION 99.5 % (94.0-98.0); ABG OXYHEMOGLOBIN 99.3 % (94.0-98.0); ABG PCO2 36 mmHg (32.0-48.0); ABG TOTAL HEMOGLOBIN 10.8 G/dL (13.5-17.5); PO2, ARTERIAL BG 238.5 mmHg (83.0-108.0); SOURCE, BLOOD GAS ARTERIAL
[2024-11-24 07:51] LABS: ABG A-A DIFF O2 5.7 mmHg (10-20.0); ABG PH 7.234 (7.350-7.450); ALLEN TEST, BLOOD GAS Positive; SITE, BLOOD GAS ARTERIAL LINE
[2024-11-24 07:52] LABS: O2 DEVICE,BLOOD GAS VENTILATOR (ROOM AIR); PEEP,BG 5 cm H2O; SPONTANEOUS VT, BG 362 ml; VT, ABG 450 ml
[2024-11-24] MEDS: SODIUM BICARBONATE [ADULT] 8.4% 50 MEQ/50 ML SYRINGE IVP ONE (08:25)
[2024-11-24] MEDS: NOREPINEPHRINE 8 MG/0.9 % NACL 250 ML IV PRN (09:36)
[2024-11-24 09:37] LABS: ALBUMIN 2.3 g/dL (3.4-5.0); BILIRUBIN,TOTAL 0.4 mg/dL (0.1-1.0); CALCIUM, TOTAL 8.1 mg/dL (8.8-10.5); CREATININE 2.22 mg/dL (0.60-1.30); MAGNESIUM 1.9 mg/dL (1.80-2.40); PHOSPHORUS 5.6 mg/dL (2.5-4.9); POTASSIUM 4.5 mmol/L (3.5-5.1); TOTAL PROTEIN, SERUM 5.9 g/dL (6.4-8.2)
[2024-11-24] MEDS ORDERED: VALPROATE SODIUM 500 MG in DEXTROSE 5%-WATER 50 ML IV SCH (10:30)
[2024-11-24] MEDS: VALPROIC ACID 250 MG/5 ML SOLUTION UDCUP PO SCH (11:12)
[2024-11-24 12:06] LABS: GLUCOMETER DEV NAME(LOC) ICUN.5; GLUCOSE,POINT OF CARE 159 MG/DL (70-110)
[2024-11-24 12:15] LABS: GLUCOMETER DEV NAME(LOC) ICU.S6; GLUCOSE,POINT OF CARE 173 MG/DL (70-110)
[2024-11-24 13:30] LABS: TROPONIN I-HIGH SENSITIVITY Greater than 25000 ng/L (<76)
[2024-11-24 15:22] LABS: CALCIUM, TOTAL 7.6 mg/dL (8.8-10.5); CREATININE 2.23 mg/dL (0.60-1.30)
[2024-11-24 15:27] LABS: ALBUMIN 2.1 g/dL (3.4-5.0); BILIRUBIN,TOTAL 0.3 mg/dL (0.1-1.0); MAGNESIUM 1.9 mg/dL (1.80-2.40); TOTAL PROTEIN, SERUM 5.3 g/dL (6.4-8.2)
[2024-11-24] MEDS: INSULIN LISPRO 100 UNITS/ML SQ PRN (17:11)
[2024-11-24 17:25] LABS: GLUCOMETER DEV NAME(LOC) ICU.S6; GLUCOSE,POINT OF CARE 162 MG/DL (70-110)
[2024-11-24 20:25] LABS: ALBUMIN 2.4 g/dL (3.4-5.0); BILIRUBIN,TOTAL 0.3 mg/dL (0.1-1.0); CALCIUM, TOTAL 8.1 mg/dL (8.8-10.5); CREATININE 2.54 mg/dL (0.60-1.30); MAGNESIUM 1.9 mg/dL (1.80-2.40); PHOSPHORUS 6.6 mg/dL (2.5-4.9); POTASSIUM 4.3 mmol/L (3.5-5.1); TOTAL PROTEIN, SERUM 6.2 g/dL (6.4-8.2)
[2024-11-24] MEDS: DOCUSATE SODIUM 100 MG/10 ML LIQUID UDCUP NG SCH (21:09)
[2024-11-25] VITALS (14 sets, daily range): BP systolic 95–124; BP diastolic 63–81; PULSE 82–95; RESP 24–28; TEMP 98.6–99.4; O2SAT 0–100
[2024-11-25] MEDS: HEPARIN SODIUM,PORCINE 5,000 UNITS/ML VIAL IVP PRN (00:09)
[2024-11-25 02:50] LABS: ALBUMIN 1.9 g/dL (3.4-5.0); BILIRUBIN,TOTAL 0.2 mg/dL (0.1-1.0); CALCIUM, TOTAL 6.7 mg/dL (8.8-10.5); CREATININE 2.36 mg/dL (0.60-1.30); MAGNESIUM 1.6 mg/dL (1.80-2.40); PHOSPHORUS 5.1 mg/dL (2.5-4.9); POTASSIUM 4.2 mmol/L (3.5-5.1)
[2024-11-25 07:21] LABS: GLUCOMETER DEV NAME(LOC) ICU.S6; GLUCOSE,POINT OF CARE 150 MG/DL (70-110)
[2024-11-25 07:33] LABS: CALCIUM, TOTAL 7.8 mg/dL (8.8-10.5); CREATININE 2.56 mg/dL (0.60-1.30); PHOSPHORUS 5.1 mg/dL (2.5-4.9); POTASSIUM 4.7 mmol/L (3.5-5.1)
[2024-11-25 18:05] LABS: GLUCOMETER DEV NAME(LOC) ICUN.5; GLUCOSE,POINT OF CARE 160 MG/DL (70-110)
[2024-11-25 20:10] LABS: GLUCOMETER DEV NAME(LOC) ICUN.5; GLUCOSE,POINT OF CARE 141 MG/DL (70-110)
[2024-11-26] VITALS (15 sets, daily range): BP systolic 105–167; BP diastolic 70–107; PULSE 83–101; RESP 23–24; TEMP 98.7–99.6; O2SAT 100
[2024-11-26 01:15] LABS: GLUCOMETER DEV NAME(LOC) ICU.S6; GLUCOSE,POINT OF CARE 92 MG/DL (70-110)
[2024-11-26 06:01] LABS: GLUCOMETER DEV NAME(LOC) ICU.S6; GLUCOSE,POINT OF CARE 86 MG/DL (70-110)
[2024-11-26 06:01] LABS: GLUCOMETER DEV NAME(LOC) ICU.S6; GLUCOSE,POINT OF CARE 79 MG/DL (70-110)
[2024-11-26 06:12] LABS: CREATININE 2.14 mg/dL (0.60-1.30); MAGNESIUM 2.1 mg/dL (1.80-2.40); PHOSPHORUS 3.9 mg/dL (2.5-4.9); POTASSIUM 3.9 mmol/L (3.5-5.1)
[2024-11-26] MEDS: PIPERACILLIN SODIUM/TAZOBACTAM 2.25 GM in DEXTROSE 5%-WATER 50 ML IV SCH (14:13)
[2024-11-26 14:26] LABS: GLUCOMETER DEV NAME(LOC) ICU.S6; GLUCOSE,POINT OF CARE 84 MG/DL (70-110)
[2024-11-26] MEDS: HEPARIN SODIUM,PORCINE 5,000 UNITS/ML VIAL IVP PRN (15:56)
[2024-11-26 21:25] LABS: GLUCOMETER DEV NAME(LOC) ICU.S6; GLUCOSE,POINT OF CARE 140 MG/DL (70-110)
[2024-11-27] VITALS (14 sets, daily range): BP systolic 97–114; BP diastolic 59–68; PULSE 54–77; RESP 24–27; TEMP 98.2–99.2; O2SAT 100
[2024-11-27 01:06] LABS: GLUCOMETER DEV NAME(LOC) ICUN.5; GLUCOSE,POINT OF CARE 146 MG/DL (70-110)
[2024-11-27 06:01] LABS: BASOPHILS % (AUTO) 0.6 % (0.0-2.0); EOSINOPHILS % (AUTO) 0.8 % (1.0-6.0); HEMATOCRIT 21.8 % (41-53); HEMOGLOBIN 7.1 g/dL (13.5-17.5); LYMPHOCYTES # (AUTO) 0.9 K/uL (1.0-4.8); LYMPHOCYTES % (AUTO) 21.7 % (22.0-44.0); MEAN CORPUSCULAR HEMOGLOBIN 25.7 pg (26.0-34.0); MEAN CORPUSCULAR HGB CONC 32.3 G/dL (31.0-37.0); MEAN CORPUSCULAR VOLUME 80 fL (80-100); MONOCYTES # (AUTO) 0.4 K/uL (0.1-1.0); MONOCYTES % (AUTO) 10.5 % (2.0-9.0); NEUTROPHILS # (AUTO) 2.8 K/uL (1.8-7.7); NEUTROPHILS % (AUTO) 66.4 % (40.0-70.0); PLATELET COUNT (AUTO) 203 K/uL (150-450); RED BLOOD CELL COUNT(AUTO) 2.74 MIL/uL (4.50-5.90); RED CELL DISTRIBUTION WIDTH 16.1 % (11.5-14.5); WHITE BLOOD COUNT (AUTO) 4.2 K/uL (4.5-11.0)
[2024-11-27 06:22] LABS: CALCIUM, TOTAL 8.1 mg/dL (8.8-10.5); CREATININE 1.92 mg/dL (0.60-1.30); MAGNESIUM 2.1 mg/dL (1.80-2.40); PHOSPHORUS 2.9 mg/dL (2.5-4.9); POTASSIUM 3.7 mmol/L (3.5-5.1)
[2024-11-27 08:31] LABS: GLUCOMETER DEV NAME(LOC) ICUN.5; GLUCOSE,POINT OF CARE 97 MG/DL (70-110)
[2024-11-27] MEDS: PIPERACILLIN/TAZO 3.375 GM/D5W 50 ML IV SCH (11:41)
[2024-11-27 13:00] LABS: GLUCOMETER DEV NAME(LOC) ICUN.5; GLUCOSE,POINT OF CARE 130 MG/DL (70-110)
[2024-11-27] MEDS: HEPARIN SODIUM,PORCINE 5,000 UNITS/ML VIAL SQ SCH (16:33)
[2024-11-27 20:21] LABS: GLUCOMETER DEV NAME(LOC) ICUN.5; GLUCOSE,POINT OF CARE 119 MG/DL (70-110)
[2024-11-28] VITALS (23 sets, daily range): BP systolic 96–143; BP diastolic 58–83; PULSE 70–86; RESP 24–25; TEMP 98.7–99.2; O2SAT 100
[2024-11-28 05:50] LABS: GLUCOMETER DEV NAME(LOC) ICU.S6; GLUCOSE,POINT OF CARE 122 MG/DL (70-110)
[2024-11-28 06:28] LABS: BASOPHILS % (AUTO) 0.5 % (0.0-2.0); EOSINOPHILS % (AUTO) 1.2 % (1.0-6.0); LYMPHOCYTES # (AUTO) 0.8 K/uL (1.0-4.8); LYMPHOCYTES % (AUTO) 20.3 % (22.0-44.0); MEAN CORPUSCULAR HEMOGLOBIN 25.9 pg (26.0-34.0); MEAN CORPUSCULAR HGB CONC 32.6 G/dL (31.0-37.0); MEAN CORPUSCULAR VOLUME 79 fL (80-100); MONOCYTES # (AUTO) 0.4 K/uL (0.1-1.0); MONOCYTES % (AUTO) 10.4 % (2.0-9.0); NEUTROPHILS # (AUTO) 2.8 K/uL (1.8-7.7); NEUTROPHILS % (AUTO) 67.6 % (40.0-70.0); PLATELET COUNT (AUTO) 209 K/uL (150-450); RED BLOOD CELL COUNT(AUTO) 2.56 MIL/uL (4.50-5.90); RED CELL DISTRIBUTION WIDTH 16.4 % (11.5-14.5); WHITE BLOOD COUNT (AUTO) 4.1 K/uL (4.5-11.0)
[2024-11-28 06:32] LABS: HEMATOCRIT 20.3 % (41-53); HEMOGLOBIN 6.6 g/dL (13.5-17.5)
[2024-11-28 06:35] LABS: CALCIUM, TOTAL 8.3 mg/dL (8.8-10.5); CREATININE 1.98 mg/dL (0.60-1.30); POTASSIUM 3.9 mmol/L (3.5-5.1)
[2024-11-28] MEDS ORDERED: SODIUM CHLORIDE 0.9% 500 ML IV ONE (08:42)
[2024-11-28 13:16] LABS: GLUCOMETER DEV NAME(LOC) ICUN.5; GLUCOSE,POINT OF CARE 158 MG/DL (70-110)
[2024-11-28 21:15] LABS: GLUCOMETER DEV NAME(LOC) ICU.S6; GLUCOSE,POINT OF CARE 127 MG/DL (70-110)
[2024-11-29] VITALS (14 sets, daily range): BP systolic 92–124; BP diastolic 56–79; PULSE 70–82; RESP 24; TEMP 97–98.9; O2SAT 99–100
[2024-11-29 02:56] LABS: GLUCOMETER DEV NAME(LOC) ICUN.5; GLUCOSE,POINT OF CARE 132 MG/DL (70-110)
[2024-11-29 06:06] LABS: GLUCOMETER DEV NAME(LOC) ICUN.5; GLUCOSE,POINT OF CARE 128 MG/DL (70-110)
[2024-11-29 06:26] LABS: BASOPHILS % (AUTO) 0.5 % (0.0-2.0); EOSINOPHILS % (AUTO) 1.1 % (1.0-6.0); HEMATOCRIT 24.4 % (41-53); HEMOGLOBIN 7.9 g/dL (13.5-17.5); LYMPHOCYTES # (AUTO) 1.4 K/uL (1.0-4.8); LYMPHOCYTES % (AUTO) 20.4 % (22.0-44.0); MEAN CORPUSCULAR HEMOGLOBIN 26.4 pg (26.0-34.0); MEAN CORPUSCULAR HGB CONC 32.5 G/dL (31.0-37.0); MEAN CORPUSCULAR VOLUME 81 fL (80-100); MONOCYTES # (AUTO) 1.1 K/uL (0.1-1.0); MONOCYTES % (AUTO) 15.4 % (2.0-9.0); NEUTROPHILS # (AUTO) 4.3 K/uL (1.8-7.7); NEUTROPHILS % (AUTO) 62.6 % (40.0-70.0); PLATELET COUNT (AUTO) 230 K/uL (150-450); RED BLOOD CELL COUNT(AUTO) 3.01 MIL/uL (4.50-5.90); RED CELL DISTRIBUTION WIDTH 16.4 % (11.5-14.5); WHITE BLOOD COUNT (AUTO) 6.8 K/uL (4.5-11.0)
[2024-11-29 06:44] LABS: CALCIUM, TOTAL 8.6 mg/dL (8.8-10.5); CREATININE 1.96 mg/dL (0.60-1.30); MAGNESIUM 2.3 mg/dL (1.80-2.40); PHOSPHORUS 3.7 mg/dL (2.5-4.9); POTASSIUM 4.3 mmol/L (3.5-5.1)
[2024-11-29 13:51] LABS: GLUCOMETER DEV NAME(LOC) ICUN.5; GLUCOSE,POINT OF CARE 155 MG/DL (70-110)
[2024-11-29] MEDS: PANTOPRAZOLE SODIUM 80 MG in SODIUM CHLORIDE 0.9% 100 ML IV SCH (17:48)
[2024-11-29] MEDS ORDERED: SODIUM CHLORIDE 0.9% 250 ML IV ONE (18:02)
[2024-11-29 20:40] LABS: GLUCOMETER DEV NAME(LOC) ICU.S6; GLUCOSE,POINT OF CARE 140 MG/DL (70-110)
[2024-11-29 23:55] LABS: GLUCOMETER DEV NAME(LOC) ICUN.5; GLUCOSE,POINT OF CARE 116 MG/DL (70-110)
[2024-11-30] VITALS (20 sets, daily range): BP systolic 94–149; BP diastolic 51–87; PULSE 66–83; RESP 14–24; TEMP 97.3–101.2; O2SAT 99–100
[2024-11-30] MEDS ORDERED: SODIUM CHLORIDE 0.9% 250 ML IV ONE ×2 (00:02→17:50)
[2024-11-30 00:25] LABS: GLUCOMETER DEV NAME(LOC) ICUN.5; GLUCOSE,POINT OF CARE 130 MG/DL (70-110)
[2024-11-30 05:31] LABS: GLUCOMETER DEV NAME(LOC) ICUN.5; GLUCOSE,POINT OF CARE 141 MG/DL (70-110)
[2024-11-30 06:47] LABS: BAND NEUTROPHILS % (MANUAL) 0 % (0-5)
[2024-11-30 06:57] LABS: HEMATOCRIT 22.7 % (41-53); HEMOGLOBIN 7.4 g/dL (13.5-17.5); MEAN CORPUSCULAR HEMOGLOBIN 26.2 pg (26.0-34.0); MEAN CORPUSCULAR HGB CONC 32.5 G/dL (31.0-37.0); MEAN CORPUSCULAR VOLUME 81 fL (80-100); PLATELET COUNT (AUTO) 224 K/uL (150-450); RED BLOOD CELL COUNT(AUTO) 2.82 MIL/uL (4.50-5.90); RED CELL DISTRIBUTION WIDTH 16.6 % (11.5-14.5); WHITE BLOOD COUNT (AUTO) 5.5 K/uL (4.5-11.0)
[2024-11-30 07:12] LABS: ALBUMIN 1.9 g/dL (3.4-5.0); BILIRUBIN,TOTAL 0.3 mg/dL (0.1-1.0); CALCIUM, TOTAL 8.6 mg/dL (8.8-10.5); CREATININE 1.71 mg/dL (0.60-1.30); POTASSIUM 3.9 mmol/L (3.5-5.1); TOTAL PROTEIN, SERUM 5.8 g/dL (6.4-8.2)
[2024-11-30 07:28] LABS: EOSINOPHILS % (MANUAL) 1 % (1-6); LYMPHOCYTES % (MANUAL) 17 % (22-44); MONOCYTES % (MANUAL) 12 % (2-9); SEGMENTED NEUTROPHILS % 70 % (40-70); TOTAL CELLS COUNTED 100
[2024-11-30 12:56] LABS: GLUCOMETER DEV NAME(LOC) ICUN.5; GLUCOSE,POINT OF CARE 142 MG/DL (70-110)
[2024-11-30 14:52] LABS: HEMATOCRIT 22.3 % (41-53); HEMOGLOBIN 7.1 g/dL (13.5-17.5); MEAN CORPUSCULAR HEMOGLOBIN 26.1 pg (26.0-34.0); MEAN CORPUSCULAR HGB CONC 31.9 G/dL (31.0-37.0); MEAN CORPUSCULAR VOLUME 82 fL (80-100); PLATELET COUNT (AUTO) 246 K/uL (150-450); RED BLOOD CELL COUNT(AUTO) 2.73 MIL/uL (4.50-5.90); RED CELL DISTRIBUTION WIDTH 16.4 % (11.5-14.5); WHITE BLOOD COUNT (AUTO) 6.3 K/uL (4.5-11.0)
[2024-11-30 15:48] LABS: BAND NEUTROPHILS % (MANUAL) 2 % (0-5); EOSINOPHILS % (MANUAL) 2 % (1-6); LYMPHOCYTES % (MANUAL) 11 % (22-44); METAMYELOCYTES % 5 % (0-0); MONOCYTES % (MANUAL) 9 % (2-9); MYELOCYTES % 1 % (0-0); SEGMENTED NEUTROPHILS % 70 % (40-70); TOTAL CELLS COUNTED 100
[2024-11-30] MEDS: ACETAMINOPHEN 325 MG TABLET PO PRN (18:29)
[2024-11-30 20:01] LABS: GLUCOMETER DEV NAME(LOC) ICU.S6; GLUCOSE,POINT OF CARE 154 MG/DL (70-110)
[2024-12-01] VITALS (14 sets, daily range): BP systolic 113–138; BP diastolic 60–89; PULSE 67–81; RESP 24; TEMP 97.9–101.6; O2SAT 24–100
[2024-12-01 02:41] LABS: GLUCOMETER DEV NAME(LOC) ICU.S6; GLUCOSE,POINT OF CARE 142 MG/DL (70-110)
[2024-12-01 03:03] LABS: HEMATOCRIT 23.6 % (41-53); HEMOGLOBIN 7.7 g/dL (13.5-17.5); MEAN CORPUSCULAR HEMOGLOBIN 26.7 pg (26.0-34.0); MEAN CORPUSCULAR HGB CONC 32.5 G/dL (31.0-37.0); MEAN CORPUSCULAR VOLUME 82 fL (80-100); PLATELET COUNT (AUTO) 256 K/uL (150-450); RED BLOOD CELL COUNT(AUTO) 2.87 MIL/uL (4.50-5.90); RED CELL DISTRIBUTION WIDTH 16.3 % (11.5-14.5)
[2024-12-01 03:24] LABS: ALBUMIN 1.8 g/dL (3.4-5.0); BILIRUBIN,TOTAL 0.4 mg/dL (0.1-1.0); CALCIUM, TOTAL 8.3 mg/dL (8.8-10.5); CREATININE 1.85 mg/dL (0.60-1.30); POTASSIUM 4.5 mmol/L (3.5-5.1); TOTAL PROTEIN, SERUM 5.5 g/dL (6.4-8.2)
[2024-12-01 03:37] LABS: BAND NEUTROPHILS % (MANUAL) 3 % (0-5); EOSINOPHILS % (MANUAL) 1 % (1-6); LYMPHOCYTES % (MANUAL) 20 % (22-44); METAMYELOCYTES % 2 % (0-0); MONOCYTES % (MANUAL) 10 % (2-9); MYELOCYTES % 1 % (0-0); SEGMENTED NEUTROPHILS % 63 % (40-70); TOTAL CELLS COUNTED 100
[2024-12-01 05:41] LABS: GLUCOMETER DEV NAME(LOC) ICU.S6; GLUCOSE,POINT OF CARE 119 MG/DL (70-110)
[2024-12-01 11:51] LABS: GLUCOMETER DEV NAME(LOC) ICU.S6; GLUCOSE,POINT OF CARE 165 MG/DL (70-110)
[2024-12-01 17:50] LABS: GLUCOMETER DEV NAME(LOC) ICUN.5; GLUCOSE,POINT OF CARE 185 MG/DL (70-110)
[2024-12-02] VITALS (14 sets, daily range): BP systolic 116–143; BP diastolic 66–90; PULSE 65–74; RESP 24; TEMP 97.7–99.9; O2SAT 24–100
[2024-12-02] MEDS ORDERED: SODIUM CHLORIDE 0.9% 250 ML IV ONE (03:07)
[2024-12-02 03:10] LABS: GLUCOMETER DEV NAME(LOC) ICUN.5; GLUCOSE,POINT OF CARE 158 MG/DL (70-110)
[2024-12-02 05:43] LABS: BASOPHILS % (AUTO) 0.3 % (0.0-2.0); EOSINOPHILS % (AUTO) 0.8 % (1.0-6.0); HEMATOCRIT 24.3 % (41-53); HEMOGLOBIN 7.8 g/dL (13.5-17.5); LYMPHOCYTES # (AUTO) 1.6 K/uL (1.0-4.8); LYMPHOCYTES % (AUTO) 16.7 % (22.0-44.0); MEAN CORPUSCULAR HEMOGLOBIN 26.7 pg (26.0-34.0); MEAN CORPUSCULAR HGB CONC 32.1 G/dL (31.0-37.0); MEAN CORPUSCULAR VOLUME 83 fL (80-100); MONOCYTES # (AUTO) 0.8 K/uL (0.1-1.0); NEUTROPHILS # (AUTO) 7.1 K/uL (1.8-7.7); NEUTROPHILS % (AUTO) 74.2 % (40.0-70.0); PLATELET COUNT (AUTO) 179 K/uL (150-450); RED BLOOD CELL COUNT(AUTO) 2.92 MIL/uL (4.50-5.90); RED CELL DISTRIBUTION WIDTH 16.9 % (11.5-14.5); WHITE BLOOD COUNT (AUTO) 9.6 K/uL (4.5-11.0)
[2024-12-02 05:52] LABS: CALCIUM, TOTAL 8.7 mg/dL (8.8-10.5); CREATININE 2.03 mg/dL (0.60-1.30); MAGNESIUM 2.1 mg/dL (1.80-2.40); PHOSPHORUS 3.5 mg/dL (2.5-4.9); POTASSIUM 4.2 mmol/L (3.5-5.1)
[2024-12-02 06:06] LABS: GLUCOMETER DEV NAME(LOC) ICU.S6; GLUCOSE,POINT OF CARE 126 MG/DL (70-110)
[2024-12-02] MEDS: FUROSEMIDE 40 MG/4 ML VIAL IVP SCH (11:11)
[2024-12-02 13:06] LABS: GLUCOMETER DEV NAME(LOC) ICUN.5; GLUCOSE,POINT OF CARE 162 MG/DL (70-110)
[2024-12-02 13:46] LABS: C.DIFF GDH ANTIGEN, Stool Negative (Negative); C.DIFF TOXINS A&B, Stool Negative (Negative)
[2024-12-02 14:26] LABS: ABG BASE EXCESS -1.4 mmol/L (-2.0-3.0); ABG CARBOXYHEMOGLOBIN 0.4 % (0.5-1.5); ABG HCO3 23.6 mmol/L (21.0-28.0); ABG OXYGEN CONTENT 11.4 mL/dL (15.0-23.0); ABG OXYGEN SATURATION 98.9 % (94.0-98.0); ABG OXYHEMOGLOBIN 98.5 % (94.0-98.0); ABG PCO2 33 mmHg (32.0-48.0); ABG PH 7.455 (7.350-7.450); ALLEN TEST, BLOOD GAS Positive; PO2, ARTERIAL BG 129.5 mmHg (83.0-108.0); SITE, BLOOD GAS LFT RADIAL; SOURCE, BLOOD GAS ARTERIAL; TEMPERATURE, FAHRENHEIT, BG 97.8 FAHREN (96.0-98.6)
[2024-12-02 14:27] LABS: ABG A-A DIFF O2 46.1 mmHg (10-20.0); O2 DEVICE,BLOOD GAS VENTILATOR (ROOM AIR); PEEP,BG 5 cm H2O; VT, ABG 450 ml
[2024-12-02 18:05] LABS: GLUCOMETER DEV NAME(LOC) ICUN.5; GLUCOSE,POINT OF CARE 151 MG/DL (70-110)
[2024-12-02] MEDS: HEPARIN SODIUM,PORCINE 5,000 UNITS/ML VIAL SQ SCH (20:23)
[2024-12-03] VITALS (14 sets, daily range): BP systolic 126–139; BP diastolic 67–78; PULSE 63–79; RESP 24; TEMP 98.5–100.2; O2SAT 98–100
[2024-12-03 03:56] LABS: GLUCOMETER DEV NAME(LOC) ICUN.5; GLUCOSE,POINT OF CARE 155 MG/DL (70-110)
[2024-12-03 06:11] LABS: BASOPHILS % (AUTO) 0.6 % (0.0-2.0); EOSINOPHILS % (AUTO) 0.8 % (1.0-6.0); HEMATOCRIT 24.6 % (41-53); HEMOGLOBIN 7.9 g/dL (13.5-17.5); LYMPHOCYTES # (AUTO) 1.3 K/uL (1.0-4.8); LYMPHOCYTES % (AUTO) 12.9 % (22.0-44.0); MEAN CORPUSCULAR HEMOGLOBIN 26.2 pg (26.0-34.0); MEAN CORPUSCULAR VOLUME 82 fL (80-100); MONOCYTES # (AUTO) 0.7 K/uL (0.1-1.0); NEUTROPHILS % (AUTO) 78.7 % (40.0-70.0); PLATELET COUNT (AUTO) 263 K/uL (150-450); RED CELL DISTRIBUTION WIDTH 17.2 % (11.5-14.5); WHITE BLOOD COUNT (AUTO) 10.1 K/uL (4.5-11.0)
[2024-12-03 06:23] LABS: CALCIUM, TOTAL 8.6 mg/dL (8.8-10.5); CREATININE 2.04 mg/dL (0.60-1.30); MAGNESIUM 1.8 mg/dL (1.80-2.40); POTASSIUM 3.8 mmol/L (3.5-5.1)
[2024-12-03] MEDS ORDERED: FentaNYL CITRATE PF 100 MCG/2 ML VIAL ONE (09:29)
[2024-12-03] MEDS ORDERED: MIDAZOLAM HCL 2 MG/2 ML VIAL ONE (09:29)
[2024-12-03] MEDS ORDERED: DiphenhydrAMINE HCL 50 MG/ML VIAL ONE (09:30)
[2024-12-03] MEDS ORDERED: SODIUM TETRADECYL SULFATE 3% 60 MG/2 ML VIAL IVP ONE (09:30)
[2024-12-03] MEDS ORDERED: ATROPINE SULFATE 0.1 MG/ML 10 ML SYRINGE IVP ONE (09:30)
[2024-12-03] MEDS ORDERED: NALOXONE HCL 0.4 MG/ML VIAL ONE (09:30)
[2024-12-03] MEDS ORDERED: EPINEPHrine 1:10,000 [1 MG/10 ML] SYRINGE ONE (09:30)
[2024-12-03] MEDS ORDERED: FLUMAZENIL 0.1 MG/ML 5 ML VIAL IVP ONE (09:30)
[2024-12-03 09:46] LABS: GLUCOMETER DEV NAME(LOC) ICU.S6; GLUCOSE,POINT OF CARE 112 MG/DL (70-110)
[2024-12-03] MEDS: FERROUS GLUCONATE 324 MG TABLET GT SCH (16:58)
[2024-12-03 17:31] LABS: GLUCOMETER DEV NAME(LOC) ICUN.5; GLUCOSE,POINT OF CARE 130 MG/DL (70-110)
[2024-12-03 17:31] LABS: GLUCOMETER DEV NAME(LOC) ICUN.5; GLUCOSE,POINT OF CARE 145 MG/DL (70-110)
[2024-12-03] MEDS: PANTOPRAZOLE SODIUM 40 MG/VIAL IVP SCH (21:08)
[2024-12-04] VITALS (15 sets, daily range): BP systolic 118–141; BP diastolic 64–97; PULSE 65–79; RESP 24; TEMP 98.8–100; O2SAT 94–100
[2024-12-04] MEDS ORDERED: SODIUM CHLORIDE 0.9% 250 ML IV ONE (00:04)
[2024-12-04 05:31] LABS: GLUCOMETER DEV NAME(LOC) ICU.S6; GLUCOSE,POINT OF CARE 157 MG/DL (70-110)
[2024-12-04 06:19] LABS: BASOPHILS % (AUTO) 0.7 % (0.0-2.0); EOSINOPHILS % (AUTO) 0.4 % (1.0-6.0); HEMATOCRIT 24.2 % (41-53); HEMOGLOBIN 7.7 g/dL (13.5-17.5); LYMPHOCYTES # (AUTO) 1.3 K/uL (1.0-4.8); LYMPHOCYTES % (AUTO) 14.2 % (22.0-44.0); MEAN CORPUSCULAR HEMOGLOBIN 26.5 pg (26.0-34.0); MEAN CORPUSCULAR HGB CONC 31.9 G/dL (31.0-37.0); MEAN CORPUSCULAR VOLUME 83 fL (80-100); MONOCYTES # (AUTO) 0.6 K/uL (0.1-1.0); MONOCYTES % (AUTO) 6.6 % (2.0-9.0); NEUTROPHILS # (AUTO) 7.1 K/uL (1.8-7.7); NEUTROPHILS % (AUTO) 78.1 % (40.0-70.0); PLATELET COUNT (AUTO) 288 K/uL (150-450); RED BLOOD CELL COUNT(AUTO) 2.92 MIL/uL (4.50-5.90); RED CELL DISTRIBUTION WIDTH 17.1 % (11.5-14.5); WHITE BLOOD COUNT (AUTO) 9.1 K/uL (4.5-11.0)
[2024-12-04 06:31] LABS: CALCIUM, TOTAL 8.1 mg/dL (8.8-10.5); CREATININE 2.1 mg/dL (0.60-1.30); POTASSIUM 3.9 mmol/L (3.5-5.1)
[2024-12-04 12:15] LABS: GLUCOMETER DEV NAME(LOC) ICUN.5; GLUCOSE,POINT OF CARE 181 MG/DL (70-110)
[2024-12-04 12:16] LABS: GLUCOMETER DEV NAME(LOC) ICUN.5; GLUCOSE,POINT OF CARE 153 MG/DL (70-110)
[2024-12-04] MEDS: FUROSEMIDE 40 MG/4 ML VIAL IVP ONE (12:18)
[2024-12-04] MEDS: FentaNYL CIT 1000MCG/0.9% NACL 100 ML IV PRN (14:28)
[2024-12-04 18:51] LABS: GLUCOMETER DEV NAME(LOC) ICUN.5; GLUCOSE,POINT OF CARE 153 MG/DL (70-110)
[2024-12-05] VITALS (15 sets, daily range): BP systolic 130–145; BP diastolic 68–83; PULSE 61–80; RESP 24; TEMP 98.1–99.2; O2SAT 95–100
[2024-12-05 00:51] LABS: GLUCOMETER DEV NAME(LOC) ICUN.5; GLUCOSE,POINT OF CARE 176 MG/DL (70-110)
[2024-12-05 06:06] LABS: GLUCOMETER DEV NAME(LOC) ICUN.5; GLUCOSE,POINT OF CARE 169 MG/DL (70-110)
[2024-12-05 06:28] LABS: BASOPHILS % (AUTO) 0.6 % (0.0-2.0); EOSINOPHILS % (AUTO) 1.1 % (1.0-6.0); HEMATOCRIT 24.2 % (41-53); HEMOGLOBIN 7.7 g/dL (13.5-17.5); LYMPHOCYTES # (AUTO) 1.5 K/uL (1.0-4.8); LYMPHOCYTES % (AUTO) 16.6 % (22.0-44.0); MEAN CORPUSCULAR HEMOGLOBIN 26.4 pg (26.0-34.0); MEAN CORPUSCULAR HGB CONC 31.9 G/dL (31.0-37.0); MEAN CORPUSCULAR VOLUME 83 fL (80-100); MONOCYTES # (AUTO) 0.7 K/uL (0.1-1.0); MONOCYTES % (AUTO) 7.3 % (2.0-9.0); NEUTROPHILS # (AUTO) 6.9 K/uL (1.8-7.7); NEUTROPHILS % (AUTO) 74.4 % (40.0-70.0); PLATELET COUNT (AUTO) 310 K/uL (150-450); RED BLOOD CELL COUNT(AUTO) 2.92 MIL/uL (4.50-5.90); RED CELL DISTRIBUTION WIDTH 17.3 % (11.5-14.5); WHITE BLOOD COUNT (AUTO) 9.2 K/uL (4.5-11.0)
[2024-12-05 06:44] LABS: CALCIUM, TOTAL 8.8 mg/dL (8.8-10.5); CREATININE 2.04 mg/dL (0.60-1.30); POTASSIUM 3.4 mmol/L (3.5-5.1)
[2024-12-05] MEDS ORDERED: SODIUM CHLORIDE 0.9% 250 ML IV ONE (12:09)
[2024-12-05] MEDS: POTASSIUM CHL 10 MEQ/WATER 50 ML IV SCH (13:37)
[2024-12-05 19:31] LABS: GLUCOMETER DEV NAME(LOC) ICU.S6; GLUCOSE,POINT OF CARE 159 MG/DL (70-110)
[2024-12-05 19:31] LABS: GLUCOMETER DEV NAME(LOC) ICU.S6; GLUCOSE,POINT OF CARE 141 MG/DL (70-110)
[2024-12-05] MEDS: FUROSEMIDE 40 MG/4 ML VIAL IVP SCH (21:19)
[2024-12-06] VITALS (14 sets, daily range): BP systolic 135–148; BP diastolic 67–80; PULSE 57–74; RESP 19–24; TEMP 97.1–98.4; O2SAT 94–100
[2024-12-06 06:32] LABS: BASOPHILS % (AUTO) 0.7 % (0.0-2.0); EOSINOPHILS % (AUTO) 1.4 % (1.0-6.0); HEMATOCRIT 23.2 % (41-53); HEMOGLOBIN 7.6 g/dL (13.5-17.5); LYMPHOCYTES # (AUTO) 1.7 K/uL (1.0-4.8); MEAN CORPUSCULAR HGB CONC 32.9 G/dL (31.0-37.0); MEAN CORPUSCULAR VOLUME 82 fL (80-100); MONOCYTES # (AUTO) 0.6 K/uL (0.1-1.0); MONOCYTES % (AUTO) 6.9 % (2.0-9.0); NEUTROPHILS # (AUTO) 5.9 K/uL (1.8-7.7); PLATELET COUNT (AUTO) 324 K/uL (150-450); RED BLOOD CELL COUNT(AUTO) 2.83 MIL/uL (4.50-5.90); RED CELL DISTRIBUTION WIDTH 17.5 % (11.5-14.5); WHITE BLOOD COUNT (AUTO) 8.3 K/uL (4.5-11.0)
[2024-12-06 06:58] LABS: CALCIUM, TOTAL 8.8 mg/dL (8.8-10.5); CREATININE 1.81 mg/dL (0.60-1.30); POTASSIUM 3.5 mmol/L (3.5-5.1)
[2024-12-06 07:00] LABS: PROTHROMBIN TIME 11.4 SEC (9.4-11.6)
[2024-12-06] MEDS: POTASSIUM CHL 10 MEQ/WATER 50 ML IV SCH (16:37)
[2024-12-06 17:16] LABS: GLUCOMETER DEV NAME(LOC) ICU.S6; GLUCOSE,POINT OF CARE 161 MG/DL (70-110)
[2024-12-06 17:16] LABS: GLUCOMETER DEV NAME(LOC) ICU.S6; GLUCOSE,POINT OF CARE 109 MG/DL (70-110)
[2024-12-06 18:41] LABS: GLUCOMETER DEV NAME(LOC) ICUN.5; GLUCOSE,POINT OF CARE 144 MG/DL (70-110)
[2024-12-07] VITALS (15 sets, daily range): BP systolic 103–135; BP diastolic 50–77; PULSE 59–77; RESP 24–26; TEMP 97–98.4; O2SAT 91–100
[2024-12-07 05:06] LABS: GLUCOMETER DEV NAME(LOC) ICUN.5; GLUCOSE,POINT OF CARE 180 MG/DL (70-110)
[2024-12-07 06:02] LABS: BASOPHILS % (AUTO) 0.5 % (0.0-2.0); EOSINOPHILS % (AUTO) 0.9 % (1.0-6.0); HEMATOCRIT 26.7 % (41-53); HEMOGLOBIN 8.6 g/dL (13.5-17.5); LYMPHOCYTES # (AUTO) 1.4 K/uL (1.0-4.8); LYMPHOCYTES % (AUTO) 16.3 % (22.0-44.0); MEAN CORPUSCULAR HEMOGLOBIN 26.7 pg (26.0-34.0); MEAN CORPUSCULAR HGB CONC 32.2 G/dL (31.0-37.0); MEAN CORPUSCULAR VOLUME 83 fL (80-100); MONOCYTES # (AUTO) 0.6 K/uL (0.1-1.0); MONOCYTES % (AUTO) 7.3 % (2.0-9.0); NEUTROPHILS # (AUTO) 6.5 K/uL (1.8-7.7); PLATELET COUNT (AUTO) 357 K/uL (150-450); RED BLOOD CELL COUNT(AUTO) 3.22 MIL/uL (4.50-5.90); RED CELL DISTRIBUTION WIDTH 18.3 % (11.5-14.5); WHITE BLOOD COUNT (AUTO) 8.7 K/uL (4.5-11.0)
[2024-12-07 06:14] LABS: CREATININE 2.07 mg/dL (0.60-1.30); POTASSIUM 3.9 mmol/L (3.5-5.1)
[2024-12-07] MEDS: DAPAGLIFLOZIN PROPANEDIOL 5 MG TABLET NG SCH (08:52)
[2024-12-07 08:56] LABS: GLUCOMETER DEV NAME(LOC) ICUN.5; GLUCOSE,POINT OF CARE 130 MG/DL (70-110)
[2024-12-07] MEDS: LISINOPRIL 5 MG TABLET NG SCH (08:56)
[2024-12-07] MEDS ORDERED: SODIUM CHLORIDE 0.9% 250 ML IV ONE (11:54)
[2024-12-07 12:51] LABS: GLUCOMETER DEV NAME(LOC) ICUN.5; GLUCOSE,POINT OF CARE 120 MG/DL (70-110)
[2024-12-07 21:41] LABS: GLUCOMETER DEV NAME(LOC) ICU.S6; GLUCOSE,POINT OF CARE 127 MG/DL (70-110)
[2024-12-08] VITALS (14 sets, daily range): BP systolic 94–147; BP diastolic 53–72; PULSE 65–79; RESP 21–24; TEMP 97–98.9; O2SAT 92–100
[2024-12-08 00:36] LABS: GLUCOMETER DEV NAME(LOC) ICU.S6; GLUCOSE,POINT OF CARE 141 MG/DL (70-110)
[2024-12-08 06:35] LABS: GLUCOMETER DEV NAME(LOC) ICU.S6; GLUCOSE,POINT OF CARE 113 MG/DL (70-110)
[2024-12-08 07:47] LABS: ALBUMIN 1.9 g/dL (3.4-5.0); BILIRUBIN,TOTAL 0.3 mg/dL (0.1-1.0); CALCIUM, TOTAL 8.9 mg/dL (8.8-10.5); CREATININE 2.22 mg/dL (0.60-1.30); POTASSIUM 3.8 mmol/L (3.5-5.1); TOTAL PROTEIN, SERUM 6.6 g/dL (6.4-8.2)
[2024-12-08 07:48] LABS: BASOPHILS % (AUTO) 0.2 % (0.0-2.0); EOSINOPHILS % (AUTO) 0.8 % (1.0-6.0); HEMATOCRIT 25.2 % (41-53); HEMOGLOBIN 7.9 g/dL (13.5-17.5); LYMPHOCYTES % (AUTO) 7.1 % (22.0-44.0); MEAN CORPUSCULAR HEMOGLOBIN 26.4 pg (26.0-34.0); MEAN CORPUSCULAR HGB CONC 31.5 G/dL (31.0-37.0); MEAN CORPUSCULAR VOLUME 84 fL (80-100); MONOCYTES # (AUTO) 0.8 K/uL (0.1-1.0); MONOCYTES % (AUTO) 5.8 % (2.0-9.0); NEUTROPHILS # (AUTO) 11.6 K/uL (1.8-7.7); PLATELET COUNT (AUTO) 357 K/uL (150-450); RED CELL DISTRIBUTION WIDTH 18.3 % (11.5-14.5); WHITE BLOOD COUNT (AUTO) 13.5 K/uL (4.5-11.0)
[2024-12-08 07:54] LABS: NEUTROPHILS % (AUTO) 86.1 % (40.0-70.0)
[2024-12-08 11:50] LABS: GLUCOMETER DEV NAME(LOC) ICU.S6; GLUCOSE,POINT OF CARE 122 MG/DL (70-110)
[2024-12-08 13:03] LABS: ABG BASE EXCESS 1.3 mmol/L (-2.0-3.0); ABG CARBOXYHEMOGLOBIN 0.8 % (0.5-1.5); ABG HCO3 25.5 mmol/L (21.0-28.0); ABG METHEMOGLOBIN 0.8 % (0.0-1.5); ABG OXYGEN CONTENT 16.5 mL/dL (15.0-23.0); ABG OXYGEN SATURATION 98.5 % (94.0-98.0); ABG OXYHEMOGLOBIN 96.9 % (94.0-98.0); ABG PCO2 42 mmHg (32.0-48.0); ABG PH 7.407 (7.350-7.450); PO2, ARTERIAL BG 106.5 mmHg (83.0-108.0); SOURCE, BLOOD GAS ARTERIAL; TEMPERATURE, FAHRENHEIT, BG 98.4 FAHREN (96.0-98.6)
[2024-12-08 13:28] LABS: ABG A-A DIFF O2 57.9 mmHg (10-20.0); ALLEN TEST, BLOOD GAS Positive; O2 DEVICE,BLOOD GAS VENTILATOR (ROOM AIR); PEEP,BG 0 cm H2O; SITE, BLOOD GAS LFT RADIAL; VENT MODE, BG CPAP (ROOM AIR)
[2024-12-08 13:29] LABS: PRESSURE SUPPORT, BG 8 cm H2O
[2024-12-08] MEDS: SCOPOLAMINE HYDROBROMIDE 1 MG/72 HOUR PATCH TD SCH (18:12)
[2024-12-08 18:51] LABS: GLUCOMETER DEV NAME(LOC) ICUN.5; GLUCOSE,POINT OF CARE 146 MG/DL (70-110)
[2024-12-09] VITALS (14 sets, daily range): BP systolic 112–136; BP diastolic 58–73; PULSE 63–80; RESP 24–25; TEMP 97.5–99.5; O2SAT 93–100
[2024-12-09 03:01] LABS: GLUCOMETER DEV NAME(LOC) ICUN.5; GLUCOSE,POINT OF CARE 128 MG/DL (70-110)
[2024-12-09] MEDS ORDERED: SODIUM CHLORIDE 0.9% 250 ML IV ONE (05:50)
[2024-12-09 06:45] LABS: GLUCOMETER DEV NAME(LOC) ICUN.5; GLUCOSE,POINT OF CARE 140 MG/DL (70-110)
[2024-12-09 06:52] LABS: BASOPHILS % (AUTO) 0.4 % (0.0-2.0); HEMATOCRIT 22.6 % (41-53); HEMOGLOBIN 7.4 g/dL (13.5-17.5); LYMPHOCYTES % (AUTO) 10.3 % (22.0-44.0); MEAN CORPUSCULAR HEMOGLOBIN 27.1 pg (26.0-34.0); MEAN CORPUSCULAR HGB CONC 32.9 G/dL (31.0-37.0); MEAN CORPUSCULAR VOLUME 82 fL (80-100); MONOCYTES # (AUTO) 0.8 K/uL (0.1-1.0); MONOCYTES % (AUTO) 8.3 % (2.0-9.0); NEUTROPHILS # (AUTO) 8.1 K/uL (1.8-7.7); PLATELET COUNT (AUTO) 302 K/uL (150-450); RED BLOOD CELL COUNT(AUTO) 2.74 MIL/uL (4.50-5.90); RED CELL DISTRIBUTION WIDTH 18.6 % (11.5-14.5); WHITE BLOOD COUNT (AUTO) 10.1 K/uL (4.5-11.0)
[2024-12-09 07:24] LABS: ALBUMIN 1.8 g/dL (3.4-5.0); BILIRUBIN,TOTAL 0.4 mg/dL (0.1-1.0); CALCIUM, TOTAL 8.8 mg/dL (8.8-10.5); CREATININE 2.41 mg/dL (0.60-1.30); POTASSIUM 3.5 mmol/L (3.5-5.1); TOTAL PROTEIN, SERUM 6.4 g/dL (6.4-8.2)
[2024-12-09] MEDS ORDERED: ROCURONIUM BROMIDE 10 MG/ML 5 ML VIAL ONE (10:21)
[2024-12-09] MEDS: ROCURONIUM BROMIDE 10 MG/ML 5 ML VIAL IVP ONE (11:24)
[2024-12-09 15:49] LABS: ABG BASE EXCESS 2.5 mmol/L (-2.0-3.0); ABG CARBOXYHEMOGLOBIN 0.6 % (0.5-1.5); ABG HCO3 26.6 mmol/L (21.0-28.0); ABG METHEMOGLOBIN 0.1 % (0.0-1.5); ABG OXYGEN CONTENT 11.6 mL/dL (15.0-23.0); ABG OXYGEN SATURATION 98.9 % (94.0-98.0); ABG OXYHEMOGLOBIN 98.2 % (94.0-98.0); ABG PCO2 37 mmHg (32.0-48.0); ABG PH 7.469 (7.350-7.450); ABG TOTAL HEMOGLOBIN 8.2 G/dL (13.5-17.5); PO2, ARTERIAL BG 121.1 mmHg (83.0-108.0); SOURCE, BLOOD GAS ARTERIAL; TEMPERATURE, FAHRENHEIT, BG 97.6 FAHREN (96.0-98.6)
[2024-12-09 15:50] LABS: ABG A-A DIFF O2 122.4 mmHg (10-20.0); ALLEN TEST, BLOOD GAS Positive; O2 DEVICE,BLOOD GAS VENTILATOR (ROOM AIR); PEEP,BG 5 cm H2O; SITE, BLOOD GAS LFT RADIAL; VT, ABG 450 ml
[2024-12-09 17:30] LABS: GLUCOMETER DEV NAME(LOC) ICU.S6; GLUCOSE,POINT OF CARE 175 MG/DL (70-110)
[2024-12-09 20:06] LABS: GLUCOMETER DEV NAME(LOC) ICUN.5; GLUCOSE,POINT OF CARE 163 MG/DL (70-110)
[2024-12-10] VITALS (12 sets, daily range): BP systolic 111–140; BP diastolic 57–73; PULSE 66–76; RESP 18–24; TEMP 97.7–100.2; O2SAT 98–100
[2024-12-10 04:26] LABS: GLUCOMETER DEV NAME(LOC) ICUN.5; GLUCOSE,POINT OF CARE 147 MG/DL (70-110)
[2024-12-10 06:20] LABS: GLUCOMETER DEV NAME(LOC) ICUN.5; GLUCOSE,POINT OF CARE 139 MG/DL (70-110)
[2024-12-10 06:58] LABS: BASOPHILS % (AUTO) 0.5 % (0.0-2.0); EOSINOPHILS % (AUTO) 0.9 % (1.0-6.0); HEMATOCRIT 23.1 % (41-53); HEMOGLOBIN 7.5 g/dL (13.5-17.5); LYMPHOCYTES # (AUTO) 1.2 K/uL (1.0-4.8); LYMPHOCYTES % (AUTO) 13.3 % (22.0-44.0); MEAN CORPUSCULAR HEMOGLOBIN 26.7 pg (26.0-34.0); MEAN CORPUSCULAR HGB CONC 32.2 G/dL (31.0-37.0); MEAN CORPUSCULAR VOLUME 83 fL (80-100); MONOCYTES # (AUTO) 0.6 K/uL (0.1-1.0); MONOCYTES % (AUTO) 6.9 % (2.0-9.0); NEUTROPHILS # (AUTO) 7.1 K/uL (1.8-7.7); NEUTROPHILS % (AUTO) 78.4 % (40.0-70.0); PLATELET COUNT (AUTO) 302 K/uL (150-450); RED BLOOD CELL COUNT(AUTO) 2.79 MIL/uL (4.50-5.90); RED CELL DISTRIBUTION WIDTH 18.7 % (11.5-14.5); WHITE BLOOD COUNT (AUTO) 9.1 K/uL (4.5-11.0)
[2024-12-10 07:20] LABS: ALBUMIN 1.9 g/dL (3.4-5.0); BILIRUBIN,TOTAL 0.2 mg/dL (0.1-1.0); CALCIUM, TOTAL 9.2 mg/dL (8.8-10.5); CREATININE 2.36 mg/dL (0.60-1.30); MAGNESIUM 2.1 mg/dL (1.80-2.40); PHOSPHORUS 3.4 mg/dL (2.5-4.9); POTASSIUM 3.4 mmol/L (3.5-5.1); TOTAL PROTEIN, SERUM 6.7 g/dL (6.4-8.2)
[2024-12-10] MEDS: POTASSIUM CHLORIDE 10% 40 MEQ/30 ML LIQUID UDCUP NG ONE ×2 (11:27→15:57)
[2024-12-10 16:31] LABS: GLUCOMETER DEV NAME(LOC) ICUN.5; GLUCOSE,POINT OF CARE 164 MG/DL (70-110)
[2024-12-10 20:11] LABS: GLUCOMETER DEV NAME(LOC) ICUN.5; GLUCOSE,POINT OF CARE 138 MG/DL (70-110)
[2024-12-11] VITALS (13 sets, daily range): BP systolic 123–152; BP diastolic 50–90; PULSE 65–73; RESP 24–25; TEMP 98.3–99.5; O2SAT 100
[2024-12-11 01:10] LABS: GLUCOMETER DEV NAME(LOC) ICUN.5; GLUCOSE,POINT OF CARE 145 MG/DL (70-110)
[2024-12-11 06:40] LABS: GLUCOMETER DEV NAME(LOC) ICU.S6; GLUCOSE,POINT OF CARE 115 MG/DL (70-110)
[2024-12-11] MEDS: DEXMEDETOMIDINE 400 MCG/NS 100 ML IV PRN (09:31)
[2024-12-11 12:30] LABS: GLUCOMETER DEV NAME(LOC) ICU.S6; GLUCOSE,POINT OF CARE 158 MG/DL (70-110)
[2024-12-11] MEDS ORDERED: SODIUM CHLORIDE 0.9% 250 ML IV ONE (16:13)
[2024-12-11 18:46] LABS: GLUCOMETER DEV NAME(LOC) ICU.S6; GLUCOSE,POINT OF CARE 165 MG/DL (70-110)
[2024-12-12] VITALS (14 sets, daily range): BP systolic 136–163; BP diastolic 71–96; PULSE 65–95; RESP 24–32; TEMP 99.6–100.3; O2SAT 94–100
[2024-12-12 00:50] LABS: GLUCOMETER DEV NAME(LOC) ICU.S6; GLUCOSE,POINT OF CARE 148 MG/DL (70-110)
[2024-12-12 06:20] LABS: CALCIUM, TOTAL 9.7 mg/dL (8.8-10.5); CREATININE 2.04 mg/dL (0.60-1.30); POTASSIUM 3.8 mmol/L (3.5-5.1)
[2024-12-12 06:26] LABS: GLUCOMETER DEV NAME(LOC) ICU.S6; GLUCOSE,POINT OF CARE 187 MG/DL (70-110)
[2024-12-12 12:50] LABS: SOURCE, BLOOD GAS ARTERIAL
[2024-12-12 13:12] LABS: ABG BASE EXCESS -0.8 mmol/L (-2.0-3.0); ABG CARBOXYHEMOGLOBIN 0.8 % (0.5-1.5); ABG METHEMOGLOBIN 0.1 % (0.0-1.5); ABG OXYGEN CONTENT 11.2 mL/dL (15.0-23.0); ABG OXYGEN SATURATION 96.5 % (94.0-98.0); ABG OXYHEMOGLOBIN 95.6 % (94.0-98.0); ABG PCO2 35 mmHg (32.0-48.0); ABG TOTAL HEMOGLOBIN 8.2 G/dL (13.5-17.5); PO2, ARTERIAL BG 90.3 mmHg (83.0-108.0); TEMPERATURE, FAHRENHEIT, BG 99.5 FAHREN (96.0-98.6)
[2024-12-12 13:41] LABS: GLUCOMETER DEV NAME(LOC) ICU.S6; GLUCOSE,POINT OF CARE 217 MG/DL (70-110)
[2024-12-12 15:37] LABS: ALLEN TEST, BLOOD GAS Positive; SITE, BLOOD GAS LFT RADIAL
[2024-12-12 18:16] LABS: GLUCOMETER DEV NAME(LOC) ICU.S6; GLUCOSE,POINT OF CARE 181 MG/DL (70-110)
[2024-12-13] VITALS (13 sets, daily range): BP systolic 139–163; BP diastolic 78–95; PULSE 61–74; RESP 24–27; TEMP 98.1–99.9; O2SAT 92–100
[2024-12-13 01:51] LABS: GLUCOMETER DEV NAME(LOC) ICU.S6; GLUCOSE,POINT OF CARE 171 MG/DL (70-110)
[2024-12-13 06:38] LABS: BASOPHILS % (AUTO) 0.6 % (0.0-2.0); EOSINOPHILS % (AUTO) 0.7 % (1.0-6.0); HEMATOCRIT 26.6 % (41-53); HEMOGLOBIN 8.4 g/dL (13.5-17.5); LYMPHOCYTES # (AUTO) 1.6 K/uL (1.0-4.8); LYMPHOCYTES % (AUTO) 17.8 % (22.0-44.0); MEAN CORPUSCULAR HEMOGLOBIN 26.4 pg (26.0-34.0); MEAN CORPUSCULAR HGB CONC 31.7 G/dL (31.0-37.0); MEAN CORPUSCULAR VOLUME 83 fL (80-100); MONOCYTES # (AUTO) 0.8 K/uL (0.1-1.0); MONOCYTES % (AUTO) 9.3 % (2.0-9.0); NEUTROPHILS # (AUTO) 6.3 K/uL (1.8-7.7); NEUTROPHILS % (AUTO) 71.6 % (40.0-70.0); PLATELET COUNT (AUTO) 291 K/uL (150-450); RED CELL DISTRIBUTION WIDTH 18.7 % (11.5-14.5); WHITE BLOOD COUNT (AUTO) 8.9 K/uL (4.5-11.0)
[2024-12-13 06:59] LABS: CALCIUM, TOTAL 9.5 mg/dL (8.8-10.5); CREATININE 1.85 mg/dL (0.60-1.30); POTASSIUM 3.8 mmol/L (3.5-5.1)
[2024-12-13] MEDS: ROCURONIUM BROMIDE 10 MG/ML 5 ML VIAL IVP ONE (08:38)
[2024-12-13] MEDS ORDERED: LIDOCAINE/PF 1% 5 ML VIAL ONE (09:48)
[2024-12-13] MEDS: SILVER NITRATE APPLICATOR 1 EA STICK TP ONE (10:23)
[2024-12-13] MEDS ORDERED: SODIUM CHLORIDE 0.9% 250 ML IV ONE (10:41)
[2024-12-13 12:16] LABS: GLUCOMETER DEV NAME(LOC) ICU.S6; GLUCOSE,POINT OF CARE 192 MG/DL (70-110)
[2024-12-13] MEDS: EPOETIN ALFA 10,000 UNITS/ML VIAL SQ SCH (13:34)
[2024-12-13 16:30] LABS: GLUCOMETER DEV NAME(LOC) ICUN.5; GLUCOSE,POINT OF CARE 190 MG/DL (70-110)
[2024-12-13 20:01] LABS: GLUCOMETER DEV NAME(LOC) ICUN.5; GLUCOSE,POINT OF CARE 162 MG/DL (70-110)
[2024-12-13 23:50] LABS: GLUCOMETER DEV NAME(LOC) ICU.S6; GLUCOSE,POINT OF CARE 183 MG/DL (70-110)
[2024-12-14] VITALS (13 sets, daily range): BP systolic 127–144; BP diastolic 64–80; PULSE 66–88; RESP 20–28; TEMP 99.3–101; O2SAT 98–100
[2024-12-14 05:50] LABS: HEMATOCRIT 26.5 % (41-53); HEMOGLOBIN 8.6 g/dL (13.5-17.5); MEAN CORPUSCULAR HEMOGLOBIN 27.1 pg (26.0-34.0); MEAN CORPUSCULAR HGB CONC 32.4 G/dL (31.0-37.0); MEAN CORPUSCULAR VOLUME 84 fL (80-100); PLATELET COUNT (AUTO) 273 K/uL (150-450); RED BLOOD CELL COUNT(AUTO) 3.17 MIL/uL (4.50-5.90); RED CELL DISTRIBUTION WIDTH 18.2 % (11.5-14.5); WHITE BLOOD COUNT (AUTO) 8.9 K/uL (4.5-11.0)
[2024-12-14 06:01] LABS: CALCIUM, TOTAL 9.3 mg/dL (8.8-10.5); CREATININE 1.81 mg/dL (0.60-1.30); POTASSIUM 3.8 mmol/L (3.5-5.1)
[2024-12-14 06:21] LABS: GLUCOMETER DEV NAME(LOC) ICU.S6; GLUCOSE,POINT OF CARE 200 MG/DL (70-110)
[2024-12-14 08:36] LABS: BAND NEUTROPHILS % (MANUAL) 12 % (0-5); LYMPHOCYTES % (MANUAL) 24 % (22-44); MONOCYTES % (MANUAL) 2 % (2-9); RBC MORPHOLOGY COMMENT NORMAL RBC MORPH; SEGMENTED NEUTROPHILS % 62 % (40-70); TOTAL CELLS COUNTED 100
[2024-12-14 14:00] LABS: EOSINOPHILS % (AUTO) 0.9 % (1.0-6.0); HEMATOCRIT 27.6 % (41-53); HEMOGLOBIN 8.6 g/dL (13.5-17.5); LYMPHOCYTES # (AUTO) 1.1 K/uL (1.0-4.8); LYMPHOCYTES % (AUTO) 9.2 % (22.0-44.0); MEAN CORPUSCULAR HEMOGLOBIN 26.1 pg (26.0-34.0); MEAN CORPUSCULAR HGB CONC 31.2 G/dL (31.0-37.0); MEAN CORPUSCULAR VOLUME 84 fL (80-100); MONOCYTES # (AUTO) 0.8 K/uL (0.1-1.0); MONOCYTES % (AUTO) 7.3 % (2.0-9.0); NEUTROPHILS # (AUTO) 9.4 K/uL (1.8-7.7); NEUTROPHILS % (AUTO) 81.6 % (40.0-70.0); PLATELET COUNT (AUTO) 289 K/uL (150-450); WHITE BLOOD COUNT (AUTO) 11.6 K/uL (4.5-11.0)
[2024-12-14 17:26] LABS: GLUCOMETER DEV NAME(LOC) ICU.S6; GLUCOSE,POINT OF CARE 219 MG/DL (70-110)
[2024-12-14 20:20] LABS: GLUCOMETER DEV NAME(LOC) ICUN.5; GLUCOSE,POINT OF CARE 183 MG/DL (70-110)
[2024-12-15] VITALS (14 sets, daily range): BP systolic 105–158; BP diastolic 62–91; PULSE 60–92; RESP 24–30; TEMP 98.4–99.6; O2SAT 93–100
[2024-12-15 00:36] LABS: GLUCOMETER DEV NAME(LOC) ICU.S6; GLUCOSE,POINT OF CARE 203 MG/DL (70-110)
[2024-12-15] MEDS ORDERED: SODIUM CHLORIDE 0.9% 250 ML IV ONE (03:27)
[2024-12-15 05:51] LABS: BASOPHILS % (AUTO) 0.5 % (0.0-2.0); EOSINOPHILS % (AUTO) 0.7 % (1.0-6.0); HEMATOCRIT 26.3 % (41-53); HEMOGLOBIN 8.5 g/dL (13.5-17.5); LYMPHOCYTES # (AUTO) 1.5 K/uL (1.0-4.8); MEAN CORPUSCULAR HGB CONC 32.1 G/dL (31.0-37.0); MEAN CORPUSCULAR VOLUME 84 fL (80-100); MONOCYTES # (AUTO) 1.2 K/uL (0.1-1.0); MONOCYTES % (AUTO) 9.5 % (2.0-9.0); NEUTROPHILS # (AUTO) 9.5 K/uL (1.8-7.7); NEUTROPHILS % (AUTO) 77.3 % (40.0-70.0); PLATELET COUNT (AUTO) 280 K/uL (150-450); RED BLOOD CELL COUNT(AUTO) 3.13 MIL/uL (4.50-5.90); RED CELL DISTRIBUTION WIDTH 18.5 % (11.5-14.5); WHITE BLOOD COUNT (AUTO) 12.3 K/uL (4.5-11.0)
[2024-12-15 06:05] LABS: CREATININE 1.78 mg/dL (0.60-1.30); POTASSIUM 4.1 mmol/L (3.5-5.1)
[2024-12-15 10:45] LABS: GLUCOMETER DEV NAME(LOC) ICUN.5; GLUCOSE,POINT OF CARE 206 MG/DL (70-110)
[2024-12-15 14:18] LABS: PROTHROMBIN TIME 11.3 SEC (9.4-11.6)
[2024-12-15 16:00] LABS: GLUCOMETER DEV NAME(LOC) ICU.S6; GLUCOSE,POINT OF CARE 244 MG/DL (70-110)
[2024-12-15 23:56] LABS: GLUCOMETER DEV NAME(LOC) ICUN.5; GLUCOSE,POINT OF CARE 177 MG/DL (70-110)
[2024-12-16] VITALS (14 sets, daily range): BP systolic 88–139; BP diastolic 51–75; PULSE 70–91; RESP 24; TEMP 98.8–100.2; O2SAT 97–100
[2024-12-16 05:55] LABS: GLUCOMETER DEV NAME(LOC) ICU.S6; GLUCOSE,POINT OF CARE 185 MG/DL (70-110)
[2024-12-16 05:55] LABS: GLUCOMETER DEV NAME(LOC) ICU.S6; GLUCOSE,POINT OF CARE 150 MG/DL (70-110)
[2024-12-16 06:30] LABS: BASOPHILS % (AUTO) 0.4 % (0.0-2.0); EOSINOPHILS % (AUTO) 0.9 % (1.0-6.0); HEMATOCRIT 24.9 % (41-53); HEMOGLOBIN 7.9 g/dL (13.5-17.5); LYMPHOCYTES # (AUTO) 1.1 K/uL (1.0-4.8); LYMPHOCYTES % (AUTO) 7.9 % (22.0-44.0); MEAN CORPUSCULAR HEMOGLOBIN 26.3 pg (26.0-34.0); MEAN CORPUSCULAR HGB CONC 31.8 G/dL (31.0-37.0); MEAN CORPUSCULAR VOLUME 83 fL (80-100); MONOCYTES # (AUTO) 1.1 K/uL (0.1-1.0); MONOCYTES % (AUTO) 8.1 % (2.0-9.0); NEUTROPHILS # (AUTO) 11.7 K/uL (1.8-7.7); NEUTROPHILS % (AUTO) 82.7 % (40.0-70.0); PLATELET COUNT (AUTO) 281 K/uL (150-450); RED CELL DISTRIBUTION WIDTH 18.5 % (11.5-14.5); WHITE BLOOD COUNT (AUTO) 14.1 K/uL (4.5-11.0)
[2024-12-16 06:32] LABS: CALCIUM, TOTAL 8.8 mg/dL (8.8-10.5); CREATININE 1.57 mg/dL (0.60-1.30); POTASSIUM 4.3 mmol/L (3.5-5.1)
[2024-12-16] MEDS: CeFAZolin 1 GM/DEXTROSE 50 ML IV ONE (10:23)
[2024-12-16 18:01] LABS: GLUCOMETER DEV NAME(LOC) ICUN.5; GLUCOSE,POINT OF CARE 110 MG/DL (70-110)
[2024-12-16 18:46] LABS: GLUCOMETER DEV NAME(LOC) ICU.S6; GLUCOSE,POINT OF CARE 103 MG/DL (70-110)
[2024-12-17] VITALS (15 sets, daily range): BP systolic 90–151; BP diastolic 50–87; PULSE 67–100; RESP 24–33; TEMP 98.3–100.1; O2SAT 97–100
[2024-12-17 05:36] LABS: GLUCOMETER DEV NAME(LOC) ICUN.5; GLUCOSE,POINT OF CARE 111 MG/DL (70-110)
[2024-12-17 05:45] LABS: BASOPHILS % (AUTO) 0.5 % (0.0-2.0); EOSINOPHILS % (AUTO) 1.8 % (1.0-6.0); HEMATOCRIT 26.2 % (41-53); HEMOGLOBIN 8.4 g/dL (13.5-17.5); LYMPHOCYTES # (AUTO) 1.2 K/uL (1.0-4.8); LYMPHOCYTES % (AUTO) 13.8 % (22.0-44.0); MEAN CORPUSCULAR VOLUME 84 fL (80-100); MONOCYTES # (AUTO) 0.6 K/uL (0.1-1.0); MONOCYTES % (AUTO) 7.4 % (2.0-9.0); NEUTROPHILS # (AUTO) 6.6 K/uL (1.8-7.7); NEUTROPHILS % (AUTO) 76.5 % (40.0-70.0); PLATELET COUNT (AUTO) 263 K/uL (150-450); RED BLOOD CELL COUNT(AUTO) 3.11 MIL/uL (4.50-5.90); RED CELL DISTRIBUTION WIDTH 19.3 % (11.5-14.5); WHITE BLOOD COUNT (AUTO) 8.7 K/uL (4.5-11.0)
[2024-12-17 06:00] LABS: CREATININE 1.84 mg/dL (0.60-1.30); MAGNESIUM 2.1 mg/dL (1.80-2.40); PHOSPHORUS 3.8 mg/dL (2.5-4.9); POTASSIUM 3.9 mmol/L (3.5-5.1)
[2024-12-17 06:01] LABS: % IRON SATURATION 5.6 % (30-44)
[2024-12-17] MEDS: ETHYL ALCOHOL 62% ANTISEPTIC NASAL SANITIZER 0.6 ML AMPUL NASAL SCH (09:08)
[2024-12-17 12:06] LABS: GLUCOMETER DEV NAME(LOC) ICUN.5; GLUCOSE,POINT OF CARE 99 MG/DL (70-110)
[2024-12-17] MEDS: SOD FERRIC GLUC COMPLX/SUCROSE 125 MG in SODIUM CHLORIDE 0.9% 100 ML IV SCH (14:29)
[2024-12-17] MEDS: HEPARIN SODIUM,PORCINE 5,000 UNITS/ML VIAL SQ SCH (16:20)
[2024-12-17 17:20] LABS: GLUCOMETER DEV NAME(LOC) ICUN.5; GLUCOSE,POINT OF CARE 182 MG/DL (70-110)
[2024-12-17 19:26] LABS: GLUCOMETER DEV NAME(LOC) ICU.S6; GLUCOSE,POINT OF CARE 217 MG/DL (70-110)
[2024-12-18] VITALS (19 sets, daily range): BP systolic 110–183; BP diastolic 54–86; PULSE 62–107; RESP 15–39; TEMP 98.1–102.4; O2SAT 100
[2024-12-18 05:31] LABS: GLUCOMETER DEV NAME(LOC) ICUN.5; GLUCOSE,POINT OF CARE 140 MG/DL (70-110)
[2024-12-18 06:03] LABS: CREATININE 1.88 mg/dL (0.60-1.30)
[2024-12-18 07:30] LABS: GLUCOMETER DEV NAME(LOC) ICU.S6; GLUCOSE,POINT OF CARE 164 MG/DL (70-110)
[2024-12-18 08:07] LABS: COMPLEMENT C3 192 mg/dL (82-167); COMPLEMENT C4 42 mg/dL (12-38)
[2024-12-18 08:07] LABS: IGA (IFE) 575 mg/dL (61-437); IGM (IMMUNOFIXATION) 51 mg/dL (20-172)
[2024-12-18 09:12] LABS: BASOPHILS % (AUTO) 0.5 % (0.0-2.0); EOSINOPHILS % (AUTO) 1.3 % (1.0-6.0); HEMATOCRIT 22.1 % (41-53); LYMPHOCYTES # (AUTO) 0.9 K/uL (1.0-4.8); LYMPHOCYTES % (AUTO) 12.4 % (22.0-44.0); MEAN CORPUSCULAR HEMOGLOBIN 26.5 pg (26.0-34.0); MEAN CORPUSCULAR HGB CONC 31.5 G/dL (31.0-37.0); MEAN CORPUSCULAR VOLUME 84 fL (80-100); MONOCYTES # (AUTO) 0.7 K/uL (0.1-1.0); MONOCYTES % (AUTO) 9.5 % (2.0-9.0); NEUTROPHILS # (AUTO) 5.3 K/uL (1.8-7.7); NEUTROPHILS % (AUTO) 76.3 % (40.0-70.0); PLATELET COUNT (AUTO) 224 K/uL (150-450); RED BLOOD CELL COUNT(AUTO) 2.63 MIL/uL (4.50-5.90); RED CELL DISTRIBUTION WIDTH 18.6 % (11.5-14.5); WHITE BLOOD COUNT (AUTO) 6.9 K/uL (4.5-11.0)
[2024-12-18] MEDS: QUEtiapine FUMARATE 25 MG TABLET PEG SCH (10:23)
[2024-12-18] MEDS ORDERED: SODIUM CHLORIDE 0.9% 250 ML IV ONE (11:16)
[2024-12-18 17:26] LABS: GLUCOMETER DEV NAME(LOC) ICUN.5; GLUCOSE,POINT OF CARE 175 MG/DL (70-110)
[2024-12-18 17:26] LABS: GLUCOMETER DEV NAME(LOC) ICUN.5; GLUCOSE,POINT OF CARE 248 MG/DL (70-110)
[2024-12-18] MEDS: MORPHINE SULFATE 2 MG/ML SYRINGE IVP PRN (20:31)
[2024-12-18] MEDS: LORazepam 2 MG/ML VIAL IVP PRN (20:31)
[2024-12-18] MEDS: HydrALAZINE HCL 20 MG/ML VIAL IVP PRN (22:27)
[2024-12-19] VITALS (14 sets, daily range): BP systolic 136–174; BP diastolic 72–103; PULSE 95–139; RESP 24–45; TEMP 99.8–101.7; O2SAT 98–100
[2024-12-19 00:40] LABS: GLUCOMETER DEV NAME(LOC) ICUN.5; GLUCOSE,POINT OF CARE 201 MG/DL (70-110)
[2024-12-19 06:13] LABS: BASOPHILS % (AUTO) 0.2 % (0.0-2.0); EOSINOPHILS % (AUTO) 0 % (1.0-6.0); HEMATOCRIT 24.7 % (41-53); HEMOGLOBIN 7.8 g/dL (13.5-17.5); LYMPHOCYTES # (AUTO) 0.9 K/uL (1.0-4.8); LYMPHOCYTES % (AUTO) 7.2 % (22.0-44.0); MEAN CORPUSCULAR HGB CONC 31.6 G/dL (31.0-37.0); MEAN CORPUSCULAR VOLUME 82 fL (80-100); NEUTROPHILS # (AUTO) 10.1 K/uL (1.8-7.7); NEUTROPHILS % (AUTO) 84.6 % (40.0-70.0); PLATELET COUNT (AUTO) 285 K/uL (150-450); RED BLOOD CELL COUNT(AUTO) 2.99 MIL/uL (4.50-5.90); RED CELL DISTRIBUTION WIDTH 18.1 % (11.5-14.5); WHITE BLOOD COUNT (AUTO) 11.9 K/uL (4.5-11.0)
[2024-12-19 06:25] LABS: CALCIUM, TOTAL 9.3 mg/dL (8.8-10.5); CREATININE 1.87 mg/dL (0.60-1.30); MAGNESIUM 2.2 mg/dL (1.80-2.40); PHOSPHORUS 3.1 mg/dL (2.5-4.9); POTASSIUM 3.7 mmol/L (3.5-5.1)
[2024-12-19] MEDS ORDERED: SODIUM CHLORIDE 0.9% 2,000 ML ONE (07:41)
[2024-12-19 13:05] LABS: GLUCOMETER DEV NAME(LOC) ICU.S6; GLUCOSE,POINT OF CARE 210 MG/DL (70-110)
[2024-12-19 13:06] LABS: GLUCOMETER DEV NAME(LOC) ICUN.5; GLUCOSE,POINT OF CARE 253 MG/DL (70-110)
[2024-12-19 19:11] LABS: GLUCOMETER DEV NAME(LOC) ICU.S6; GLUCOSE,POINT OF CARE 288 MG/DL (70-110)
[2024-12-19] MEDS ORDERED: SODIUM CHLORIDE 0.9% 250 ML IV ONE (23:55)
[2024-12-20] VITALS (12 sets, daily range): BP systolic 126–176; BP diastolic 71–97; PULSE 86–139; RESP 21–45; TEMP 98.8–101.8; O2SAT 93–100
[2024-12-20 01:07] LABS: GLUCOMETER DEV NAME(LOC) ICUN.5; GLUCOSE,POINT OF CARE 249 MG/DL (70-110)
[2024-12-20 06:21] LABS: CALCIUM, TOTAL 9.4 mg/dL (8.8-10.5); CREATININE 1.97 mg/dL (0.60-1.30); MAGNESIUM 2.3 mg/dL (1.80-2.40); POTASSIUM 3.9 mmol/L (3.5-5.1)
[2024-12-20 07:36] LABS: BASOPHILS % (AUTO) 0.3 % (0.0-2.0); EOSINOPHILS % (AUTO) 0 % (1.0-6.0); HEMOGLOBIN 7.4 g/dL (13.5-17.5); LYMPHOCYTES # (AUTO) 0.9 K/uL (1.0-4.8); LYMPHOCYTES % (AUTO) 8.3 % (22.0-44.0); MEAN CORPUSCULAR HEMOGLOBIN 26.2 pg (26.0-34.0); MEAN CORPUSCULAR VOLUME 84 fL (80-100); MONOCYTES # (AUTO) 0.9 K/uL (0.1-1.0); MONOCYTES % (AUTO) 7.9 % (2.0-9.0); NEUTROPHILS # (AUTO) 9.6 K/uL (1.8-7.7); NEUTROPHILS % (AUTO) 83.5 % (40.0-70.0); PLATELET COUNT (AUTO) 279 K/uL (150-450); RED BLOOD CELL COUNT(AUTO) 2.85 MIL/uL (4.50-5.90); RED CELL DISTRIBUTION WIDTH 18.7 % (11.5-14.5); WHITE BLOOD COUNT (AUTO) 11.5 K/uL (4.5-11.0)
[2024-12-20] MEDS: CEFEPIME HCL 2 GM in DEXTROSE 5%-WATER 50 ML IV SCH (16:54)
[2024-12-20 17:21] LABS: GLUCOMETER DEV NAME(LOC) ICU.S6; GLUCOSE,POINT OF CARE 242 MG/DL (70-110)
[2024-12-20] MEDS ORDERED: SODIUM CHLORIDE 0.9% 250 ML IV ONE (19:33)
[2024-12-20 21:45] LABS: GLUCOMETER DEV NAME(LOC) ICU.S6; GLUCOSE,POINT OF CARE 227 MG/DL (70-110)
[2024-12-21] VITALS (15 sets, daily range): BP systolic 92–167; BP diastolic 54–88; PULSE 92–113; RESP 24–38; TEMP 98–100.9; O2SAT 93–100
[2024-12-21 00:06] LABS: GLUCOMETER DEV NAME(LOC) ICUN.5; GLUCOSE,POINT OF CARE 171 MG/DL (70-110)
[2024-12-21 06:04] LABS: CALCIUM, TOTAL 9.5 mg/dL (8.8-10.5); CREATININE 1.94 mg/dL (0.60-1.30); MAGNESIUM 2.4 mg/dL (1.80-2.40); PHOSPHORUS 3.1 mg/dL (2.5-4.9); POTASSIUM 4.2 mmol/L (3.5-5.1)
[2024-12-21 08:30] LABS: GLUCOMETER DEV NAME(LOC) ICUN.5; GLUCOSE,POINT OF CARE 152 MG/DL (70-110)
[2024-12-21 13:22] LABS: GLUCOMETER DEV NAME(LOC) ICUN.5; GLUCOSE,POINT OF CARE 166 MG/DL (70-110)
[2024-12-21] MEDS: LORazepam 1 MG TABLET PO SCH (17:54)
[2024-12-22] VITALS (15 sets, daily range): BP systolic 78–148; BP diastolic 55–81; PULSE 73–111; RESP 24–38; TEMP 98.6–100; O2SAT 80–100
[2024-12-22 00:16] LABS: GLUCOMETER DEV NAME(LOC) ICUN.5; GLUCOSE,POINT OF CARE 168 MG/DL (70-110)
[2024-12-22] MEDS ORDERED: SODIUM CHLORIDE 0.9% 250 ML IV ONE (04:44)
[2024-12-22 05:51] LABS: GLUCOMETER DEV NAME(LOC) ICU.S6; GLUCOSE,POINT OF CARE 205 MG/DL (70-110)
[2024-12-22 06:32] LABS: BASOPHILS % (AUTO) 0.2 % (0.0-2.0); EOSINOPHILS % (AUTO) 0.3 % (1.0-6.0); HEMATOCRIT 27.8 % (41-53); HEMOGLOBIN 8.7 g/dL (13.5-17.5); LYMPHOCYTES # (AUTO) 1.7 K/uL (1.0-4.8); LYMPHOCYTES % (AUTO) 9.6 % (22.0-44.0); MEAN CORPUSCULAR HEMOGLOBIN 26.2 pg (26.0-34.0); MEAN CORPUSCULAR HGB CONC 31.3 G/dL (31.0-37.0); MEAN CORPUSCULAR VOLUME 84 fL (80-100); MONOCYTES % (AUTO) 11.3 % (2.0-9.0); NEUTROPHILS % (AUTO) 78.6 % (40.0-70.0); PLATELET COUNT (AUTO) 310 K/uL (150-450); RED BLOOD CELL COUNT(AUTO) 3.31 MIL/uL (4.50-5.90); RED CELL DISTRIBUTION WIDTH 19.4 % (11.5-14.5); WHITE BLOOD COUNT (AUTO) 17.8 K/uL (4.5-11.0)
[2024-12-22 06:45] LABS: CALCIUM, TOTAL 9.8 mg/dL (8.8-10.5); CREATININE 2.22 mg/dL (0.60-1.30); MAGNESIUM 2.7 mg/dL (1.80-2.40); PHOSPHORUS 2.9 mg/dL (2.5-4.9); POTASSIUM 4.1 mmol/L (3.5-5.1)
[2024-12-22 07:15] LABS: GLUCOMETER DEV NAME(LOC) ICUN.5; GLUCOSE,POINT OF CARE 209 MG/DL (70-110)
[2024-12-22 11:41] LABS: GLUCOMETER DEV NAME(LOC) ICU.S6; GLUCOSE,POINT OF CARE 203 MG/DL (70-110)
[2024-12-22] MEDS: *CLINICAL-LEVOFLOXACIN IVPB DOSING CLINICAL ONE (14:49)
[2024-12-22] MEDS: LEVOFLOXACIN 750 MG/D5% WATER 150 ML IV SCH (16:57)
[2024-12-22 20:36] LABS: GLUCOMETER DEV NAME(LOC) ICU.S6; GLUCOSE,POINT OF CARE 227 MG/DL (70-110)
[2024-12-23] VITALS (30 sets, daily range): BP systolic 105–165; BP diastolic 57–98; PULSE 63–109; RESP 19–29; TEMP 98.7–99.7; O2SAT 96–100
[2024-12-23 02:15] LABS: GLUCOMETER DEV NAME(LOC) ICU.S6; GLUCOSE,POINT OF CARE 214 MG/DL (70-110)
[2024-12-23 06:01] LABS: ALBUMIN 1.2 g/dL (3.4-5.0); BILIRUBIN,TOTAL 0.4 mg/dL (0.1-1.0); CALCIUM, TOTAL 9.4 mg/dL (8.8-10.5); CREATININE 2.32 mg/dL (0.60-1.30); MAGNESIUM 2.4 mg/dL (1.80-2.40); PHOSPHORUS 2.9 mg/dL (2.5-4.9); POTASSIUM 3.9 mmol/L (3.5-5.1); TOTAL PROTEIN, SERUM 6.5 g/dL (6.4-8.2)
[2024-12-23 06:07] LABS: ALBUMIN URINE (ELP) Note: %; TOTAL PROTEIN URINE 265.9 mg/dL (Not Estab.)
[2024-12-23 08:56] LABS: GLUCOMETER DEV NAME(LOC) ICUN.5; GLUCOSE,POINT OF CARE 236 MG/DL (70-110)
[2024-12-23 08:56] LABS: GLUCOMETER DEV NAME(LOC) ICUN.5; GLUCOSE,POINT OF CARE 213 MG/DL (70-110)
[2024-12-23 12:10] LABS: GLUCOMETER DEV NAME(LOC) ICUN.5; GLUCOSE,POINT OF CARE 221 MG/DL (70-110)
[2024-12-23 14:09] LABS: BASOPHILS % (AUTO) 0.4 % (0.0-2.0); EOSINOPHILS % (AUTO) 0.7 % (1.0-6.0); HEMATOCRIT 22.4 % (41-53); LYMPHOCYTES # (AUTO) 0.7 K/uL (1.0-4.8); LYMPHOCYTES % (AUTO) 6.1 % (22.0-44.0); MEAN CORPUSCULAR HEMOGLOBIN 25.8 pg (26.0-34.0); MEAN CORPUSCULAR VOLUME 83 fL (80-100); MONOCYTES # (AUTO) 0.8 K/uL (0.1-1.0); MONOCYTES % (AUTO) 6.7 % (2.0-9.0); NEUTROPHILS # (AUTO) 9.8 K/uL (1.8-7.7); NEUTROPHILS % (AUTO) 86.1 % (40.0-70.0); PLATELET COUNT (AUTO) 317 K/uL (150-450); RED CELL DISTRIBUTION WIDTH 18.9 % (11.5-14.5); WHITE BLOOD COUNT (AUTO) 11.4 K/uL (4.5-11.0)
[2024-12-23 17:25] LABS: GLUCOMETER DEV NAME(LOC) ICUN.5; GLUCOSE,POINT OF CARE 255 MG/DL (70-110)
[2024-12-23] MEDS ORDERED: SODIUM CHLORIDE 0.9% 500 ML IV ONE (18:42)
[2024-12-24] VITALS (14 sets, daily range): BP systolic 117–162; BP diastolic 63–81; PULSE 74–112; RESP 24–30; TEMP 98.3–99.6; O2SAT 94–100
[2024-12-24 00:41] LABS: GLUCOMETER DEV NAME(LOC) ICU.S6; GLUCOSE,POINT OF CARE 252 MG/DL (70-110)
[2024-12-24] MEDS ORDERED: SODIUM CHLORIDE 0.9% 250 ML IV ONE (00:41)
[2024-12-24 06:01] LABS: BASOPHILS % (AUTO) 0.3 % (0.0-2.0); EOSINOPHILS % (AUTO) 0.3 % (1.0-6.0); HEMATOCRIT 23.5 % (41-53); HEMOGLOBIN 7.3 g/dL (13.5-17.5); LYMPHOCYTES % (AUTO) 7.2 % (22.0-44.0); MEAN CORPUSCULAR HEMOGLOBIN 25.7 pg (26.0-34.0); MEAN CORPUSCULAR HGB CONC 31.2 G/dL (31.0-37.0); MEAN CORPUSCULAR VOLUME 82 fL (80-100); MONOCYTES # (AUTO) 0.9 K/uL (0.1-1.0); MONOCYTES % (AUTO) 6.1 % (2.0-9.0); NEUTROPHILS # (AUTO) 12.1 K/uL (1.8-7.7); PLATELET COUNT (AUTO) 333 K/uL (150-450); RED BLOOD CELL COUNT(AUTO) 2.86 MIL/uL (4.50-5.90); RED CELL DISTRIBUTION WIDTH 18.7 % (11.5-14.5)
[2024-12-24 06:11] LABS: CALCIUM, TOTAL 9.5 mg/dL (8.8-10.5); CREATININE 2.18 mg/dL (0.60-1.30); MAGNESIUM 2.5 mg/dL (1.80-2.40); POTASSIUM 4.2 mmol/L (3.5-5.1)
[2024-12-24 06:30] LABS: NEUTROPHILS % (AUTO) 86.1 % (40.0-70.0)
[2024-12-24 07:25] LABS: GLUCOMETER DEV NAME(LOC) ICUN.5; GLUCOSE,POINT OF CARE 285 MG/DL (70-110)
[2024-12-24 17:10] LABS: GLUCOMETER DEV NAME(LOC) ICU.S6; GLUCOSE,POINT OF CARE 294 MG/DL (70-110)
[2024-12-24 17:10] LABS: GLUCOMETER DEV NAME(LOC) ICUN.5; GLUCOSE,POINT OF CARE 263 MG/DL (70-110)
[2024-12-25] VITALS (14 sets, daily range): BP systolic 130–165; BP diastolic 66–97; PULSE 94–109; RESP 24–32; TEMP 98–99.2; O2SAT 97–100
[2024-12-25 02:45] LABS: GLUCOMETER DEV NAME(LOC) ICU.S6; GLUCOSE,POINT OF CARE 306 MG/DL (70-110)
[2024-12-25 06:13] LABS: ALBUMIN 1.2 g/dL (3.4-5.0); BILIRUBIN,TOTAL 0.8 mg/dL (0.1-1.0); CALCIUM, TOTAL 9.5 mg/dL (8.8-10.5); CREATININE 1.91 mg/dL (0.60-1.30); POTASSIUM 4.2 mmol/L (3.5-5.1); TOTAL PROTEIN, SERUM 6.3 g/dL (6.4-8.2)
[2024-12-25 08:16] LABS: GLUCOMETER DEV NAME(LOC) ICUN.5; GLUCOSE,POINT OF CARE 243 MG/DL (70-110)
[2024-12-25 10:39] LABS: BASOPHILS % (AUTO) 0.6 % (0.0-2.0); EOSINOPHILS % (AUTO) 0.4 % (1.0-6.0); HEMATOCRIT 24.2 % (41-53); HEMOGLOBIN 7.6 g/dL (13.5-17.5); LYMPHOCYTES # (AUTO) 0.9 K/uL (1.0-4.8); LYMPHOCYTES % (AUTO) 6.2 % (22.0-44.0); MEAN CORPUSCULAR HEMOGLOBIN 25.9 pg (26.0-34.0); MEAN CORPUSCULAR HGB CONC 31.5 G/dL (31.0-37.0); MEAN CORPUSCULAR VOLUME 82 fL (80-100); MONOCYTES # (AUTO) 1.1 K/uL (0.1-1.0); NEUTROPHILS # (AUTO) 12.9 K/uL (1.8-7.7); PLATELET COUNT (AUTO) 375 K/uL (150-450); RED BLOOD CELL COUNT(AUTO) 2.94 MIL/uL (4.50-5.90); RED CELL DISTRIBUTION WIDTH 18.9 % (11.5-14.5); WHITE BLOOD COUNT (AUTO) 15.1 K/uL (4.5-11.0)
[2024-12-25 10:51] LABS: NEUTROPHILS % (AUTO) 85.8 % (40.0-70.0); RBC MORPHOLOGY COMMENT ABNORMAL RBC MORPH
[2024-12-25 17:21] LABS: GLUCOMETER DEV NAME(LOC) ICUN.5; GLUCOSE,POINT OF CARE 318 MG/DL (70-110)
[2024-12-25] MEDS: DEXTRAN 70 0.1%/HYPROMELL 0.3% 0.9 ML OPHTHALMIC SOLUTION [PF] OU SCH (17:25)
[2024-12-25 21:41] LABS: GLUCOMETER DEV NAME(LOC) ICU.S6; GLUCOSE,POINT OF CARE 290 MG/DL (70-110)
[2024-12-26] VITALS (12 sets, daily range): BP systolic 128–147; BP diastolic 58–86; PULSE 87–113; RESP 24–32; TEMP 98–99.7; O2SAT 94–100
[2024-12-26 05:23] LABS: BASOPHILS % (AUTO) 0.3 % (0.0-2.0); EOSINOPHILS % (AUTO) 0.4 % (1.0-6.0); HEMATOCRIT 25.8 % (41-53); HEMOGLOBIN 8.1 g/dL (13.5-17.5); LYMPHOCYTES # (AUTO) 1.2 K/uL (1.0-4.8); MEAN CORPUSCULAR HEMOGLOBIN 25.9 pg (26.0-34.0); MEAN CORPUSCULAR HGB CONC 31.5 G/dL (31.0-37.0); MEAN CORPUSCULAR VOLUME 82 fL (80-100); MONOCYTES # (AUTO) 1.1 K/uL (0.1-1.0); MONOCYTES % (AUTO) 6.9 % (2.0-9.0); NEUTROPHILS # (AUTO) 13.1 K/uL (1.8-7.7); NEUTROPHILS % (AUTO) 84.4 % (40.0-70.0); PLATELET COUNT (AUTO) 381 K/uL (150-450); RED BLOOD CELL COUNT(AUTO) 3.14 MIL/uL (4.50-5.90); RED CELL DISTRIBUTION WIDTH 19.2 % (11.5-14.5); WHITE BLOOD COUNT (AUTO) 15.5 K/uL (4.5-11.0)
[2024-12-26 05:45] LABS: GLUCOMETER DEV NAME(LOC) ICU.S6; GLUCOSE,POINT OF CARE 289 MG/DL (70-110)
[2024-12-26 08:13] LABS: CALCIUM, TOTAL 9.9 mg/dL (8.8-10.5); CREATININE 1.82 mg/dL (0.60-1.30); POTASSIUM 4.3 mmol/L (3.5-5.1)
[2024-12-26 11:56] LABS: GLUCOMETER DEV NAME(LOC) ICUN.5; GLUCOSE,POINT OF CARE 257 MG/DL (70-110)
[2024-12-26 13:26] LABS: GLUCOMETER DEV NAME(LOC) ICUN.5; GLUCOSE,POINT OF CARE 302 MG/DL (70-110)
[2024-12-26] MEDS: DAPTOMYCIN 500 MG in SODIUM CHLORIDE 0.9% 50 ML IV SCH (15:06)
[2024-12-26 18:21] LABS: GLUCOMETER DEV NAME(LOC) ICUN.5; GLUCOSE,POINT OF CARE 296 MG/DL (70-110)
[2024-12-27] VITALS (15 sets, daily range): BP systolic 150–164; BP diastolic 76–89; PULSE 84–108; RESP 24–29; TEMP 98.8–100; O2SAT 99–100
[2024-12-27] MEDS ORDERED: SODIUM CHLORIDE 0.9% 250 ML IV ONE (00:28)
[2024-12-27 02:11] LABS: GLUCOMETER DEV NAME(LOC) ICUN.5; GLUCOSE,POINT OF CARE 251 MG/DL (70-110)
[2024-12-27 05:48] LABS: BASOPHILS % (AUTO) 0.5 % (0.0-2.0); EOSINOPHILS % (AUTO) 0.7 % (1.0-6.0); HEMOGLOBIN 7.8 g/dL (13.5-17.5); LYMPHOCYTES # (AUTO) 1.5 K/uL (1.0-4.8); LYMPHOCYTES % (AUTO) 11.2 % (22.0-44.0); MEAN CORPUSCULAR HGB CONC 31.3 G/dL (31.0-37.0); MEAN CORPUSCULAR VOLUME 83 fL (80-100); MONOCYTES % (AUTO) 7.6 % (2.0-9.0); NEUTROPHILS # (AUTO) 10.5 K/uL (1.8-7.7); PLATELET COUNT (AUTO) 343 K/uL (150-450); RED CELL DISTRIBUTION WIDTH 19.3 % (11.5-14.5); WHITE BLOOD COUNT (AUTO) 13.1 K/uL (4.5-11.0)
[2024-12-27 06:00] LABS: ALBUMIN 1.5 g/dL (3.4-5.0); BILIRUBIN,TOTAL 0.3 mg/dL (0.1-1.0); CALCIUM, TOTAL 9.8 mg/dL (8.8-10.5); CREATININE 1.61 mg/dL (0.60-1.30); PHOSPHORUS 2.5 mg/dL (2.5-4.9); POTASSIUM 4.2 mmol/L (3.5-5.1); TOTAL PROTEIN, SERUM 6.7 g/dL (6.4-8.2)
[2024-12-27 06:10] LABS: GLUCOMETER DEV NAME(LOC) ICU.S6; GLUCOSE,POINT OF CARE 213 MG/DL (70-110)
[2024-12-27 13:36] LABS: GLUCOMETER DEV NAME(LOC) ICU.S6; GLUCOSE,POINT OF CARE 228 MG/DL (70-110)
[2024-12-27] MEDS: LORazepam 1 MG TABLET PO SCH (20:08)
[2024-12-27] MEDS: CLINDAMYCIN 900 MG/D5% WATER 50 ML IV SCH (20:09)
[2024-12-27 20:16] LABS: GLUCOMETER DEV NAME(LOC) ICU.S6; GLUCOSE,POINT OF CARE 228 MG/DL (70-110)
[2024-12-28] VITALS: BP 156/90; PULSE 87; PULSE 99; RESP 24; TEMP 99.4; O2SAT 99
[2024-12-28 01:00] VITALS: PULSE 95; RESP 24; O2SAT 100
[2024-12-28 02:50] LABS: GLUCOMETER DEV NAME(LOC) ICU.S6; GLUCOSE,POINT OF CARE 224 MG/DL (70-110)
[2024-12-28 04:00] VITALS: BP 170/102; PULSE 101; PULSE 103; PULSE 94; RESP 24; RESP 26; TEMP 99.4; O2SAT 100
[2024-12-28 05:34] LABS: BASOPHILS % (AUTO) 0.4 % (0.0-2.0); EOSINOPHILS % (AUTO) 0.6 % (1.0-6.0); HEMATOCRIT 23.7 % (41-53); HEMOGLOBIN 7.6 g/dL (13.5-17.5); LYMPHOCYTES # (AUTO) 1.4 K/uL (1.0-4.8); LYMPHOCYTES % (AUTO) 11.3 % (22.0-44.0); MEAN CORPUSCULAR HEMOGLOBIN 26.1 pg (26.0-34.0); MEAN CORPUSCULAR HGB CONC 32.1 G/dL (31.0-37.0); MEAN CORPUSCULAR VOLUME 81 fL (80-100); MONOCYTES # (AUTO) 0.8 K/uL (0.1-1.0); MONOCYTES % (AUTO) 6.4 % (2.0-9.0); NEUTROPHILS # (AUTO) 10.1 K/uL (1.8-7.7); NEUTROPHILS % (AUTO) 81.3 % (40.0-70.0); PLATELET COUNT (AUTO) 341 K/uL (150-450); RED BLOOD CELL COUNT(AUTO) 2.92 MIL/uL (4.50-5.90); RED CELL DISTRIBUTION WIDTH 19.1 % (11.5-14.5); WHITE BLOOD COUNT (AUTO) 12.4 K/uL (4.5-11.0)
[2024-12-28 05:42] LABS: CALCIUM, TOTAL 9.7 mg/dL (8.8-10.5); CREATININE 1.62 mg/dL (0.60-1.30); PHOSPHORUS 3.2 mg/dL (2.5-4.9); POTASSIUM 4.4 mmol/L (3.5-5.1)
[2024-12-28 08:00] VITALS: BP 114/55; PULSE 91; RESP 24; RESP 26; TEMP 98.9; O2SAT 100
[2024-12-28 08:11] VITALS: PULSE 88; PULSE 98; RESP 24; O2SAT 88; O2SAT 98
[2024-12-28 12:05] LABS: GLUCOMETER DEV NAME(LOC) ICUN.5; GLUCOSE,POINT OF CARE 214 MG/DL (70-110)
== END 2024-12-28 09:50 | DRG 4 ==
LOC: EMS 23:26 → EDH 11-23 00:19 → ICU 11-23 12:10
PROVIDERS: ADMIT Internal Medicine; ATTEND Internal Medicine
PROC: 4A023N7 Measurement of Cardiac Sampling and Pressure, Left Heart, Percutaneous Approach (ICD-10-PCS; 2024-11-23)
PROC: B2111ZZ Fluoroscopy of Multiple Coronary Arteries using Low Osmolar Contrast (ICD-10-PCS; 2024-11-23)
PROC: B2151ZZ Fluoroscopy of Left Heart using Low Osmolar Contrast (ICD-10-PCS; 2024-11-23)
PROC: 5A1955Z Respiratory Ventilation, Greater than 96 Consecutive Hours (ICD-10-PCS; 2024-11-23)
PROC: 5A12012 Performance of Cardiac Output, Single, Manual (ICD-10-PCS; 2024-11-23)
PROC: 30233N1 Transfusion of Nonautologous Red Blood Cells into Peripheral Vein, Percutaneous Approach (ICD-10-PCS; 2024-11-28)
PROC: 0DJ08ZZ Inspection of Upper Intestinal Tract, Via Natural or Artificial Opening Endoscopic (ICD-10-PCS; 2024-12-03)
PROC: 05H933Z Insertion of Infusion Device into Right Brachial Vein, Percutaneous Approach (ICD-10-PCS; 2024-12-05)
PROC: B54MZZA Ultrasonography of Right Upper Extremity Veins, Guidance (ICD-10-PCS; 2024-12-05)
PROC: 0B113F4 Bypass Trachea to Cutaneous with Tracheostomy Device, Percutaneous Approach (ICD-10-PCS; principal; 2024-12-13)
PROC: 0BJ08ZZ Inspection of Tracheobronchial Tree, Via Natural or Artificial Opening Endoscopic (ICD-10-PCS; 2024-12-13)
PROC: 0DH63UZ Insertion of Feeding Device into Stomach, Percutaneous Approach (ICD-10-PCS; 2024-12-16)
DX: I21.19 ST elevation (STEMI) myocardial infarction involving other coronary artery of inferior wall (principal); A41.9 Sepsis, unspecified organism; R57.0 Cardiogenic shock; I46.9 Cardiac arrest, cause unspecified; I50.43 Acute on chronic combined systolic (congestive) and diastolic (congestive) heart failure; J69.0 Pneumonitis due to inhalation of food and vomit; K29.71 Gastritis, unspecified, with bleeding; J96.00 Acute respiratory failure, unspecified whether with hypoxia or hypercapnia; E87.20 Acidosis, unspecified; E87.1 Hypo-osmolality and hyponatremia; G93.1 Anoxic brain damage, not elsewhere classified; I13.0 Hypertensive heart and chronic kidney disease with heart failure and stage 1 through stage 4 chronic kidney disease, or unspecified chronic kidney disease; N18.4 Chronic kidney disease, stage 4 (severe); D62 Acute posthemorrhagic anemia; Z99.11 Dependence on respirator [ventilator] status; F15.10 Other stimulant abuse, uncomplicated; F19.129 Other psychoactive substance abuse with intoxication, unspecified; E11.22 Type 2 diabetes mellitus with diabetic chronic kidney disease; E87.5 Hyperkalemia; F20.9 Schizophrenia, unspecified; I25.10 Atherosclerotic heart disease of native coronary artery without angina pectoris; R13.10 Dysphagia, unspecified; I25.5 Ischemic cardiomyopathy; E87.6 Hypokalemia; E78.00 Pure hypercholesterolemia, unspecified; F17.210 Nicotine dependence, cigarettes, uncomplicated; Z79.02 Long term (current) use of antithrombotics/antiplatelets; Z79.899 Other long term (current) drug therapy; Z95.5 Presence of coronary angioplasty implant and graft
CPT/HCPCS: 31624; 36245; 36569; 36600; 70450; 71045; 71250; 73200; 73218; 76770; 76937; 80048; 80053; 80076; 80307; 81001; 81002; 82271; 82550; 82570; 82784; 82805; 82962; 83540; 83550; 83605; 83735; 83880; 84100; 84132; 84145; 84156; 84166; 84300; 84484; 84540; 85007; 85025; 85027; 85576; 85610; 85730; 86160; 86334; 86850; 86900; 86901; 86923; 87040; 87070; 87081; 87186; 87205; 87324; 87449; 88108; 88305; 89055; 92950; 93005; 93306; 93970; 93971; 94002; 94003; 96365; 96368; 96372; 96375; 99291; G0238; G0480; J0171; J0360; J0461; J0610; J0690; J0692; J0712; J0878; J0885; J1200; J1644; J1815; J1940; J1956; J2001; J2060; J2250; J2270; J2310; J2470; J2543; J2704; J2916; J3010; J3480; J3490; J7030; J7040; J7050; J7060; P9016; Q9967; 36415-L1; 36415-TC; Z7610